=== PATIENT | female | born 2000 | race Caucasian/White ===

== ENCOUNTER 2019-10-30 02:37 | Inpatient (IN) | payer MEDICAID ==
[2019-10-30] MEDS ORDERED: Sodium Chloride 0.9% 10 ML SDV IV PRN (05:22)
[2019-10-30] MEDS ORDERED: Misoprostol 200 MCG Tab PO PRN (05:22)
[2019-10-30] MEDS ORDERED: Carboprost Tromethamine 250 MCG/1 ML Amp IM PRN (05:22)
[2019-10-30] MEDS ORDERED: Tranexamic Acid 1,000 MG in Sodium Chloride 0.9% 100 ML IV PRN (05:22)
[2019-10-30] MEDS ORDERED: Ondansetron 4 MG/2 ML SDV IVPUSH PRN (05:22)
[2019-10-30] MEDS ORDERED: Lidocaine 1% 50 ML MDV INJECT PRN (05:22)
[2019-10-30] MEDS ORDERED: Water For Irrigation,Sterile 1,000 ML Container IRR PRN (05:22)
[2019-10-30] MEDS ORDERED: Sodium Chloride 0.9% 2.5 ML Syringe FLUSH PRN (05:22)
[2019-10-30] MEDS ORDERED: Sodium Chloride 0.9% 10 ML Syringe FLUSH PRN (05:22)
[2019-10-30] MEDS ORDERED: Methylergonovine 0.2 MG/1 ML Amp IM PRN (05:22)
[2019-10-30] MEDS ORDERED: Oxytocin/0.9 % Sodium Chloride 30 UNIT/500 ML BAG IV SCH (05:30)
[2019-10-30] MEDS ORDERED: Lactated Ringers 1,000 ML IV SCH (05:30)
--- NOTE | 2019-10-30 07:41 | PCM.LDHP ---
L&D History of Present Illness - General Date of Service: 10/30/19 Admit Problem/Dx: Patient Status Order with Admit Dx/Problem 10/30/19 02:40 Patient Status [ADT] Routine 10/30/19 05:23 Patient Status [ADT] Routine Admission Diagnosis/Problem Admission Diagnosis/Problem Source of Information: Patient History Limitations: Reports: No Limitations - History of Present Illness Improves with: Reports: None Worsens with: Reports: None Associated Symptoms: Reports: N - Related Data Allergies/Adverse Reactions: Allergies Allergy/AdvReac Type Severity Reaction Status Date / Time bee venom protein (honey bee) Allergy Swelling Verified 10/30/19 03:35 cinnamon Allergy Anaphylactic Verified 10/30/19 03:35 Shock morphine Allergy Anaphylactic Verified 10/07/19 13:31 Shock shellfish derived Allergy Anaphylactic Verified 10/30/19 03:35 Shock iv contrast Allergy Anaphylactic Uncoded 10/30/19 03:35 Shock Home Medications: Home Meds . [No Known Home Meds] 03/19/19 [History] Past Medical History HEENT 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: None Respiratory 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: Asthma, Other (See Below) Other Respiratory History: excercise induced asthma Gastrointestinal 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: Inflammatory Bowel Disease, Other (See Below) Other Gastrointestinal History: hx of IBS Genitourinary 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: Renal Calculus [employer] 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: , Spontaneous Neurological 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: Migraines Psychiatric 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: Anxiety, Depression, PTSD Endocrine/Metabolic 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: None Dermatologic 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: None - Past Surgical History HEENT Surgical 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: Oral Surgery, Tonsillectomy Other HEENT Surgeries/Procedures: wisdom teeth extraction Respiratory Surgical 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: None GI Surgical 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: Cholecystectomy Female Surgical 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: None Endocrine Surgical 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: Other (See Below) Other Endocrine Surgeries/Procedures: thyroglassal duct cyst excision Neurological Surgical 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: None Dermatological Surgical 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: Other (See Below) Social & Family History - Family History Cardiac: Reports: High Cholesterol, Hypertension, NE OBGYN: Reports: Neurological: Reports: CVA Psychiatric: Reports: Anxiety, Bipolar Endocrine/Metabolic: Reports: Diabetes, type II Oncologic: Reports: Cervix, Colon, Lung - Tobacco Use Smoking Status *Q: Former Smoker Years of Tobacco use: 8 Used Tobacco, but Quit: Yes Month/Year Tobacco Last Used: 10/2018 - Caffeine Use Caffeine Use: Reports: None - Recreational Drug Use Recreational Drug Use: No H&P Review of Systems - Review of Systems: Review Of Systems: See Below General: Reports: No Symptoms HEENT: Reports: No Symptoms Pulmonary: Reports: No Symptoms Cardiovascular: Reports: No Symptoms Gastrointestinal: Reports: No Symptoms Genitourinary: Reports: No Symptoms Musculoskeletal: Reports: No Symptoms Skin: Reports: No Symptoms Psychiatric: Reports: No Symptoms Neurological: Reports: No Symptoms Hematologic/Lymphatic: Reports: No Symptoms Immunologic: Reports: No Symptoms L&D Exam - Exam Exam: See Below - Vital Signs Weight: 72.121 kg - OB Specific Fundal Height In cm: 37 Contraction Intensity: Mild to Moderate Movement: Active Heart Tones: Present Presentation: Vertex - Shah Score Shah Score Cervix Position: Anterior Shah Score Consistency: Soft Shah Score Effacement: >80% Shah Score Dilation: > 5 cm Shah Score 's Station: -2 Shah Score Total: 11 - Patient Data Lab Results Last 24 hrs: Laboratory Results - last 24 hr 10/30/19 10/30/19 Range/Units 05:47 05:47 WBC 12.84 H (4.0-11.0) K/uL RBC 4.21 L (4.30-5.90) M/uL Hgb 11.8 L (12.0-16.0) g/dL Hct 34.9 L (36.0-46.0) % MCV 82.9 (80.0-98.0) fL MCH 28.0 (27.0-32.0) pg MCHC 33.8 (31.0-37.0) g/dL RDW Std Deviation 41.7 (28.0-62.0) fl RDW Coeff of [place] 14 (11.0-15.0) % Plt Count 299 (150-400) K/uL MPV 10.30 (7.40-12.00) fL Nucleated RBC % 0.0 /100WBC Nucleated RBCs # 0 K/uL Blood Type O POSITIVE Antibody Screen NEGATIVE Result Diagrams: 10/30/19 05:47 Problem List Initiated/Reviewed/Updated: Yes Orders Last 24hrs: Active Orders 24 hr Category Date Time Status Patient Status [ADT] Routine ADT 10/30/19 05:23 Active Heart Tones [RC] CONTINUOUS Care 10/30/19 05:23 Active Non Stress Test [RC] PER UNIT ROUTINE Care 10/30/19 03:35 Active May Shower [RC] ASDIRECTED Care 10/30/19 05:23 Active Notify Provider [RC] PRN Care 10/30/19 05:23 Active Up ad Flaca [RC] ASDIRECTED Care 10/30/19 03:35 Active Vaginal Exam [RC] Click to Edit Care 10/30/19 03:35 Active Vital Signs [RC] PER UNIT ROUTINE Care 10/30/19 03:35 Active RAPID PLASMA REAGIN, QUANT [REF] Routine Lab 10/30/19 05:47 Received Carboprost Tromethamine [Hemabate DS] Med 10/30/19 05:22 Active 250 mcg IM ASDIRECTED PRN Lactated Ringers [Ringers, Lactated] 1,000 ml Med 10/30/19 05:30 Active IV ASDIRECTED Lidocaine 1% [Xylocaine 1%] Med 10/30/19 05:22 Active 50 ml INJECT ONETIME PRN Methylergonovine [Methergine] Med 10/30/19 05:22 Active 0.2 mg IM ASDIRECTED PRN Ondansetron [Zofran] Med 10/30/19 05:22 Active 4 mg IVPUSH Q6H PRN Oxytocin/0.9 % Sodium Chloride [Oxytocin 30 Unit/500 ML Med 10/30/19 05:30 Active -NS] 30 unit in 500 ml IV TITRATE Sodium Chloride 0.9% [Normal Saline] Med 10/30/19 05:22 Active 10 ml IV ASDIRECTED PRN Sodium Chloride 0.9% [Saline Flush] Med 10/30/19 05:22 Active 10 ml FLUSH ASDIRECTED PRN Sodium Chloride 0.9% [Saline Flush] Med 10/30/19 05:22 Active 2.5 ml FLUSH ASDIRECTED PRN Tranexamic Acid [Cyklokapron] 1,000 mg Med 10/30/19 05:22 Active Sodium Chloride 0.9% [Normal Saline] 100 ml IV ONETIME Water For Irrigation,Sterile [Sterile Water for Med 10/30/19 05:22 Active Irrigation] 1,000 ml IRR ASDIRECTED PRN miSOPROStoL [Cytotec] Med 10/30/19 05:22 Active 200 mcg PO ONETIME PRN Scalp Electrode [WOMSER] Per Unit Routine Oth 10/30/19 05:23 Ordered Peripheral IV Insertion Adult [OM.PC] Routine Oth 10/30/19 05:23 Ordered Resuscitation Status Routine Resus Stat 10/30/19 03:35 Ordered Medication Orders Carboprost Tromethamine (Hemabate Ds) 250 mcg IM ASDIRECTED PRN PRN Reason: Post Hemorrhage Tranexamic Acid 1,000 mg/ (Sodium Chloride) 110 mls @ 660 mls/hr IV ONETIME PRN PRN Reason: Bleeding Lactated Ringer's (Ringers, Lactated) 1,000 mls @ 150 mls/hr IV ASDIRECTED JAZ Oxytocin/Sodium Chloride (Oxytocin 30 Unit/500 Ml-Ns) 30 unit in 500 mls @ 999 mls/hr IV TITRATE J[facility] Lidocaine HCl (Xylocaine 1%) 50 ml INJECT ONETIME PRN PRN Reason: Laceration repair Methylergonovine Maleate (Methergine) 0.2 mg IM ASDIRECTED PRN PRN Reason: Post Hemorrhage Misoprostol (Cytotec) 200 mcg PO ONETIME PRN PRN Reason: Post Hemorrhage Ondansetron HCl (Zofran) 4 mg IVPUSH Q6H PRN PRN Reason: Nausea/Vomiting Sodium Chloride (Saline Flush) 10 ml FLUSH ASDIRECTED PRN PRN Reason: Keep Vein Open Sodium Chloride (Saline Flush) 2.5 ml FLUSH ASDIRECTED PRN PRN Reason: Keep Vein Open Sodium Chloride (Normal Saline) 10 ml IV ASDIRECTED PRN PRN Reason: IV Use Sterile Water (Sterile Water For Irrigation) 1,000 ml IRR ASDIRECTED PRN PRN Reason: delivery Assessment/Plan Comment:: IUP 398+ wks doing well in early active labor.
[2019-10-30] MEDS ORDERED: fentaNYL 100 MCG/2 ML SDV ONE (08:28)
[2019-10-30] MEDS ORDERED: Ropivacaine 0.2% 2 MG/ML 20 ML SDV ONE (08:29)
--- NOTE | 2019-10-30 08:51 | PCM.PREANE ---
Preanesthetic Assessment - Anesthesia/Transfusion/Family Hx Anesthesia History: Prior Anesthesia Without Reaction Family History of Anesthesia Reaction: No Transfusion History: No Prior Transfusion(s) - Review of Systems General: No Symptoms Pulmonary: No Symptoms Cardiovascular: No Symptoms Gastrointestinal: Abdominal Pain Neurological: No Symptoms Other: Reports: None - Physical Assessment Height: 5 ft 5 in Weight: 72.121 kg ASA Class: 2E Mental Status: Alert & Oriented x3 Airway Class: Mallampati = 2 Dentition: Reports: Normal Dentition ROM/Head Extension: Full Lungs: Clear to Auscultation, Normal Respiratory Effort Cardiovascular: Regular Rate, Regular Rhythm - Lab Values: Laboratory Last Values WBC 12.84 K/uL (4.0-11.0) H 10/30/19 05:47 RBC 4.21 M/uL (4.30-5.90) L 10/30/19 05:47 Hgb 11.8 g/dL (12.0-16.0) L 10/30/19 05:47 Hct 34.9 % (36.0-46.0) L 10/30/19 05:47 MCV 82.9 fL (80.0-98.0) 10/30/19 05:47 MCH 28.0 pg (27.0-32.0) 10/30/19 05:47 MCHC 33.8 g/dL (31.0-37.0) 10/30/19 05:47 RDW Std Deviation 41.7 fl (28.0-62.0) 10/30/19 05:47 RDW Coeff of Yuko 14 % (11.0-15.0) 10/30/19 05:47 Plt Count 299 K/uL (150-400) 10/30/19 05:47 MPV 10.30 fL (7.40-12.00) 10/30/19 05:47 Nucleated RBC % 0.0 /100WBC 10/30/19 05:47 Nucleated RBCs # 0 K/uL 10/30/19 05:47 Blood Type O POSITIVE 10/30/19 05:47 Antibody Screen NEGATIVE 10/30/19 05:47 - Allergies Allergies/Adverse Reactions: Allergies Allergy/AdvReac Type Severity Reaction Status Date / Time bee venom protein (honey bee) Allergy Swelling Verified 10/30/19 03:35 cinnamon Allergy Anaphylactic Verified 10/30/19 03:35 Shock morphine Allergy Anaphylactic Verified 10/07/19 13:31 Shock shellfish derived Allergy Anaphylactic Verified 10/30/19 03:35 Shock iv contrast Allergy Anaphylactic Uncoded 10/30/19 03:35 Shock - Blood Blood Available: No - Anesthesia Plan Pre-Op Medication Ordered: None - Acknowledgements Anesthesia Type Planned: Epidural Pt an Appropriate Candidate for the Planned Anesthesia: Yes Alternatives and Risks of Anesthesia Discussed w Pt/Guardian: Yes Pt/Guardian Understands and Agrees with Anesthesia Plan: Yes Additional Comments: G$P1, moving rapidly from 6 to 8 in last 5 min, difficult to sit up and not move , epid placed on 3rd attempt, threaded easily no blood or CSF, large loading dose administered to speed onset. Delivered immediately after taping epidural. no comps. PreAnesthesia Questionnaire HEENT 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: None Respiratory 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: Asthma, Other (See Below) Other Respiratory History: excercise induced asthma Gastrointestinal 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: Inflammatory Bowel Disease, Other (See Below) Other Gastrointestinal History: hx of IBS Genitourinary 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: Renal Calculus [employer] 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: , Spontaneous Neurological 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: Migraines Psychiatric 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: Anxiety, Depression, PTSD Endocrine/Metabolic 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: None Dermatologic 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: None - Past Surgical History HEENT Surgical 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: Oral Surgery, Tonsillectomy Other HEENT Surgeries/Procedures: wisdom teeth extraction Respiratory Surgical 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: None GI Surgical 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: Cholecystectomy Female Surgical 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: None Endocrine Surgical 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: Other (See Below) Other Endocrine Surgeries/Procedures: thyroglassal duct cyst excision Neurological Surgical 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: None Dermatological Surgical 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: Other (See Below) - SUBSTANCE USE Smoking Status *Q: Former Smoker Tobacco Use Within Last Twelve Months: Cigarettes Recreational Drug Use History: No - HOME MEDS Home Medications: Home Meds . [No Known Home Meds] 03/19/19 [History] - CURRENT (IN HOUSE) MEDS Current Meds: Current Medications Carboprost Tromethamine (Hemabate Ds) 250 mcg IM ASDIRECTED PRN PRN Reason: Post Hemorrhage Tranexamic Acid 1,000 mg/ (Sodium Chloride) 110 mls @ 660 mls/hr IV ONETIME PRN PRN Reason: Bleeding Lactated Ringer's (Ringers, Lactated) 1,000 mls @ 150 mls/hr IV ASDIRECTED [facility] Last Admin: 10/30/19 07:35 Dose: 999 mls/hr Oxytocin/Sodium Chloride (Oxytocin 30 Unit/500 Ml-Ns) 30 unit in 500 mls @ 999 mls/hr IV TITRATE [facility] Lidocaine HCl (Xylocaine 1%) 50 ml INJECT ONETIME PRN PRN Reason: Laceration repair Methylergonovine Maleate (Methergine) 0.2 mg IM ASDIRECTED PRN PRN Reason: Post Hemorrhage Misoprostol (Cytotec) 200 mcg PO ONETIME PRN PRN Reason: Post Hemorrhage Ondansetron HCl (Zofran) 4 mg IVPUSH Q6H PRN PRN Reason: Nausea/Vomiting Sodium Chloride (Saline Flush) 10 ml FLUSH ASDIRECTED PRN PRN Reason: Keep Vein Open Sodium Chloride (Saline Flush) 2.5 ml FLUSH ASDIRECTED PRN PRN Reason: Keep Vein Open Sodium Chloride (Normal Saline) 10 ml IV ASDIRECTED PRN PRN Reason: IV Use Sterile Water (Sterile Water For Irrigation) 1,000 ml IRR ASDIRECTED PRN PRN Reason: delivery Discontinued Medications Fentanyl (Sublimaze) Confirm Administered Dose 100 mcg .ROUTE .STK-MED ONE Stop: 10/30/19 08:29 Fentanyl/Bupivacaine HCl (Spikcckn-Qafbg-Ra 2 Mcg/Ml-0.125%) Confirm Administered Dose 100 mls @ as directed .ROUTE .STK-MED ONE Stop: 10/30/19 08:29 Ropivacaine (Naropin 0.2%) Confirm Administered Dose 20 ml .ROUTE .STK-MED ONE Stop: 10/30/19 08:30
[2019-10-30] MEDS ORDERED: Docusate Sodium 100 MG Cap PO PRN (08:57)
[2019-10-30] MEDS ORDERED: oxyCODONE 5 MG Tab PO PRN (08:57)
[2019-10-30] MEDS ORDERED: Ibuprofen 400 MG Tab PO PRN (08:57)
[2019-10-30] MEDS ORDERED: Witch Hazel Medicated Pads 40/Jar TOP PRN (08:57)
[2019-10-30] MEDS ORDERED: Benzocaine/Menthol 20%-0.5% Spray 78 GM Cannister TOP PRN (08:57)
[2019-10-30] MEDS ORDERED: Acetaminophen 500 MG Tab PO PRN ×2 (08:57)
[2019-10-30] MEDS ORDERED: Bisacodyl 10 MG Supp RECTAL PRN (08:57)
[2019-10-30] MEDS ORDERED: Lanolin 100% Cream 7 GM Tube TOP PRN (08:57)
--- NOTE | 2019-10-30 10:44 | OR ---
SURGEON: Rodrick Singh MD DATE OF PROCEDURE: 10/30/2019 Ms. Tapia is 19-year-old. She is para 1-0-0-1. She is term. She is 38+ weeks. She is followed in our clinic primarily by our nurse graduate advisor, Madyson Lopez. The patient is admitted in active labor. At the time of admission, she was 5, complete vertex, and -1 station. I did an artificial rupture of the membrane and she has clear fluid. The patient continued to progress. An attempt for epidural was done, but the patient rather progressed quickly and became complete, complete and was able to accomplish normal spontaneous vaginal delivery of a female fetus. score reported to be 8 and 9. The weight is not available. The placenta delivered spontaneous, complete, and intact without any problem. Estimated blood loss was 300 to 350 mL. There was no episiotomy. There was no laceration, and heart rate was category 1 through the entire process of labor. There was no complication in the labor and delivery process. RASHAAD / GERI /[id number]
[2019-10-30] MEDS: Ibuprofen 800 MG Tab PO PRN (20:22)
[2019-10-31] MEDS: Ibuprofen 800 MG Tab PO PRN ×2 (04:38→11:33)
--- NOTE | 2019-10-31 09:16 | PCM.PNPP ---
- General Info Date of Service: 10/31/19 Functional Status: Reports: Pain Controlled - Review of Systems General: Reports: No Symptoms HEENT: Reports: No Symptoms Pulmonary: Reports: No Symptoms Cardiovascular: Reports: No Symptoms Gastrointestinal: Reports: No Symptoms Genitourinary: Reports: No Symptoms Musculoskeletal: Reports: No Symptoms Skin: Reports: No Symptoms Neurological: Reports: No Symptoms Psychiatric: Reports: No Symptoms - General Info Date of Service: 10/31/19 - Patient Data Vital Signs - Most Recent: Last Vital Signs Temp 36.3 C 10/31/19 07:47 Pulse 61 10/31/19 07:47 Resp 16 10/31/19 07:47 BP 102/47 L 10/31/19 07:47 Pulse Ox 97 10/31/19 07:47 Weight - Most Recent: 72.121 kg Lab Results - Last 24 Hours: Laboratory Results - last 24 hr 10/31/19 Range/Units 05:53 Hgb 11.7 L (12.0-16.0) g/dL Hct 35.5 L (36.0-46.0) % Med Orders - Current: Current Medications Acetaminophen (Tylenol Extra Strength) 500 mg PO Q4H PRN PRN Reason: Pain Acetaminophen (Tylenol Extra Strength) 1,000 mg PO Q4H PRN PRN Reason: Pain Benzocaine/Menthol (Dermoplast Pain Relief 20%-0.5% [place]) 78 gm TOP ASDIRECTED PRN PRN Reason: Perineal Comfort Measure Last Admin: 10/30/19 09:50 Dose: 1 canister Bisacodyl (Dulcolax) 10 mg RECTAL ONETIME PRN PRN Reason: Constipation Carboprost Tromethamine (Hemabate Ds) 250 mcg IM ASDIRECTED PRN PRN Reason: Post Hemorrhage Docusate Sodium (Colace) 100 mg PO BID PRN PRN Reason: Constipation Last Admin: 10/30/19 20:23 Dose: 100 mg Emollient Ointment (Lansinoh Hpa) 0 gm TOP ASDIRECTED PRN PRN Reason: Sore Nipples Last Admin: 10/30/19 09:51 Dose: 1 tube Tranexamic Acid 1,000 mg/ (Sodium Chloride) 110 mls @ 660 mls/hr IV ONETIME PRN PRN Reason: Bleeding Lactated Ringer's (Ringers, Lactated) 1,000 mls @ 150 mls/hr IV ASDIRECTED [facility] Last Infusion: 10/30/19 10:56 Dose: Infused Oxytocin/Sodium Chloride (Oxytocin 30 Unit/500 Ml-Ns) 30 unit in 500 mls @ 999 mls/hr IV TITRATE [facility] Last Infusion: 10/30/19 10:55 Dose: Infused Ibuprofen (Motrin) 400 mg PO Q4H PRN PRN Reason: Pain Ibuprofen (Motrin) 800 mg PO Q6H PRN PRN Reason: Pain Last Admin: 10/31/19 04:38 Dose: 800 mg Lidocaine HCl (Xylocaine 1%) 50 ml INJECT ONETIME PRN PRN Reason: Laceration repair Methylergonovine Maleate (Methergine) 0.2 mg IM ASDIRECTED PRN PRN Reason: Post Hemorrhage Misoprostol (Cytotec) 200 mcg PO ONETIME PRN PRN Reason: Post Hemorrhage Ondansetron HCl (Zofran) 4 mg IVPUSH Q6H PRN PRN Reason: Nausea/Vomiting Oxycodone HCl (Oxycodone) 5 mg PO Q2H PRN PRN Reason: Pain Sodium Chloride (Saline Flush) 10 ml FLUSH ASDIRECTED PRN PRN Reason: Keep Vein Open Sodium Chloride (Saline Flush) 2.5 ml FLUSH ASDIRECTED PRN PRN Reason: Keep Vein Open Sodium Chloride (Normal Saline) 10 ml IV ASDIRECTED PRN PRN Reason: IV Use Sterile Water (Sterile Water For Irrigation) 1,000 ml IRR ASDIRECTED PRN PRN Reason: delivery Witch Stacey (Tucks) 1 pad TOP ASDIRECTED PRN PRN Reason: comfort care Last Admin: 10/30/19 09:52 Dose: 1 tub Discontinued Medications Fentanyl (Sublimaze) Confirm Administered Dose 100 mcg .ROUTE .STK-MED ONE Stop: 10/30/19 08:29 Last Admin: 10/30/19 23:58 Dose: Not Given Fentanyl/Bupivacaine HCl (Nbnlfaon-Dowmn-Md 2 Mcg/Ml-0.125%) Confirm Administered Dose 100 mls @ as directed .ROUTE .STK-MED ONE Stop: 10/30/19 08:29 Last Admin: 10/30/19 23:58 Dose: Not Given Ropivacaine (Naropin 0.2%) Confirm Administered Dose 20 ml .ROUTE .STK-MED ONE Stop: 10/30/19 08:30 Last Admin: 10/30/19 23:58 Dose: Not Given - Infant Interaction Infant Disposition, : [place] in Room with Family Interaction: Holding Infant Feeding: Attempted ; Nursed Fair/Poor Support Person: - Recovery Exam Fundal Tone: Firm Fundal Level: 2 Fingerbreadths Below Umbilicus Fundal Placement: Midline Lochia Amount: Scant Lochia Color: Rubra/Red Perineum Description: Intact, Minimal Bruising/Swelling, Edematous, Other (see below) Other Perinuem Description: labial swelling Episiotomy/Laceration: None Bladder Status: Voiding Urinary Elimination: Voided - Exam General: Alert, Oriented HEENT: Pupils Equal Neck: Supple Lungs: Clear to Auscultation, Normal Respiratory Effort Cardiovascular: Regular Rate, Regular Rhythm GI/Abdominal Exam: Normal Bowel Sounds, Soft, Non-Tender, No Organomegaly, No Distention, No Abnormal Bruit, No Mass, Pelvis Stable Extremities: Normal Inspection, Normal Range of Motion, Non-Tender, No Pedal Edema, Normal Capillary Refill Skin: Warm, Dry, Intact Wound/Incisions: Healing Well Neurological: No New Focal Deficit Psy/Mental Status: Alert, Normal Affect, Normal Mood - Problem List Review Problem List Initiated/Reviewed/Updated: Yes - My Orders Last 24 Hours: My Active Orders 10/30/19 08:57 Patient Status [ADT] Routine May Shower [RC] ASDIRECTED Up ad Flaca [RC] ASDIRECTED Vital Signs [RC] PER UNIT ROUTINE Acetaminophen [Tylenol Extra Strength] 1,000 mg PO Q4H PRN Acetaminophen [Tylenol Extra Strength] 500 mg PO Q4H PRN Benzocaine/Menthol [Dermoplast Pain Relief 20%-0.5% [place]] 78 gm TOP ASDIRECTED PRN Docusate Sodium [Colace] 100 mg PO BID PRN Ibuprofen [Motrin] 400 mg PO Q4H PRN Ibuprofen [Motrin] 800 mg PO Q6H PRN Lanolin [Lansinoh HPA] See Dose Instructions TOP ASDIRECTED PRN Witch Stacey [Tucks] 1 pad TOP ASDIRECTED PRN bisacodyL [Dulcolax] 10 mg RECTAL ONETIME PRN oxyCODONE 5 mg PO Q2H PRN Assess Lochia [WOMSER] Per Unit Routine Assess Uterine Involution [WOMSER] Per Unit Routine Peripheral IV Discontinue [OM.PC] Routine 10/30/19 Dinner Regular Diet [DIET] - Assessment Assessment:: Status post normal spontaneous vaginal delivery she is doing well we will send her home today - Plan Plan:: IUP 398+ wks doing well in early active labor.
--- NOTE | 2019-10-31 09:17 | PCM.DCSUM1 ---
Discharge Summary - Hospital Course Diagnosis: Stroke: No - Discharge Data Discharge Date: 10/31/19 Discharge Disposition: Home, Self-Care 01 Condition: Good - Referral to Home Health Primary Care Physician: PCP None - Patient Instructions Diet: Usual Diet as Tolerated Activity: As Tolerated Driving: Do Not Drive Showering/Bathing: May Shower - Discharge Plan Home Medications: Home Meds . [No Known Home Meds] 03/19/19 [History] Referrals: [facility] [Outside] Madyson Lopez CNM [Mid-] - 12/11/19 3:00 pm - Discharge Summary/Plan Comment DC Time >30 min.: Yes - General Info Date of Service: 10/31/19 Functional Status: Reports: Pain Controlled - Review of Systems General: Reports: No Symptoms HEENT: Reports: No Symptoms Pulmonary: Reports: No Symptoms Cardiovascular: Reports: No Symptoms Gastrointestinal: Reports: No Symptoms Genitourinary: Reports: No Symptoms Musculoskeletal: Reports: No Symptoms Skin: Reports: No Symptoms Neurological: Reports: No Symptoms Psychiatric: Reports: No Symptoms - Patient Data Vitals - Most Recent: Last Vital Signs Temp 36.3 C 10/31/19 07:47 Pulse 61 10/31/19 07:47 Resp 16 10/31/19 07:47 BP 102/47 L 10/31/19 07:47 Pulse Ox 97 10/31/19 07:47 Weight - Most Recent: 72.121 kg Lab Results - Last 24 hrs: Laboratory Results - last 24 hr 10/31/19 Range/Units 05:53 Hgb 11.7 L (12.0-16.0) g/dL Hct 35.5 L (36.0-46.0) % Med Orders - Current: Current Medications Acetaminophen (Tylenol Extra Strength) 500 mg PO Q4H PRN PRN Reason: Pain Acetaminophen (Tylenol Extra Strength) 1,000 mg PO Q4H PRN PRN Reason: Pain Benzocaine/Menthol (Dermoplast Pain Relief 20%-0.5% [place]) 78 gm TOP ASDIRECTED PRN PRN Reason: Perineal Comfort Measure Last Admin: 10/30/19 09:50 Dose: 1 canister Bisacodyl (Dulcolax) 10 mg RECTAL ONETIME PRN PRN Reason: Constipation Carboprost Tromethamine (Hemabate Ds) 250 mcg IM ASDIRECTED PRN PRN Reason: Post Hemorrhage Docusate Sodium (Colace) 100 mg PO BID PRN PRN Reason: Constipation Last Admin: 10/30/19 20:23 Dose: 100 mg Emollient Ointment (Lansinoh Hpa) 0 gm TOP ASDIRECTED PRN PRN Reason: Sore Nipples Last Admin: 10/30/19 09:51 Dose: 1 tube Tranexamic Acid 1,000 mg/ (Sodium Chloride) 110 mls @ 660 mls/hr IV ONETIME PRN PRN Reason: Bleeding Lactated Ringer's (Ringers, Lactated) 1,000 mls @ 150 mls/hr IV ASDIRECTED [facility] Last Infusion: 10/30/19 10:56 Dose: Infused Oxytocin/Sodium Chloride (Oxytocin 30 Unit/500 Ml-Ns) 30 unit in 500 mls @ 999 mls/hr IV TITRATE [facility] Last Infusion: 10/30/19 10:55 Dose: Infused Ibuprofen (Motrin) 400 mg PO Q4H PRN PRN Reason: Pain Ibuprofen (Motrin) 800 mg PO Q6H PRN PRN Reason: Pain Last Admin: 10/31/19 04:38 Dose: 800 mg Lidocaine HCl (Xylocaine 1%) 50 ml INJECT ONETIME PRN PRN Reason: Laceration repair Methylergonovine Maleate (Methergine) 0.2 mg IM ASDIRECTED PRN PRN Reason: Post Hemorrhage Misoprostol (Cytotec) 200 mcg PO ONETIME PRN PRN Reason: Post Hemorrhage Ondansetron HCl (Zofran) 4 mg IVPUSH Q6H PRN PRN Reason: Nausea/Vomiting Oxycodone HCl (Oxycodone) 5 mg PO Q2H PRN PRN Reason: Pain Sodium Chloride (Saline Flush) 10 ml FLUSH ASDIRECTED PRN PRN Reason: Keep Vein Open Sodium Chloride (Saline Flush) 2.5 ml FLUSH ASDIRECTED PRN PRN Reason: Keep Vein Open Sodium Chloride (Normal Saline) 10 ml IV ASDIRECTED PRN PRN Reason: IV Use Sterile Water (Sterile Water For Irrigation) 1,000 ml IRR ASDIRECTED PRN PRN Reason: delivery Witch Stacey (Tucks) 1 pad TOP ASDIRECTED PRN PRN Reason: comfort care Last Admin: 10/30/19 09:52 Dose: 1 tub Discontinued Medications Fentanyl (Sublimaze) Confirm Administered Dose 100 mcg .ROUTE .[employer] ONE Stop: 10/30/19 08:29 Last Admin: 10/30/19 23:58 Dose: Not Given Fentanyl/Bupivacaine HCl (Rjzsmrcd-Mhjbr-Fi 2 Mcg/Ml-0.125%) Confirm Administered Dose 100 mls @ as directed .ROUTE .[employer] ONE Stop: 10/30/19 08:29 Last Admin: 10/30/19 23:58 Dose: Not Given Ropivacaine (Naropin 0.2%) Confirm Administered Dose 20 ml .ROUTE .[employer] ONE Stop: 10/30/19 08:30 Last Admin: 10/30/19 23:58 Dose: Not Given - Exam General: Reports: Alert, Oriented HEENT: Reports: Pupils Equal, Pupils Reactive, EOMI, Mucous Membr. Moist/Shaw Neck: Reports: Supple Lungs: Reports: Clear to Auscultation, Normal Respiratory Effort Cardiovascular: Reports: Regular Rate, Regular Rhythm GI/Abdominal Exam: Normal Bowel Sounds, Soft, Non-Tender, No Organomegaly, No Distention, No Abnormal Bruit, No Mass, Pelvis Stable (Female) Exam: Normal External Exam, Normal Speculum Exam, Normal Bimanual Exam Rectal (Female) Exam: Normal Exam, Normal Rectal Tone Back Exam: Reports: Normal Inspection, Full Range of Motion Extremities: Normal Inspection, Normal Range of Motion, Non-Tender, No Pedal Edema, Normal Capillary Refill Skin: Reports: Warm, Dry, Intact Wound/Incisions: Reports: Healing Well Neurological: Reports: No New Focal Deficit Psy/Mental Status: Reports: Alert, Normal Affect, Normal Mood
== END 2019-10-31 11:57 | disposition home or self-care (01) | DRG 807 ==
LOC: MW.OBCHECK 02:37 → MW.OB 02:38 → MW.OBCHECK 05:23 → OBSVTOIN 08:43 → MW.OB 12:37
PROVIDERS: ADMIT Obstetrics & Gynecology; ATTEND Obstetrics & Gynecology
PROC: 10E0XZZ Delivery of Products of Conception, External Approach (ICD-10-PCS; principal; 2019-10-30)
PROC: 10907ZC Drainage of Amniotic Fluid, Therapeutic from Products of Conception, Via Natural or Artificial Opening (ICD-10-PCS; 2019-10-30)
PROC: 3E0R3BZ Introduction of Anesthetic Agent into Spinal Canal, Percutaneous Approach (ICD-10-PCS; 2019-10-30)
DX: O80 Encounter for full-term uncomplicated delivery (principal); Z37.0 Single live birth; Z3A.38 38 weeks gestation of pregnancy; Z91.013 Allergy to seafood; Z91.030 Bee allergy status; Z87.891 Personal history of nicotine dependence
CPT/HCPCS: 36415; 59025; 59409; 85014; 85018; 85027; 86593; 86850; 86900; 86901; A9270-GY; J2590; J2795; J3010; J7120

== ENCOUNTER 2019-12-13 17:07 | Inpatient (IN) | payer MEDICAID ==
[2019-12-13] MEDS ORDERED: Sodium Chloride 0.9% 1,000 ML IV ONE (18:23)
--- NOTE | 2019-12-13 18:23 | EDM.PDOC ---
ED HPI GENERAL MEDICAL PROBLEM - General Chief Complaint: Fever Stated Complaint: FEVER Time Seen by Provider: 12/13/19 17:30 Source of Information: Reports: Patient - History of Present Illness INITIAL COMMENTS - FREE TEXT/NARRATIVE: Patient presents complaining of fever. She said she had a temperature of 105 yesterday, and that it was 105 again today hours prior to arrival. She stated that her temperature with an oral thermometer. She states that after measuring her temperature today, she laid down and took a nap. She states that a family member placed an ice pack on her forehead and that she fell asleep. When she woke up, she came here. She denies taking any antipyretics. She complains of throat pain, and states that she has had nausea and 5 or 6 episodes of nonbloody nonbilious emesis in the past 24 hours. She denies coughing or sneezing. She denies sore throat. She complains of dysuria, ear pain, runny nose, myalgias, and headache. Body Pain Score (Numeric/FACES): 7 - Related Data Allergies Allergy/AdvReac Type Severity Reaction Status Date / Time bee venom protein (honey bee) Allergy Swelling Verified 12/13/19 17:20 cinnamon Allergy Anaphylactic Verified 12/13/19 17:20 Shock morphine Allergy Anaphylactic Verified 12/13/19 17:20 Shock shellfish derived Allergy Anaphylactic Verified 12/13/19 17:20 Shock iv contrast Allergy Anaphylactic Uncoded 12/13/19 17:20 Shock Home Meds: Home Meds . [No Known Home Meds] 03/19/19 [History] Past Medical History HEENT 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: None Respiratory 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: Asthma, Other (See Below) Other Respiratory History: excercise induced asthma Gastrointestinal 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: Inflammatory Bowel Disease, Other (See Below) Other Gastrointestinal History: hx of IBS Genitourinary 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: Renal Calculus [place] 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: , Spontaneous Neurological 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: Migraines Psychiatric 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: Anxiety, Depression, PTSD Endocrine/Metabolic 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: None Dermatologic 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: None - Infectious Disease History Infectious Disease 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: None - Past Surgical History HEENT Surgical 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: Oral Surgery, Tonsillectomy Other HEENT Surgeries/Procedures: wisdom teeth extraction Respiratory Surgical 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: None GI Surgical 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: Cholecystectomy Female Surgical 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: None Endocrine Surgical 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: Other (See Below) Other Endocrine Surgeries/Procedures: thyroglassal duct cyst excision Neurological Surgical 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: None Dermatological Surgical 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: Other (See Below) Social & Family History - Family History Family Medical History: Noncontributory Cardiac: Reports: High Cholesterol, Hypertension, NM OBGYN: Reports: Neurological: Reports: CVA Psychiatric: Reports: Anxiety, Bipolar Endocrine/Metabolic: Reports: Diabetes, type II Oncologic: Reports: Cervix, Colon, Lung - Tobacco Use Smoking Status *Q: Never Smoker Second Hand Smoke Exposure: No - Caffeine Use Caffeine Use: Reports: None - Recreational Drug Use Recreational Drug Use: No ED ROS GENERAL - Review of Systems Review Of Systems: See Below (Review of systems is positive for fever, dysuria, decreased energy, nausea, vomiting. Review of systems is negative for diarrhea , neck stiffness, skin rash.) ED EXAM, GENERAL - Physical Exam Exam: See Below Free Text/Narrative:: General: alert, well appearing, no acute distress HEENT: Atraumatic, normocephalic, pupils reactive, negative for conjunctival pallor or scleral icterus, mucous membranes moist, throat clear, midline uvula, no tonsillar erythema or exudate, handling oral secretions well. Neck: supple, nontender, trachea midline. Lungs: Clear to auscultation, breath sounds equal bilaterally, chest nontender. Heart: S1S2, regular, negative for clicks, rubs, or JVD. Abdomen: Soft, nondistended, nontender. Negative for masses or hepatosplenomegaly. Negative for costovertebral tenderness. Skin: warm, dry, good turgor. Musculoskeletal: soft compartments. Extremities: Atraumatic, negative for cords or calf pain. Neurovascular unremarkable. Neuro: Awake, alert, oriented. Cranial nerves II through XII unremarkable. Cerebellum unremarkable. Motor and sensory unremarkable throughout. Exam nonfocal. Course - Vital Signs Text/Narrative:: UA: pos nit, mod LE, neg ketones, 30-40 WBCs Ucg: neg Cbc: wbc 18.23 (leukocytosis), otherwise unremarkable Cmp: mildly elev cr (1.1), mild hyergly (123) Influenza: neg Rapid strep: neg lactate: 1.3 (neg) UA: pos nitrite, mod LE, 30-40 wbc Cxr: no acute infiltrate CT abd/pelvis: pending at time of admission 7:20pm Have ordered ceftriaxone for acute pyelonephritis and requested page of hospitalist. 7:27pm Case d/w Dr. Rodriguez, hospitalist attending. Agrees to admit pt for IV abxs. I advised him that due to prior hx of renal stones, I decided to add on a CT of abd/pelvis to eval for renal stones. Pt does not c/o flank pain, but since she has a hx of stones, I think it is worth checking to r/o the possibility of an infected stone. He has agreed to f/u on the result of the CT. CT has not been done yet. Pt amenable to admission for presumed acute pyelonephritis. Last Recorded V/S: Last Vital Signs Temp 101.8 F H 12/13/19 18:32 Pulse 112 H 12/13/19 18:42 Resp 20 12/13/19 18:42 BP 111/67 12/13/19 18:42 Pulse Ox 97 12/13/19 18:42 - Orders/Labs/Meds Orders: Active Orders 24 hr Category Date Time Status Admission Status [Patient Status] [ADT] Stat ADT 12/13/19 19:29 Ordered Abdomen Pelvis wo Cont [CT] Stat Exams 12/13/19 19:25 Ordered Chest 2V [CR] Stat Exams 12/13/19 17:51 Ordered CULTURE STREP A CONFIRMATION [] Stat Lab 12/13/19 17:25 Results CULTURE URINE [] Stat Lab 12/13/19 18:35 Received STREP SCRN A RAPID W CULT CONF [] Stat Lab 12/13/19 17:25 Results cefTRIAXone [Rocephin in Dextrose,Iso-Osm 1 GM/50 ML] 1 Med 12/13/19 19:26 Active gm Premix Bag 1 bag IV ONETIME Medication Orders Ceftriaxone Sodium/Dextrose 1 (gm/ Premix) 50 mls @ 100 mls/hr IV ONETIME ONE Stop: 12/13/19 19:55 Last Admin: 12/13/19 19:33 Dose: 100 mls/hr Labs: Laboratory Tests 12/13/19 12/13/19 12/13/19 Range/Units 18:00 18:00 18:35 WBC 18.23 H (4.0-11.0) K/uL RBC 4.88 (4.30-5.90) M/uL Hgb 13.6 (12.0-16.0) g/dL Hct 39.0 (36.0-46.0) % MCV 79.9 L (80.0-98.0) fL MCH 27.9 (27.0-32.0) pg MCHC 34.9 (31.0-37.0) g/dL RDW Std Deviation 48.7 (28.0-62.0) fl RDW Coeff of [place] 17 H (11.0-15.0) % Plt Count 227 (150-400) K/uL MPV 9.50 (7.40-12.00) fL Neut % (Auto) 85.2 H (48.0-80.0) % Lymph % (Auto) 6.5 L (16.0-40.0) % [place] % (Auto) 8.2 (0.0-15.0) % Eos % (Auto) 0.0 (0.0-7.0) % Baso % (Auto) 0.1 (0.0-1.5) % Neut # (Auto) 15.5 H (1.4-5.7) K/uL Lymph # (Auto) 1.2 (0.6-2.4) K/uL [place] # (Auto) 1.5 H (0.0-0.8) K/uL Eos # (Auto) 0.0 (0.0-0.7) K/uL Baso # (Auto) 0.0 (0.0-0.1) K/uL Nucleated RBC % 0.0 /100WBC Nucleated RBCs # 0 K/uL Lactate (0.20-2.00) mmol/L Sodium 140 (136-145) mmol/L Potassium 3.4 L (3.5-5.1) mmol/L Chloride 103 (98-107) mmol/L Carbon Dioxide 24.1 (21.0-32.0) mmol/L BUN 13 (7.0-18.0) mg/dL Creatinine 1.1 H (0.6-1.0) mg/dL Est Cr Clr Drug Dosing 69.52 mL/min Estimated GFR (MDRD) > 60.0 ml/min Glucose 123 H (74-106) mg/dL Calcium 8.6 (8.5-10.1) mg/dL Total Bilirubin 1.0 (0.2-1.0) mg/dL AST 15 (15-37) IU/L ALT 25 (14-63) IU/L Alkaline Phosphatase 89 (46-116) U/L Total Protein 7.5 (6.4-8.2) g/dL Albumin 3.5 (3.4-5.0) g/dL Globulin 4.0 (2.6-4.0) g/dL Albumin/Globulin Ratio 0.9 (0.9-1.6) Urine Color YELLOW Urine Appearance SLT CLOUDY Urine pH 6.0 (5.0-8.0) Ur Specific [place] 1.010 (1.001-1.035) Urine Protein 100 H (NEGATIVE) mg/dL Urine Glucose (UA) NEGATIVE (NEGATIVE) mg/dL Urine Ketones NEGATIVE (NEGATIVE) mg/dL Urine Occult Blood SMALL H (NEGATIVE) Urine Nitrite POSITIVE H (NEGATIVE) Urine Bilirubin NEGATIVE (NEGATIVE) Urine Urobilinogen 0.2 (<2.0) EU/dL Ur Leukocyte Esterase MODERATE H (NEGATIVE) Urine RBC 0-2 (0-2/HPF) Urine WBC 30-40 (0-5/HPF) Ur Epithelial Cells RARE (NONE-FEW) Urine Bacteria 1+ H (NEGATIVE) Urine HCG, Qual (NEGATIVE) 12/13/19 12/13/19 Range/Units 18:35 18:38 WBC (4.0-11.0) K/uL RBC (4.30-5.90) M/uL Hgb (12.0-16.0) g/dL Hct (36.0-46.0) % MCV (80.0-98.0) fL MCH (27.0-32.0) pg MCHC (31.0-37.0) g/dL RDW Std Deviation (28.0-62.0) fl RDW Coeff of [place] (11.0-15.0) % Plt Count (150-400) K/uL MPV (7.40-12.00) fL Neut % (Auto) (48.0-80.0) % Lymph % (Auto) (16.0-40.0) % [place] % (Auto) (0.0-15.0) % Eos % (Auto) (0.0-7.0) % Baso % (Auto) (0.0-1.5) % Neut # (Auto) (1.4-5.7) K/uL Lymph # (Auto) (0.6-2.4) K/uL [place] # (Auto) (0.0-0.8) K/uL Eos # (Auto) (0.0-0.7) K/uL Baso # (Auto) (0.0-0.1) K/uL Nucleated RBC % /100WBC Nucleated RBCs # K/uL Lactate 1.3 (0.20-2.00) mmol/L Sodium (136-145) mmol/L Potassium (3.5-5.1) mmol/L Chloride (98-107) mmol/L Carbon Dioxide (21.0-32.0) mmol/L BUN (7.0-18.0) mg/dL Creatinine (0.6-1.0) mg/dL Est Cr Clr Drug Dosing mL/min Estimated GFR (MDRD) ml/min Glucose (74-106) mg/dL Calcium (8.5-10.1) mg/dL Total Bilirubin (0.2-1.0) mg/dL AST (15-37) IU/L ALT (14-63) IU/L Alkaline Phosphatase (46-116) U/L Total Protein (6.4-8.2) g/dL Albumin (3.4-5.0) g/dL Globulin (2.6-4.0) g/dL Albumin/Globulin Ratio (0.9-1.6) Urine Color Urine Appearance Urine pH (5.0-8.0) Ur Specific [place] (1.001-1.035) Urine Protein (NEGATIVE) mg/dL Urine Glucose (UA) (NEGATIVE) mg/dL Urine Ketones (NEGATIVE) mg/dL Urine Occult Blood (NEGATIVE) Urine Nitrite (NEGATIVE) Urine Bilirubin (NEGATIVE) Urine Urobilinogen (<2.0) EU/dL Ur Leukocyte Esterase (NEGATIVE) Urine RBC (0-2/HPF) Urine WBC (0-5/HPF) Ur Epithelial Cells (NONE-FEW) Urine Bacteria (NEGATIVE) Urine HCG, Qual NEGATIVE (NEGATIVE) Meds: Medications Generic Name Dose Route Start Last Admin Trade Name Freq PRN Reason Stop Dose Admin Ceftriaxone Sodium/Dextrose 1 50 mls @ 100 mls/hr 12/13/19 19:26 12/13/19 19: 33 gm/ Premix IV 12/13/19 19:55 100 mls/hr ONETIME ONE Administration Discontinued Medications Generic Name Dose Route Start Last Admin Trade Name Elle PRN Reason Stop Dose Admin Acetaminophen 1,000 mg 12/13/19 19:13 Tylenol Extra Strength PO 12/13/19 19:14 ONETIME ONE Sodium Chloride 1,000 mls @ 1,000 mls/hr 12/13/19 18:23 12/13/19 18:41 Normal Saline IV 12/13/19 19:22 1,000 mls/hr .[employer] ONE Administration Departure - Departure Time of Disposition: 19:25 Disposition: Refer to Observation Condition: Good Clinical Impression: Pyelonephritis - Discharge Information Referrals: PCP,Not In Area [Primary Care Provider] - Forms: ED Department Discharge Sepsis Event Note - Evaluation Sepsis Screening Result: No Definite Risk - Focused Exam Vital Signs: Vital Signs Temp Temp Pulse Resp BP Pulse Ox 12/13/19 18:42 112 H 20 111/67 97 12/13/19 18:32 101.8 F H 12/13/19 17:20 99.9 F 130 H 22 H 102/52 L 97 Date Exam was Performed: 12/13/19 Time Exam was Performed: 19:34 - My Orders Last 24 Hours: My Active Orders 12/13/19 17:51 Chest 2V [CR] Stat 12/13/19 18:35 CULTURE URINE [RM] Stat 12/13/19 19:25 Abdomen Pelvis wo Cont [CT] Stat 12/13/19 19:26 cefTRIAXone [Rocephin in Dextrose,Iso-Osm 1 GM/50 ML] 1 gm Premix Bag 1 bag IV ONETIME 12/13/19 19:29 Admission Status [Patient Status] [ADT] Stat - Assessment/Plan Last 24 Hours: My Active Orders 12/13/19 17:51 Chest 2V [CR] Stat 12/13/19 18:35 CULTURE URINE [RM] Stat 12/13/19 19:25 Abdomen Pelvis wo Cont [CT] Stat 12/13/19 19:26 cefTRIAXone [Rocephin in Dextrose,Iso-Osm 1 GM/50 ML] 1 gm Premix Bag 1 bag IV ONETIME 12/13/19 19:29 Admission Status [Patient Status] [ADT] Stat
[2019-12-13 18:43] LABS: BLOOD UREA NITROGEN,BUN 13 mg/dL (7.0-18.0); CARBON DIOXIDE,CO2 24.1 mmol/L (21.0-32.0); CHLORIDE,CL 103 mmol/L (98-107); GLUCOSE RANDOM 123 mg/dL (74-106); POTASSIUM,K 3.4 mmol/L (3.5-5.1); SODIUM,NA 140 mmol/L (136-145)
[2019-12-13] MEDS ORDERED: Acetaminophen 500 MG Tab PO ONE (19:13)
[2019-12-13] MEDS ORDERED: cefTRIAXone 1 GM in Sodium Chloride 0.9% 50 ML IV ONE (19:16)
[2019-12-13] MEDS ORDERED: cefTRIAXone 1 GM in Premix Bag 1 BAG IV ONE (19:26)
--- NOTE | 2019-12-13 20:01 | CR ---
INDICATION: fever 105 x yesterday, total body numbness TECHNIQUE: Chest 2 views. COMPARISON: None. FINDINGS: Cardiovascular and mediastinum: Heart size and vasculature are normal in caliber and appearance. Mediastinum is within normal limits. Lungs and pleural spaces: Lungs are clear. No sign of infiltrate or mass. No sign of pleural effusion. No pneumothorax. Bones and soft tissues: No significant findings. IMPRESSION: Unremarkable chest. Dictated by: Alphonso Lieberman MD @ 12/13/2019 20:00:06 (Electronically Signed)
--- NOTE | 2019-12-13 20:24 | CT ---
HISTORY: Right flank pain. TECHNIQUE: Noncontrast CT of the abdomen and pelvis. COMPARISON: No prior. FINDINGS: The patient is status postcholecystectomy. The liver is not optimally evaluated without contrast though no definite focal liver parenchymal abnormality is seen. The spleen and adrenal glands are normal. No focal pancreatic abnormality. - There are bilateral intrarenal calculi. There is mild dilatation of the right renal pelvis and also the right ureter. No stone is seen within the right ureter. There is no left-sided hydronephrosis. No left ureteral calculus. There is a subtle punctate 2 mm calculus along the posterior aspect of the urinary bladder on image #133 of series 201. Urinary bladder is only mildly distended. - No small bowel obstruction. No appendicitis. No diverticulitis. Trace amount of pelvic free fluid. No free air. No abdominal aortic aneurysm. - Mild sclerosis about the sacroiliac joints anteroinferiorly. Consider changes of sacroiliitis. No fracture. - No consolidation within lung bases nor pleural effusion. IMPRESSION: 1. Bilateral intrarenal calculi. 2. On the right, there is mild dilatation of the renal collecting system and ureter. No stone is seen within the right ureter. 3. Punctate 2 mm calculus within the posterior aspect of urinary bladder at the midline. This could have recently passed from the right ureter. 4. Changes of prior cholecystectomy. 5. No bowel obstruction, appendicitis or diverticulitis. 6. Mild sclerosis about the anterior-inferior aspects of the sacroiliac joints. Consider subtle changes of sacroiliitis. Dictated by Eduardo Bentley MD @ 12/13/2019 8:21:48 PM Please note that all CT scans at this facility use dose modulation, iterative reconstruction, and/or weight-based dosing when appropriate to reduce radiation dose to as low as reasonably achievable. Dictated by: Eduardo Bentley MD @ 12/13/2019 20:22:09 (Electronically Signed)
[2019-12-13] MEDS: Sodium Chloride 0.9% 1,000 ML IV ONE ×4 (20:59→21:38)
--- NOTE | 2019-12-13 21:43 | PCM.PREANE ---
Preanesthetic Assessment - Anesthesia/Transfusion/Family Hx Anesthesia History: Prior Anesthesia Without Reaction Family History of Anesthesia Reaction: No Transfusion History: No Prior Transfusion(s) - Physical Assessment NPO Status Date: 12/13/19 NPO Status Time: 10:00 Vital Signs: Last Vital Signs Temp 37.3 C 12/13/19 20:05 Pulse 110 H 12/13/19 20:30 Resp 18 12/13/19 20:30 BP 90/60 12/13/19 20:30 Pulse Ox 97 12/13/19 20:30 Height: 1.65 m Weight: 54.431 kg ASA Class: 1E - Lab Values: Laboratory Last Values WBC 18.30 K/uL (4.0-11.0) H 12/13/19 21:20 RBC 4.41 M/uL (4.30-5.90) 12/13/19 21:20 Hgb 12.4 g/dL (12.0-16.0) 12/13/19 21: Hct 35.4 % (36.0-46.0) L 12/13/19 21:20 MCV 80.3 fL (80.0-98.0) 12/13/19 21:20 MCH 28.1 pg (27.0-32.0) 12/13/19 21: MCHC 35.0 g/dL (31.0-37.0) 12/13/19 21: RDW Std Deviation 49.4 fl (28.0-62.0) 12/13/19 21: RDW Coeff of [place] 17 % (11.0-15.0) H 12/13/19 21:20 Plt Count 199 K/uL (150-400) 12/13/19 21:20 MPV 9.50 fL (7.40-12.00) 12/13/19 21:20 Neut % (Auto) 85.5 % (48.0-80.0) H 12/13/19 21: Lymph % (Auto) 7.3 % (16.0-40.0) L 12/13/19 21:20 [place] % (Auto) 7.0 % (0.0-15.0) 12/13/19 21: Eos % (Auto) 0.0 % (0.0-7.0) 12/13/19 21:20 Baso % (Auto) 0.2 % (0.0-1.5) 12/13/19 21:20 Neut # (Auto) 15.7 K/uL (1.4-5.7) H 12/13/19 21:20 Lymph # (Auto) 1.3 K/uL (0.6-2.4) 12/13/19 21:20 [place] # (Auto) 1.3 K/uL (0.0-0.8) H 12/13/19 21:20 Eos # (Auto) 0.0 K/uL (0.0-0.7) 12/13/19 21:20 Baso # (Auto) 0.0 K/uL (0.0-0.1) 12/13/19 21:20 Nucleated RBC % 0.0 /100WBC 12/13/19 21:20 Nucleated RBCs # 0 K/uL 12/13/19 21:20 Lactate 0.8 mmol/L (0.20-2.00) 12/13/19 21:20 Sodium 140 mmol/L (136-145) 12/13/19 18:00 Potassium 3.4 mmol/L (3.5-5.1) L 12/13/19 18:00 Chloride 103 mmol/L (98-107) 12/13/19 18:00 Carbon Dioxide 24.1 mmol/L (21.0-32.0) 12/13/19 18:00 BUN 13 mg/dL (7.0-18.0) 12/13/19 18:00 Creatinine 1.1 mg/dL (0.6-1.0) H 12/13/19 18:00 Est Cr Clr Drug Dosing 69.52 mL/min 12/13/19 18:00 Estimated GFR (MDRD) > 60.0 ml/min 12/13/19 18:00 Glucose 123 mg/dL (74-106) H 12/13/19 18:00 Calcium 8.6 mg/dL (8.5-10.1) 12/13/19 18:00 Total Bilirubin 1.0 mg/dL (0.2-1.0) 12/13/19 18:00 AST 15 IU/L (15-37) 12/13/19 18:00 ALT 25 IU/L (14-63) 12/13/19 18:00 Alkaline Phosphatase 89 U/L (46-116) 12/13/19 18:00 Total Protein 7.5 g/dL (6.4-8.2) 12/13/19 18:00 Albumin 3.5 g/dL (3.4-5.0) 12/13/19 18:00 Globulin 4.0 g/dL (2.6-4.0) 12/13/19 18:00 Albumin/Globulin Ratio 0.9 (0.9-1.6) 12/13/19 18:00 Urine Color YELLOW 12/13/19 18:35 Urine Appearance SLT CLOUDY 12/13/19 18:35 Urine pH 6.0 (5.0-8.0) 12/13/19 18:35 Ur Specific [place] 1.010 (1.001-1.035) 12/13/19 18:35 Urine Protein 100 mg/dL (NEGATIVE) H 12/13/19 18:35 Urine Glucose (UA) NEGATIVE mg/dL (NEGATIVE) 12/13/19 18:35 Urine Ketones NEGATIVE mg/dL (NEGATIVE) 12/13/19 18:35 Urine Occult Blood SMALL (NEGATIVE) H 12/13/19 18:35 Urine Nitrite POSITIVE (NEGATIVE) H 12/13/19 18:35 Urine Bilirubin NEGATIVE (NEGATIVE) 12/13/19 18:35 Urine Urobilinogen 0.2 EU/dL (<2.0) 12/13/19 18:35 Ur Leukocyte Esterase MODERATE (NEGATIVE) H 12/13/19 18:35 Urine RBC 0-2 (0-2/HPF) 12/13/19 18:35 Urine WBC 30-40 (0-5/HPF) 12/13/19 18:35 Ur Epithelial Cells RARE (NONE-FEW) 12/13/19 18:35 Urine Bacteria 1+ (NEGATIVE) H 12/13/19 18:35 Urine HCG, Qual NEGATIVE (NEGATIVE) 12/13/19 18:35 - Allergies Allergies/Adverse Reactions: Allergies Allergy/AdvReac Type Severity Reaction Status Date / Time bee venom protein (honey bee) Allergy Swelling Verified 12/13/19 21:36 cinnamon Allergy Anaphylactic Verified 12/13/19 21:36 Shock morphine Allergy Anaphylactic Verified 12/13/19 21:36 Shock shellfish derived Allergy Anaphylactic Verified 12/13/19 21:36 Shock iv contrast Allergy Anaphylactic Uncoded 12/13/19 21:36 Shock - Acknowledgements Anesthesia Type Planned: General Anesthesia, MAC Pt an Appropriate Candidate for the Planned Anesthesia: Yes Alternatives and Risks of Anesthesia Discussed w Pt/Guardian: Yes Pt/Guardian Understands and Agrees with Anesthesia Plan: Yes PreAnesthesia Questionnaire HEENT 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: None Respiratory 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: Asthma, Other (See Below) Other Respiratory History: excercise induced asthma Gastrointestinal 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: Inflammatory Bowel Disease, Other (See Below) Other Gastrointestinal History: hx of IBS Genitourinary 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: Renal Calculus PLANT PROPAGATOR 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: , 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 Neurological 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: Migraines Psychiatric 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: Anxiety, Depression, PTSD Endocrine/Metabolic 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: None Dermatologic 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: None - Infectious Disease History Infectious Disease 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: None - Past Surgical History HEENT Surgical 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: Oral Surgery, Tonsillectomy Other HEENT Surgeries/Procedures: wisdom teeth extraction Respiratory Surgical 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: None GI Surgical 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: Cholecystectomy Female Surgical 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: None Endocrine Surgical 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: Other (See Below) Other Endocrine Surgeries/Procedures: thyroglassal duct cyst excision Neurological Surgical 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: None Dermatological Surgical 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: Other (See Below) - SUBSTANCE USE Smoking Status *Q: Never Smoker Second Hand Smoke Exposure: No Recreational Drug Use History: No - HOME MEDS Home Medications: Home Meds . [No Known Home Meds] 03/19/19 [History] - CURRENT (IN HOUSE) MEDS Current Meds: Current Medications Sodium Chloride (Normal Saline) 1,000 mls @ 999 mls/hr IV STAT ONE Stop: 12/13/19 21:58 Last Admin: 12/13/19 21:05 Dose: 999 mls/hr Sodium Chloride (Normal Saline) 1,000 mls @ 999 mls/hr IV STAT ONE Stop: 12/13/19 21:58 Last Admin: 12/13/19 21:38 Dose: 999 mls/hr Tobramycin 120 mg/ Sodium (Chloride) 103 mls @ 103 mls/hr IV STAT STA Stop: 12/13/19 21:56 Last Admin: 12/13/19 21:40 Dose: 103 mls/hr Discontinued Medications Acetaminophen (Tylenol Extra Strength) 1,000 mg PO ONETIME ONE Stop: 12/13/19 19:14 Last Admin: 12/13/19 19:35 Dose: 1,000 mg Sodium Chloride (Normal Saline) 1,000 mls @ 1,000 mls/hr IV .Bolus ONE Stop: 12/13/19 19:22 Last Admin: 12/13/19 18:41 Dose: 1,000 mls/hr Ceftriaxone Sodium/Dextrose 1 (gm/ Premix) 50 mls @ 100 mls/hr IV ONETIME ONE Stop: 12/13/19 19:55 Last Admin: 12/13/19 19:33 Dose: 100 mls/hr Tobramycin 120 mg/ Sodium (Chloride) 103 mls @ 103 mls/hr IV NOW STA Stop: 12/13/19 20:58 Gentamicin Sulfate 120 mg/ (Sodium Chloride) 53 mls @ 100 mls/hr IV ONETIME ONE Stop: 12/13/19 22:06
[2019-12-13] MEDS ORDERED: Propofol 200 MG/20 ML SDV ONE (21:49)
[2019-12-13] MEDS ORDERED: Midazolam 1 MG/ML 2 ML SDV ONE (21:50)
[2019-12-13] MEDS ORDERED: fentaNYL 100 MCG/2 ML SDV ONE (21:50)
[2019-12-13] MEDS ORDERED: Ondansetron 4 MG/2 ML SDV ONE (21:51)
[2019-12-13] MEDS ORDERED: Lidocaine 2% 5 ML SDV ONE (21:51)
[2019-12-13] MEDS ORDERED: Phenylephrine/Normal Saline 100 MCG/ML 10 ML Syringe ONE (21:51)
[2019-12-13] MEDS ORDERED: Glycopyrrolate 0.2 MG/ML SDV ONE (21:51)
[2019-12-13] MEDS ORDERED: Meropenem 1 GM in Sodium Chloride 0.9% 100 ML IV SCH (22:00)
[2019-12-13] MEDS ORDERED: Ondansetron 4 MG/2 ML SDV IVPUSH PRN (22:01)
--- NOTE | 2019-12-13 22:10 | PCM.HP.2 ---
H&P History of Present Illness - General Date of Service: 12/13/19 Admit Problem/Dx: Admission Diagnosis/Problem Admission Diagnosis/Problem Acute pyelonephritis - History of Present Illness Initial Comments - Free Text/Narative: 19 yo female with pmh of kidney stones who presents with one day history of fevers. Patient reports last night developing fevers and chills intermittently. She would take a shower and then feel a little better but then the fevers would return. Patient reports right flank pain similar to the pain she has when she is passing a kidney stone. Patient reports nausea and has not eating today. She reports fatigue and has slept most of the day.She was evaluated in the ED and noted to have leukocytosis of 18,000, pyuria and CT scan showing mild dilation of the right renal collecting system but no stone present. There were bilateral renal stones and a 2 mm stone in the posterior bladder. Patient has received IV antibiotics and IV fluids. She reports she is feeling better with an increased apatite and is feeling more awake. Body Pain Score (Numeric/FACES): 7 - Related Data Allergies/Adverse Reactions: Allergies Allergy/AdvReac Type Severity Reaction Status Date / Time bee venom protein (honey bee) Allergy Swelling Verified 12/14/19 00:32 cinnamon Allergy Anaphylactic Verified 12/14/19 00:32 Shock morphine Allergy Anaphylactic Verified 12/14/19 00:32 Shock shellfish derived Allergy Anaphylactic Verified 12/14/19 00:32 Shock iv contrast Allergy Anaphylactic Uncoded 12/14/19 00:32 Shock Home Medications: Home Meds . 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 Neurological 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: Migraines Psychiatric 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: Anxiety, Depression, PTSD Endocrine/Metabolic 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: None Dermatologic 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: None - Infectious Disease History Infectious Disease 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: None - Past Surgical History HEENT Surgical 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: Oral Surgery, Tonsillectomy Other HEENT Surgeries/Procedures: wisdom teeth extraction Respiratory Surgical 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: None GI Surgical 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: Cholecystectomy Female Surgical 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: None Endocrine Surgical 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: Other (See Below) Other Endocrine Surgeries/Procedures: thyroglassal duct cyst excision Neurological Surgical 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: None Dermatological Surgical 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: Other (See Below) Social & Family History - Family History Family Medical History: Noncontributory Cardiac: Reports: High Cholesterol, Hypertension, DC OBGYN: Reports: Neurological: Reports: CVA Psychiatric: Reports: Anxiety, Bipolar Endocrine/Metabolic: Reports: Diabetes, type II Oncologic: Reports: Cervix, Colon, Lung - Tobacco Use Smoking Status *Q: Never Smoker Second Hand Smoke Exposure: No - Caffeine Use Caffeine Use: Reports: None - Recreational Drug Use Recreational Drug Use: No H&P Review of Systems - Review of Systems: Review Of Systems: Comprehensive ROS is negative, except as noted in HPI. Exam - Exam Exam: See Below - Vital Signs Vital Signs: Last Vital Signs Temp 37.3 C 12/13/19 20:05 Pulse 101 H 12/13/19 21:45 Resp 17 12/13/19 21:45 BP 108/59 L 12/13/19 21:45 Pulse Ox 97 12/13/19 21:45 Weight: 54.431 kg - Exam General: Alert, Oriented HEENT: Mucosa Moist & [place] Neck: Supple Lungs: Clear to Auscultation, Normal Respiratory Effort Cardiovascular: Regular Rate, Regular Rhythm GI/Abdominal Exam: Normal Bowel Sounds, Soft, Non-Tender Back Exam: CVA Tenderness (R) Extremities: Non-Tender, No Pedal Edema Skin: Warm, Dry, Intact - Patient Data Lab Results Last 24 hrs: Laboratory Results - last 24 hr 12/13/19 12/13/19 12/13/19 Range/Units 18:00 18:00 18:35 WBC 18.23 H (4.0-11.0) K/uL RBC 4.88 (4.30-5.90) M/uL Hgb 13.6 (12.0-16.0) g/dL Hct 39.0 (36.0-46.0) % MCV 79.9 L (80.0-98.0) fL MCH 27.9 (27.0-32.0) pg MCHC 34.9 (31.0-37.0) g/dL RDW Std Deviation 48.7 (28.0-62.0) fl RDW Coeff of [place] 17 H (11.0-15.0) % Plt Count 227 (150-400) K/uL MPV 9.50 (7.40-12.00) fL Neut % (Auto) 85.2 H (48.0-80.0) % Lymph % (Auto) 6.5 L (16.0-40.0) % [place] % (Auto) 8.2 (0.0-15.0) % Eos % (Auto) 0.0 (0.0-7.0) % Baso % (Auto) 0.1 (0.0-1.5) % Neut # (Auto) 15.5 H (1.4-5.7) K/uL Lymph # (Auto) 1.2 (0.6-2.4) K/uL [place] # (Auto) 1.5 H (0.0-0.8) K/uL Eos # (Auto) 0.0 (0.0-0.7) K/uL Baso # (Auto) 0.0 (0.0-0.1) K/uL Nucleated RBC % 0.0 /100WBC Nucleated RBCs # 0 K/uL Lactate (0.20-2.00) mmol/L Sodium 140 (136-145) mmol/L Potassium 3.4 L (3.5-5.1) mmol/L Chloride 103 (98-107) mmol/L Carbon Dioxide 24.1 (21.0-32.0) mmol/L BUN 13 (7.0-18.0) mg/dL Creatinine 1.1 H (0.6-1.0) mg/dL Est Cr Clr Drug Dosing 69.52 mL/min Estimated GFR (MDRD) > 60.0 ml/min Glucose 123 H (74-106) mg/dL Calcium 8.6 (8.5-10.1) mg/dL Total Bilirubin 1.0 (0.2-1.0) mg/dL AST 15 (15-37) IU/L ALT 25 (14-63) IU/L Alkaline Phosphatase 89 (46-116) U/L Lactate Dehydrogenase (81-234) U/L Total Protein 7.5 (6.4-8.2) g/dL Albumin 3.5 (3.4-5.0) g/dL Globulin 4.0 (2.6-4.0) g/dL Albumin/Globulin Ratio 0.9 (0.9-1.6) Urine Color YELLOW Urine Appearance SLT CLOUDY Urine pH 6.0 (5.0-8.0) Ur Specific [place] 1.010 (1.001-1.035) Urine Protein 100 H (NEGATIVE) mg/dL Urine Glucose (UA) NEGATIVE (NEGATIVE) mg/dL Urine Ketones NEGATIVE (NEGATIVE) mg/dL Urine Occult Blood SMALL H (NEGATIVE) Urine Nitrite POSITIVE H (NEGATIVE) Urine Bilirubin NEGATIVE (NEGATIVE) Urine Urobilinogen 0.2 (<2.0) EU/dL Ur Leukocyte Esterase MODERATE H (NEGATIVE) Urine RBC 0-2 (0-2/HPF) Urine WBC 30-40 (0-5/HPF) Ur Epithelial Cells RARE (NONE-FEW) Urine Bacteria 1+ H (NEGATIVE) Urine HCG, Qual (NEGATIVE) 12/13/19 12/13/19 12/13/19 Range/Units 18:35 18:38 21:20 WBC (4.0-11.0) K/uL RBC (4.30-5.90) M/uL Hgb (12.0-16.0) g/dL Hct (36.0-46.0) % MCV (80.0-98.0) fL MCH (27.0-32.0) pg MCHC (31.0-37.0) g/dL RDW Std Deviation (28.0-62.0) fl RDW Coeff of [place] (11.0-15.0) % Plt Count (150-400) K/uL MPV (7.40-12.00) fL Neut % (Auto) (48.0-80.0) % Lymph % (Auto) (16.0-40.0) % [place] % (Auto) (0.0-15.0) % Eos % (Auto) (0.0-7.0) % Baso % (Auto) (0.0-1.5) % Neut # (Auto) (1.4-5.7) K/uL Lymph # (Auto) (0.6-2.4) K/uL [place] # (Auto) (0.0-0.8) K/uL Eos # (Auto) (0.0-0.7) K/uL Baso # (Auto) (0.0-0.1) K/uL Nucleated RBC % /100WBC Nucleated RBCs # K/uL Lactate 1.3 0.8 (0.20-2.00) mmol/L Sodium (136-145) mmol/L Potassium (3.5-5.1) mmol/L Chloride (98-107) mmol/L Carbon Dioxide (21.0-32.0) mmol/L BUN (7.0-18.0) mg/dL Creatinine (0.6-1.0) mg/dL Est Cr Clr Drug Dosing mL/min Estimated GFR (MDRD) ml/min Glucose (74-106) mg/dL Calcium (8.5-10.1) mg/dL Total Bilirubin (0.2-1.0) mg/dL AST (15-37) IU/L ALT (14-63) IU/L Alkaline Phosphatase (46-116) U/L Lactate Dehydrogenase (81-234) U/L Total Protein (6.4-8.2) g/dL Albumin (3.4-5.0) g/dL Globulin (2.6-4.0) g/dL Albumin/Globulin Ratio (0.9-1.6) Urine Color Urine Appearance Urine pH (5.0-8.0) Ur Specific [place] (1.001-1.035) Urine Protein (NEGATIVE) mg/dL Urine Glucose (UA) (NEGATIVE) mg/dL Urine Ketones (NEGATIVE) mg/dL Urine Occult Blood (NEGATIVE) Urine Nitrite (NEGATIVE) Urine Bilirubin (NEGATIVE) Urine Urobilinogen (<2.0) EU/dL Ur Leukocyte Esterase (NEGATIVE) Urine RBC (0-2/HPF) Urine WBC (0-5/HPF) Ur Epithelial Cells (NONE-FEW) Urine Bacteria (NEGATIVE) Urine HCG, Qual NEGATIVE (NEGATIVE) 12/13/19 12/13/19 Range/Units 21:20 21:20 WBC 18.30 H (4.0-11.0) K/uL RBC 4.41 (4.30-5.90) M/uL Hgb 12.4 (12.0-16.0) g/dL Hct 35.4 L (36.0-46.0) % MCV 80.3 (80.0-98.0) fL MCH 28.1 (27.0-32.0) pg MCHC 35.0 (31.0-37.0) g/dL RDW Std Deviation 49.4 (28.0-62.0) fl RDW Coeff of [place] 17 H (11.0-15.0) % Plt Count 199 (150-400) K/uL MPV 9.50 (7.40-12.00) fL Neut % (Auto) 85.5 H (48.0-80.0) % Lymph % (Auto) 7.3 L (16.0-40.0) % [place] % (Auto) 7.0 (0.0-15.0) % Eos % (Auto) 0.0 (0.0-7.0) % Baso % (Auto) 0.2 (0.0-1.5) % Neut # (Auto) 15.7 H (1.4-5.7) K/uL Lymph # (Auto) 1.3 (0.6-2.4) K/uL [place] # (Auto) 1.3 H (0.0-0.8) K/uL Eos # (Auto) 0.0 (0.0-0.7) K/uL Baso # (Auto) 0.0 (0.0-0.1) K/uL Nucleated RBC % 0.0 /100WBC Nucleated RBCs # 0 K/uL Lactate (0.20-2.00) mmol/L Sodium (136-145) mmol/L Potassium (3.5-5.1) mmol/L Chloride (98-107) mmol/L Carbon Dioxide (21.0-32.0) mmol/L BUN (7.0-18.0) mg/dL Creatinine (0.6-1.0) mg/dL Est Cr Clr Drug Dosing mL/min Estimated GFR (MDRD) ml/min Glucose (74-106) mg/dL Calcium (8.5-10.1) mg/dL Total Bilirubin (0.2-1.0) mg/dL AST (15-37) IU/L ALT (14-63) IU/L Alkaline Phosphatase (46-116) U/L Lactate Dehydrogenase 169 (81-234) U/L Total Protein (6.4-8.2) g/dL Albumin (3.4-5.0) g/dL Globulin (2.6-4.0) g/dL Albumin/Globulin Ratio (0.9-1.6) Urine Color Urine Appearance Urine pH (5.0-8.0) Ur Specific [place] (1.001-1.035) Urine Protein (NEGATIVE) mg/dL Urine Glucose (UA) (NEGATIVE) mg/dL Urine Ketones (NEGATIVE) mg/dL Urine Occult Blood (NEGATIVE) Urine Nitrite (NEGATIVE) Urine Bilirubin (NEGATIVE) Urine Urobilinogen (<2.0) EU/dL Ur Leukocyte Esterase (NEGATIVE) Urine RBC (0-2/HPF) Urine WBC (0-5/HPF) Ur Epithelial Cells (NONE-FEW) Urine Bacteria (NEGATIVE) Urine HCG, Qual (NEGATIVE) Result Diagrams: 12/14/19 06:25 12/14/19 06:25 [place]y Results Last 24 hrs: Microbiology 12/13/19 17:25 Influenza Type A Antigen Screen - Final Nasopharyngeal Swab NEGATIVE INFLUENZA A VIRUS AG REFERENCE RANGE: NEGATIVE Influenza Type B Antigen Screen - Final NEGATIVE INFLUENZA B VIRUS AG REFERENCE RANGE: NEGATIVE 12/13/19 17:25 Group A Streptococcus Rapid Screen - Final Throat NEGATIVE STREP A SCREEN REFERENCE RANGE: NEGATIVE Sepsis Event Note - Evaluation Sepsis Screening Result: No Definite Risk - Focused Exam Vital Signs: Vital Signs Temp Temp Temp Pulse Resp BP Pulse Ox 12/13/19 21:45 101 H 17 108/59 L 97 12/13/19 20:30 110 H 18 90/60 97 12/13/19 20:05 37.3 C 12/13/19 20:00 37.3 C 120 H 18 90/48 L 97 12/13/19 19:38 107 H 19 105/65 97 12/13/19 19:35 38.8 C H 12/13/19 18:42 112 H 20 111/67 97 12/13/19 18:32 38.8 C H 12/13/19 17:20 37.7 C 130 H 22 H 102/52 L 97 Date Exam was Performed: 12/14/19 Time Exam was Performed: 07:51 Problem List Initiated/Reviewed/Updated: Yes Orders Last 24hrs: Active Orders 24 hr Category Date Time Status Patient Status [ADT] Routine ADT 12/13/19 22:01 Ordered Antiembolic Devices [RC] PER UNIT ROUTINE Care 12/13/19 22:02 Ordered Oxygen Therapy [RC] PRN Care 12/13/19 22:01 Ordered Up ad Flaca [RC] ASDIRECTED Care 12/13/19 22:01 Ordered VTE/DVT Education [RC] PER UNIT ROUTINE Care 12/13/19 22:01 Ordered Vital Signs [RC] Q1HR Care 12/13/19 22:01 Ordered BASIC METABOLIC PANEL,BMP [CHEM] AM Lab 12/14/19 05:11 Ordered CBC WITH AUTO DIFF [HEME] AM Lab 12/14/19 05:11 Ordered CULTURE BLOOD [BC] Stat Lab 12/13/19 18:38 Received CULTURE BLOOD [BC] Stat Lab 12/13/19 21:12 Received CULTURE STREP A CONFIRMATION [RM] Stat Lab 12/13/19 17:25 Results CULTURE URINE [RM] Stat Lab 12/13/19 18:35 Received STREP SCRN A RAPID W CULT CONF [RM] Stat Lab 12/13/19 17:25 Results Meropenem [Merrem] 1 gm Med 12/13/19 22:00 Ordered Sodium Chloride 0.9% [Normal Saline] 100 ml IV Q8H Ondansetron [Zofran] Med 12/13/19 22:01 Ordered 4 mg IVPUSH Q4H PRN Pharmacy to Dose - Vancomycin Med 12/13/19 22:00 Ordered 1 dose .XX ASDIRECTED Sodium Chloride 0.9% @ 125 MLS/HR (1000ml) Med 12/13/19 22:15 Ordered Sodium Chloride 0.9% [Normal Saline] 1,000 ml IV ASDIRECTED Blood Culture x2 Reflex Set [OM.PC] Stat Oth 12/13/19 20:59 Ordered Sequential Compression Device [OM.PC] Per Unit Routine Oth 12/13/19 22:01 Ordered Resuscitation Status Routine Resus Stat 12/13/19 22:01 Ordered Medication Orders Meropenem 1 gm/ Sodium (Chloride) 100 mls @ 200 mls/hr IV Q8H JAZ Vancomycin HCl (Pharmacy To Dose - Vancomycin) 1 dose .XX ASDIRECTED [facility] Assessment/Plan Comment:: 19 yo female admitted for sepsis from right pyelonephritis likely from a passing stone. There is a possibility of urinary obstruction still so Dr. Heart plans on placing a stent. We will cover with broad spectrum antibiotics and await cultures. Patient appears to be responding to IV fluid resuscitation with a normal lactic acid. She reports her blood pressure usually runs lower.
--- NOTE | 2019-12-13 23:19 | PCM.POSTAN ---
POST ANESTHESIA ASSESSMENT - MENTAL STATUS Mental Status: Alert - VITAL SIGNS Vital Signs: Last Vital Signs Temp 36.6 C 12/13/19 22:45 Pulse 80 12/13/19 23:15 Resp 19 12/13/19 23:15 BP 97/56 L 12/13/19 23:15 Pulse Ox 98 12/13/19 23:15 - RESPIRATORY Respiratory Status: Respiratory Rate WNL - CARDIOVASCULAR CV Status: Pulse Rate WNL - GASTROINTESTINAL GI Status: No Symptoms - POST OP HYDRATION Hydration Status: Adequate & Stable
--- NOTE | 2019-12-13 23:37 | OR ---
SURGEON: Guerda Heart M.D. DATE OF PROCEDURE: 12/13/2019 PREOPERATIVE DIAGNOSES: Right ureteral obstruction, partial, plus urinary tract infection plus urinary sepsis. POSTOPERATIVE DIAGNOSES: Right ureteral obstruction, partial, plus urinary tract infection plus urinary sepsis. OPERATION: Cystoscopy, double-J stent placement. DESCRIPTION: The patient was given adequate sedation. She was in the dorsal lithotomy position, prepped and draped with sterile drapes. Cystourethroscopy was done. The appearance of the bladder was consistent with acute bacterial cystitis. The right ureter was cannulated with a guidewire all the way up into the renal pelvis over which a 6-[place] 26 cm double-J stent was placed. Position was confirmed on fluoroscopy. The bladder was emptied, and the patient was moved to recovery room in stable condition. PLAN: She will be admitted to the hospital for IV antibiotics under the hospitalist. LESLY / GERI /[id number]
--- NOTE | 2019-12-13 23:40 | CONS ---
DATE OF CONSULTATION: DATE OF : 2000 PRIMARY CARE PHYSICIAN: Lester NORIEGA HISTORY OF PRESENT ILLNESS: 19 years old. She presented to the emergency room with right flank pain that she has had for about a day. She had history of urinary stones. She had a UA that showed pyuria. White blood count of 18,000, pulse about 100, blood pressure normal for her between 90 and 100 over 55 to [address] She had a CT scan that showed hydronephrosis, hydroureter, relatively mild on the right side. No definite stone. There was a density at the bottom of the bladder that might be a stone that she had passed. She was given 2 L of fluid in the ER. The pulse was still thready. The blood pressure is not much higher than what it was when she came in. She is just a little more alert and awake. She apparently spent the day sleeping at home. PHYSICAL EXAMINATION: GENERAL: She is alert. She is oriented. HEART: Sinus tachycardia. LUNGS: Clear. ABDOMEN: Mild tenderness over the right CVA and right lumbar region and right lower quadrant. Abdomen is soft otherwise. IMPRESSION: Right-sided ureteral obstruction, partial, plus urinary tract infection plus a clinical picture consistent with urinary sepsis. RECOMMENDATION: Even if the stone is not clearly identifiable, the safe approach is cystoscopy and double-J stent placement. That was explained to the patient and she is agreeable with it. LESLY NEVAREZ /[id number]
[2019-12-14] MEDS: Sodium Chloride 0.9% 1,000 ML IV SCH ×3 (00:20→18:11)
[2019-12-14] MEDS ORDERED: Meropenem 1 GM in Sodium Chloride 0.9% 100 ML IV SCH ×5 (01:45→02:00)
[2019-12-14] MEDS ORDERED: diphenhydrAMINE 25 MG Cap PO ONE (02:28)
[2019-12-14] MEDS: Acetaminophen 325 MG Tab PO PRN ×3 (02:39→21:49)
[2019-12-14] MEDS ORDERED: Sodium Chloride 0.9% 1,000 ML IV ONE (06:17)
--- NOTE | 2019-12-14 06:51 | PCM48HPAN ---
Post Anesthesia Note - EVALUATION WITHIN 48HRS OF ANESTHETIC Vital Signs in Normal Range: Yes Patient Participated in Evaluation: Yes Respiratory Function Stable: Yes Airway Patent: Yes Cardiovascular Function Stable: Yes Hydration Status Stable: Yes Pain Control Satisfactory: Yes Nausea and Vomiting Control Satisfactory: Yes Mental Status Recovered: Yes Vital Signs: Last Vital Signs Temp 36.9 C 12/14/19 06:00 Pulse 92 12/14/19 06:00 Resp 16 12/14/19 06:00 BP 81/42 L 12/14/19 06:00 Pulse Ox 95 12/14/19 06:00
[2019-12-14 06:55] LABS: BLOOD UREA NITROGEN,BUN 8 mg/dL (7.0-18.0); CARBON DIOXIDE,CO2 22.7 mmol/L (21.0-32.0); CHLORIDE,CL 112 mmol/L (98-107); GLUCOSE RANDOM 120 mg/dL (74-106); POTASSIUM,K 3.6 mmol/L (3.5-5.1); SODIUM,NA 145 mmol/L (136-145)
--- NOTE | 2019-12-14 07:51 | PCM.PN ---
- General Info Date of Service: 12/14/19 - Review of Systems Systems Review Comment:: patient feeling alot better today, no fevers, no back pain. - Patient Data Vitals - Most Recent: Last Vital Signs Temp 36.9 C 12/14/19 06:00 Pulse 92 12/14/19 06:00 Resp 16 12/14/19 06:00 BP 81/42 L 12/14/19 06:00 Pulse Ox 95 12/14/19 06:00 Weight - Most Recent: 54.431 kg I&O - Last 24 Hours: Intake & Output 12/13/19 12/14/19 12/14/19 22:59 06:59 14:59 Intake Total 2925 Output Total 900 Balance 2025 Lab Results Last 24 Hours: Laboratory Results - last 24 hr 12/13/19 12/13/19 12/13/19 Range/Units 18:00 18:00 18:35 WBC 18.23 H (4.0-11.0) K/uL RBC 4.88 (4.30-5.90) M/uL Hgb 13.6 (12.0-16.0) g/dL Hct 39.0 (36.0-46.0) % MCV 79.9 L (80.0-98.0) fL MCH 27.9 (27.0-32.0) pg MCHC 34.9 (31.0-37.0) g/dL RDW Std Deviation 48.7 (28.0-62.0) fl RDW Coeff of [place] 17 H (11.0-15.0) % Plt Count 227 (150-400) K/uL MPV 9.50 (7.40-12.00) fL Neut % (Auto) 85.2 H (48.0-80.0) % Lymph % (Auto) 6.5 L (16.0-40.0) % Schley % (Auto) 8.2 (0.0-15.0) % Eos % (Auto) 0.0 (0.0-7.0) % Baso % (Auto) 0.1 (0.0-1.5) % Neut # (Auto) 15.5 H (1.4-5.7) K/uL Lymph # (Auto) 1.2 (0.6-2.4) K/uL Schley # (Auto) 1.5 H (0.0-0.8) K/uL Eos # (Auto) 0.0 (0.0-0.7) K/uL Baso # (Auto) 0.0 (0.0-0.1) K/uL Nucleated RBC % 0.0 /100WBC Nucleated RBCs # 0 K/uL Lactate (0.20-2.00) mmol/L Sodium 140 (136-145) mmol/L Potassium 3.4 L (3.5-5.1) mmol/L Chloride 103 (98-107) mmol/L Carbon Dioxide 24.1 (21.0-32.0) mmol/L BUN 13 (7.0-18.0) mg/dL Creatinine 1.1 H (0.6-1.0) mg/dL Est Cr Clr Drug Dosing 69.52 mL/min Estimated GFR (MDRD) > 60.0 ml/min Glucose 123 H (74-106) mg/dL Calcium 8.6 (8.5-10.1) mg/dL Total Bilirubin 1.0 (0.2-1.0) mg/dL AST 15 (15-37) IU/L ALT 25 (14-63) IU/L Alkaline Phosphatase 89 (46-116) U/L Lactate Dehydrogenase (81-234) U/L Total Protein 7.5 (6.4-8.2) g/dL Albumin 3.5 (3.4-5.0) g/dL Globulin 4.0 (2.6-4.0) g/dL Albumin/Globulin Ratio 0.9 (0.9-1.6) Urine Color YELLOW Urine Appearance SLT CLOUDY Urine pH 6.0 (5.0-8.0) Ur Specific [place] 1.010 (1.001-1.035) Urine Protein 100 H (NEGATIVE) mg/dL Urine Glucose (UA) NEGATIVE (NEGATIVE) mg/dL Urine Ketones NEGATIVE (NEGATIVE) mg/dL Urine Occult Blood SMALL H (NEGATIVE) Urine Nitrite POSITIVE H (NEGATIVE) Urine Bilirubin NEGATIVE (NEGATIVE) Urine Urobilinogen 0.2 (<2.0) EU/dL Ur Leukocyte Esterase MODERATE H (NEGATIVE) Urine RBC 0-2 (0-2/HPF) Urine WBC 30-40 (0-5/HPF) Ur Epithelial Cells RARE (NONE-FEW) Urine Bacteria 1+ H (NEGATIVE) Urine HCG, Qual (NEGATIVE) 12/13/19 12/13/19 12/13/19 Range/Units 18:35 18:38 21:20 WBC (4.0-11.0) K/uL RBC (4.30-5.90) M/uL Hgb (12.0-16.0) g/dL Hct (36.0-46.0) % MCV (80.0-98.0) fL MCH (27.0-32.0) pg MCHC (31.0-37.0) g/dL RDW Std Deviation (28.0-62.0) fl RDW Coeff of [place] (11.0-15.0) % Plt Count (150-400) K/uL MPV (7.40-12.00) fL Neut % (Auto) (48.0-80.0) % Lymph % (Auto) (16.0-40.0) % Schley % (Auto) (0.0-15.0) % Eos % (Auto) (0.0-7.0) % Baso % (Auto) (0.0-1.5) % Neut # (Auto) (1.4-5.7) K/uL Lymph # (Auto) (0.6-2.4) K/uL Schley # (Auto) (0.0-0.8) K/uL Eos # (Auto) (0.0-0.7) K/uL Baso # (Auto) (0.0-0.1) K/uL Nucleated RBC % /100WBC Nucleated RBCs # K/uL Lactate 1.3 0.8 (0.20-2.00) mmol/L Sodium (136-145) mmol/L Potassium (3.5-5.1) mmol/L Chloride (98-107) mmol/L Carbon Dioxide (21.0-32.0) mmol/L BUN (7.0-18.0) mg/dL Creatinine (0.6-1.0) mg/dL Est Cr Clr Drug Dosing mL/min Estimated GFR (MDRD) ml/min Glucose (74-106) mg/dL Calcium (8.5-10.1) mg/dL Total Bilirubin (0.2-1.0) mg/dL AST (15-37) IU/L ALT (14-63) IU/L Alkaline Phosphatase (46-116) U/L Lactate Dehydrogenase (81-234) U/L Total Protein (6.4-8.2) g/dL Albumin (3.4-5.0) g/dL Globulin (2.6-4.0) g/dL Albumin/Globulin Ratio (0.9-1.6) Urine Color Urine Appearance Urine pH (5.0-8.0) Ur Specific [place] (1.001-1.035) Urine Protein (NEGATIVE) mg/dL Urine Glucose (UA) (NEGATIVE) mg/dL Urine Ketones (NEGATIVE) mg/dL Urine Occult Blood (NEGATIVE) Urine Nitrite (NEGATIVE) Urine Bilirubin (NEGATIVE) Urine Urobilinogen (<2.0) EU/dL Ur Leukocyte Esterase (NEGATIVE) Urine RBC (0-2/HPF) Urine WBC (0-5/HPF) Ur Epithelial Cells (NONE-FEW) Urine Bacteria (NEGATIVE) Urine HCG, Qual NEGATIVE (NEGATIVE) 12/13/19 12/13/19 12/14/19 Range/Units 21:20 21:20 06:25 WBC 18.30 H 15.47 H (4.0-11.0) K/uL RBC 4.41 4.01 L (4.30-5.90) M/uL Hgb 12.4 10.9 L (12.0-16.0) g/dL Hct 35.4 L 32.3 L (36.0-46.0) % MCV 80.3 80.5 (80.0-98.0) fL MCH 28.1 27.2 (27.0-32.0) pg MCHC 35.0 33.7 (31.0-37.0) g/dL RDW Std Deviation 49.4 50.3 (28.0-62.0) fl RDW Coeff of [place] 17 H 17 H (11.0-15.0) % Plt Count 199 181 (150-400) K/uL MPV 9.50 9.60 (7.40-12.00) fL Neut % (Auto) 85.5 H 84.0 H (48.0-80.0) % Lymph % (Auto) 7.3 L 8.2 L (16.0-40.0) % Schley % (Auto) 7.0 7.7 (0.0-15.0) % Eos % (Auto) 0.0 0.0 (0.0-7.0) % Baso % (Auto) 0.2 0.1 (0.0-1.5) % Neut # (Auto) 15.7 H 13.0 H (1.4-5.7) K/uL Lymph # (Auto) 1.3 1.3 (0.6-2.4) K/uL Schley # (Auto) 1.3 H 1.2 H (0.0-0.8) K/uL Eos # (Auto) 0.0 0.0 (0.0-0.7) K/uL Baso # (Auto) 0.0 0.0 (0.0-0.1) K/uL Nucleated RBC % 0.0 0.0 /100WBC Nucleated RBCs # 0 0 K/uL Lactate (0.20-2.00) mmol/L Sodium (136-145) mmol/L Potassium (3.5-5.1) mmol/L Chloride (98-107) mmol/L Carbon Dioxide (21.0-32.0) mmol/L BUN (7.0-18.0) mg/dL Creatinine (0.6-1.0) mg/dL Est Cr Clr Drug Dosing mL/min Estimated GFR (MDRD) ml/min Glucose (74-106) mg/dL Calcium (8.5-10.1) mg/dL Total Bilirubin (0.2-1.0) mg/dL AST (15-37) IU/L ALT (14-63) IU/L Alkaline Phosphatase (46-116) U/L Lactate Dehydrogenase 169 (81-234) U/L Total Protein (6.4-8.2) g/dL Albumin (3.4-5.0) g/dL Globulin (2.6-4.0) g/dL Albumin/Globulin Ratio (0.9-1.6) Urine Color Urine Appearance Urine pH (5.0-8.0) Ur Specific [place] (1.001-1.035) Urine Protein (NEGATIVE) mg/dL Urine Glucose (UA) (NEGATIVE) mg/dL Urine Ketones (NEGATIVE) mg/dL Urine Occult Blood (NEGATIVE) Urine Nitrite (NEGATIVE) Urine Bilirubin (NEGATIVE) Urine Urobilinogen (<2.0) EU/dL Ur Leukocyte Esterase (NEGATIVE) Urine RBC (0-2/HPF) Urine WBC (0-5/HPF) Ur Epithelial Cells (NONE-FEW) Urine Bacteria (NEGATIVE) Urine HCG, Qual (NEGATIVE) 12/14/19 12/14/19 Range/Units 06:25 06:25 WBC (4.0-11.0) K/uL RBC (4.30-5.90) M/uL Hgb (12.0-16.0) g/dL Hct (36.0-46.0) % MCV (80.0-98.0) fL MCH (27.0-32.0) pg MCHC (31.0-37.0) g/dL RDW Std Deviation (28.0-62.0) fl RDW Coeff of [place] (11.0-15.0) % Plt Count (150-400) K/uL MPV (7.40-12.00) fL Neut % (Auto) (48.0-80.0) % Lymph % (Auto) (16.0-40.0) % Schley % (Auto) (0.0-15.0) % Eos % (Auto) (0.0-7.0) % Baso % (Auto) (0.0-1.5) % Neut # (Auto) (1.4-5.7) K/uL Lymph # (Auto) (0.6-2.4) K/uL Schley # (Auto) (0.0-0.8) K/uL Eos # (Auto) (0.0-0.7) K/uL Baso # (Auto) (0.0-0.1) K/uL Nucleated RBC % /100WBC Nucleated RBCs # K/uL Lactate 0.6 (0.20-2.00) mmol/L Sodium 145 (136-145) mmol/L Potassium 3.6 (3.5-5.1) mmol/L Chloride 112 H (98-107) mmol/L Carbon Dioxide 22.7 (21.0-32.0) mmol/L BUN 8 (7.0-18.0) mg/dL Creatinine 0.8 (0.6-1.0) mg/dL Est Cr Clr Drug Dosing TNP mL/min Estimated GFR (MDRD) > 60.0 ml/min Glucose 120 H (74-106) mg/dL Calcium 7.2 L (8.5-10.1) mg/dL Total Bilirubin (0.2-1.0) mg/dL AST (15-37) IU/L ALT (14-63) IU/L Alkaline Phosphatase (46-116) U/L Lactate Dehydrogenase (81-234) U/L Total Protein (6.4-8.2) g/dL Albumin (3.4-5.0) g/dL Globulin (2.6-4.0) g/dL Albumin/Globulin Ratio (0.9-1.6) Urine Color Urine Appearance Urine pH (5.0-8.0) Ur Specific [place] (1.001-1.035) Urine Protein (NEGATIVE) mg/dL Urine Glucose (UA) (NEGATIVE) mg/dL Urine Ketones (NEGATIVE) mg/dL Urine Occult Blood (NEGATIVE) Urine Nitrite (NEGATIVE) Urine Bilirubin (NEGATIVE) Urine Urobilinogen (<2.0) EU/dL Ur Leukocyte Esterase (NEGATIVE) Urine RBC (0-2/HPF) Urine WBC (0-5/HPF) Ur Epithelial Cells (NONE-FEW) Urine Bacteria (NEGATIVE) Urine HCG, Qual (NEGATIVE) Davey Results Last 24 Hours: Microbiology 12/13/19 17:25 Influenza Type A Antigen Screen - Final Nasopharyngeal Swab NEGATIVE INFLUENZA A VIRUS AG REFERENCE RANGE: NEGATIVE Influenza Type B Antigen Screen - Final NEGATIVE INFLUENZA B VIRUS AG REFERENCE RANGE: NEGATIVE 12/13/19 17:25 Group A Streptococcus Rapid Screen - Final Throat NEGATIVE STREP A SCREEN REFERENCE RANGE: NEGATIVE Med Orders - Current: Current Medications Acetaminophen (Tylenol) 650 mg PO Q6H PRN PRN Reason: Fever Last Admin: 12/14/19 02:39 Dose: 650 mg Sodium Chloride (Normal Saline) 1,000 mls @ 125 mls/hr IV ASDIRECTED JAZ Last Admin: 12/14/19 07:47 Dose: 125 mls/hr Vancomycin HCl 0.75 gm/ Sodium (Chloride) 250 mls @ 166.667 mls/hr IV Q12H JAZ Meropenem 1 gm/ Sodium (Chloride) 100 mls @ 200 mls/hr IV Q8H JAZ Last Admin: 12/14/19 03:38 Dose: 200 mls/hr Ondansetron HCl (Zofran) 4 mg IVPUSH Q4H PRN PRN Reason: Nausea Last Admin: 12/14/19 02:10 Dose: 4 mg Vancomycin HCl (Pharmacy To Dose - Vancomycin) 1 dose .XX ASDIRECTED JAZ Discontinued Medications Acetaminophen (Tylenol Extra Strength) 1,000 mg PO ONETIME ONE Stop: 12/13/19 19:14 Last Admin: 12/13/19 19:35 Dose: 1,000 mg Diphenhydramine HCl (Benadryl) 25 mg PO ONETIME ONE Stop: 12/14/19 02:29 Last Admin: 12/14/19 02:40 Dose: 25 mg Fentanyl (Sublimaze) Confirm Administered Dose 100 mcg .ROUTE .STK-MED ONE Stop: 12/13/19 21:51 Glycopyrrolate (Robinul) Confirm Administered Dose 0.2 mg .ROUTE .STK-MED ONE Stop: 12/13/19 21:52 Sodium Chloride (Normal Saline) 1,000 mls @ 1,000 mls/hr IV .Bolus ONE Stop: 12/13/19 19:22 Last Admin: 12/13/19 18:41 Dose: 1,000 mls/hr Ceftriaxone Sodium/Dextrose 1 (gm/ Premix) 50 mls @ 100 mls/hr IV ONETIME ONE Stop: 12/13/19 19:55 Last Admin: 12/13/19 19:33 Dose: 100 mls/hr Tobramycin 120 mg/ Sodium (Chloride) 103 mls @ 103 mls/hr IV NOW STA Stop: 12/13/19 20:58 Sodium Chloride (Normal Saline) 1,000 mls @ 999 mls/hr IV STAT ONE Stop: 12/13/19 21:58 Last Admin: 12/13/19 21:05 Dose: 999 mls/hr Sodium Chloride (Normal Saline) 1,000 mls @ 999 mls/hr IV STAT ONE Stop: 12/13/19 21:58 Last Admin: 12/13/19 21:38 Dose: 999 mls/hr Tobramycin 120 mg/ Sodium (Chloride) 103 mls @ 103 mls/hr IV STAT STA Stop: 12/13/19 21:56 Last Admin: 12/13/19 21:40 Dose: 103 mls/hr Gentamicin Sulfate 120 mg/ (Sodium Chloride) 53 mls @ 100 mls/hr IV ONETIME ONE Stop: 12/13/19 22:06 Meropenem 1 gm/ Sodium (Chloride) 100 mls @ 200 mls/hr IV Q8H JAZ Last Admin: 12/14/19 07:27 Dose: Not Given Vancomycin HCl 1.5 gm/ Premix 300 mls @ 300 mls/hr IV ONETIME ONE Stop: 12/13/19 23:59 Last Admin: 12/14/19 00:48 Dose: 300 mls/hr Meropenem 1 gm/ Sodium (Chloride) 100 mls @ 200 mls/hr IV Q8H JAZ Meropenem 1 gm/ Sodium (Chloride) 100 mls @ 200 mls/hr IV Q8H JAZ Sodium Chloride (Normal Saline) 1,000 mls @ 999 mls/hr IV BOLUS ONE Stop: 12/14/19 07:17 Last Admin: 12/14/19 06:30 Dose: 999 mls/hr Lidocaine (Xylocaine-Mpf 2%) Confirm Administered Dose 5 ml .ROUTE .STK-MED ONE Stop: 12/13/19 21:52 Midazolam HCl (Versed 1 Mg/Ml) Confirm Administered Dose 2 mg .ROUTE .STK-MED ONE Stop: 12/13/19 21:51 Ondansetron HCl (Zofran) Confirm Administered Dose 4 mg .ROUTE .STK-MED ONE Stop: 12/13/19 21:52 Phenylephrine HCl (Phenylephrine In Ns 100 Mcg/Ml) Confirm Administered Dose 1 mg .ROUTE .STK-MED ONE Stop: 12/13/19 21:52 Propofol (Diprivan 20 Ml) Confirm Administered Dose 200 mg .ROUTE .STK-MED ONE Stop: 12/13/19 21:50 - Exam General: Alert, Oriented Neck: Supple Lungs: Clear to Auscultation, Normal Respiratory Effort Cardiovascular: Regular Rate, Regular Rhythm GI/Abdominal Exam: Soft, Non-Tender Extremities: Non-Tender, No Pedal Edema Skin: Warm, Dry, Intact Sepsis Event Note - Evaluation Sepsis Screening Result: No Definite Risk - Focused Exam Vital Signs: Vital Signs Temp Temp Pulse Resp BP BP Pulse Ox 12/14/19 06:00 36.9 C 92 16 81/42 L 95 12/14/19 04:30 37.6 C 101 H 16 90/55 L 98 12/14/19 03:58 37.7 C 105 H 95/57 L 12/14/19 03:30 38 C 115 H 16 110/56 L 98 12/14/19 02:45 38.0 C 120 H 15 100/52 L 98 12/14/19 02:20 38.3 C H 120 H 16 114/58 L 98 12/14/19 01:45 37.2 C 98 16 101/56 L 98 12/14/19 01:15 37.2 C 99 16 100/62 98 12/14/19 00:45 37.2 C 90 16 99/55 L 98 12/14/19 00:27 36.6 C 91 15 98/58 L 99 12/14/19 00:00 12/13/19 23:50 36.4 C 91 16 94/53 L 98 12/13/19 23:30 36.2 C 92 15 104/57 L 98 12/13/19 23:15 80 19 97/56 L 98 12/13/19 23:09 81 20 94/58 L 97 12/13/19 23:04 90 14 97/57 L 98 12/13/19 22:59 100 14 98/60 98 12/13/19 22:54 96 12 88/58 L 98 12/13/19 22:45 36.6 C 101 H 16 87/44 L 96 12/13/19 21:45 101 H 17 108/59 L 97 12/13/19 20:30 110 H 18 90/60 97 12/13/19 20:05 37.3 C 12/13/19 20:00 37.3 C 120 H 18 90/48 L 97 Pulse Ox 12/14/19 06:00 12/14/19 04:30 12/14/19 03:58 12/14/19 03:30 12/14/19 02:45 12/14/19 02:20 12/14/19 01:45 12/14/19 01:15 12/14/19 00:45 12/14/19 00:27 12/14/19 00:00 98 12/13/19 23:50 12/13/19 23:30 12/13/19 23:15 12/13/19 23:09 12/13/19 23:04 12/13/19 22:59 12/13/19 22:54 12/13/19 22:45 12/13/19 21:45 12/13/19 20:30 12/13/19 20:05 12/13/19 20:00 Date Exam was Performed: 12/14/19 Time Exam was Performed: 07:47 - Problem List Review Problem List Initiated/Reviewed/Updated: Yes - My Orders Last 24 Hours: My Active Orders 12/13/19 22:00 Pharmacy to Dose - Vancomycin 1 dose .XX ASDIRECTED 12/13/19 22:01 Patient Status [ADT] Routine Oxygen Therapy [RC] PRN Up ad Flaca [RC] ASDIRECTED VTE/DVT Education [RC] PER UNIT ROUTINE Vital Signs [RC] Q1HR Ondansetron [Zofran] 4 mg IVPUSH Q4H PRN Sequential Compression Device [OM.PC] Per Unit Routine Resuscitation Status Routine 12/13/19 22:02 Antiembolic Devices [RC] PER UNIT ROUTINE 12/13/19 22:15 Sodium Chloride 0.9% [Normal Saline] 1,000 ml IV ASDIRECTED 12/14/19 02:00 Meropenem [Merrem] 1 gm Sodium Chloride 0.9% [Normal Saline] 100 ml IV Q8H 12/14/19 02:27 Acetaminophen [Tylenol] 650 mg PO Q6H PRN 12/14/19 12:00 Vancomycin 0.75 gm Sodium Chloride 0.9% [Normal Saline] 250 ml IV Q12H - Plan Plan:: 19 yo female admitted for right pyelonephritis likely from a passing stone. Dr. Heart has placed a stent. We will continue vancomycin and meropenem. Cultures are pending. Blood pressures have been low in the 90s systolic but patient no longer appears septic.
[2019-12-14] MEDS: Meropenem Premix 1 GM in Premix Bag 1 BAG IV SCH ×2 (09:50→18:10)
--- NOTE | 2019-12-14 12:39 | CR ---
Abdomen: 2 fluoroscopic spot views of the upper abdomen were obtained utilizing C-arm device. Study shows placement of a ureteral stent. Fluoroscopy time given as 5.6 seconds. Impression: 1. Procedural study as noted above. Diagnostic code #2 This report was dictated in [place] Standard Time
[2019-12-15] MEDS: Meropenem Premix 1 GM in Premix Bag 1 BAG IV SCH ×2 (00:46→09:38)
[2019-12-15 06:15] LABS: BLOOD UREA NITROGEN,BUN 4 mg/dL (7.0-18.0); CARBON DIOXIDE,CO2 24.4 mmol/L (21.0-32.0); CHLORIDE,CL 108 mmol/L (98-107); GLUCOSE RANDOM 106 mg/dL (74-106); POTASSIUM,K 3.3 mmol/L (3.5-5.1); SODIUM,NA 142 mmol/L (136-145)
[2019-12-15] MEDS: Acetaminophen 325 MG Tab PO PRN (06:55)
[2019-12-15] MEDS: Sodium Chloride 0.9% 1,000 ML IV SCH (06:56)
[2019-12-15] MEDS ORDERED: Levofloxacin 500 MG Tab PO ONE (11:10)
--- NOTE | 2019-12-15 11:11 | PCM.DCSUM1 ---
Discharge Summary - Hospital Course Brief History: 19 yo female with pmh of kidney stones who presents with one day history of fevers. Patient reports last night developing fevers and chills intermittently. She would take a shower and then feel a little better but then the fevers would return. Patient reports right flank pain similar to the pain she has when she is passing a kidney stone. Patient reports nausea and has not eating today. She reports fatigue and has slept most of the day.She was evaluated in the ED and noted to have leukocytosis of 18,000, pyuria and CT scan showing mild dilation of the right renal collecting system but no stone present. There were bilateral renal stones and a 2 mm stone in the posterior bladder. Patient has received IV antibiotics and IV fluids. She reports she is feeling better with an increased apatite and is feeling more awake. Diagnosis: Stroke: No - Discharge Data Discharge Date: 12/15/19 Discharge Disposition: Home, Self-Care 01 Condition: Good - Referral to Home Health Primary Care Physician: PCP Not In Area - Patient Instructions Diet: Regular Diet as Tolerated Activity: As Tolerated, No Strenuous Activities Showering/Bathing: May Shower Notify Provider of: Fever, Increased Pain, Swelling and Redness, Drainage, Nausea and/or Vomiting - Discharge Plan *PRESCRIPTION DRUG MONITORING PROGRAM REVIEWED*: Not Applicable *COPY OF PRESCRIPTION DRUG MONITORING REPORT IN PATIENT MONA: Not Applicable Prescriptions/Med Rec: Fluconazole [Diflucan] 150 mg PO Q72H PRN #2 tablet PRN Reason: yeast infection levoFLOXacin [Levaquin] 750 mg PO DAILY #10 tab Home Medications: Home Meds Acetaminophen [Tylenol] 650 mg PO Q6H PRN tablet 12/15/19 [Rx] Fluconazole [Diflucan] 150 mg PO Q72H PRN #2 tablet 12/15/19 [Rx] levoFLOXacin [Levaquin] 750 mg PO DAILY #10 tab 12/15/19 [Rx] Oxygen Therapy Mode: Room Air Patient Handouts: Pyelonephritis, Adult, [id number], Fluconazole tablets, Levofloxacin tablets Referrals: Guerda Heart MD [Physician] - 12/22/19 3:15 pm - Discharge Summary/Plan Comment DC Time >30 min.: No Discharge Summary/Plan Comment: Admitting Diagnoses: Pyelonephritis with obstructing stone Discharge Diagnoses: Pyelonephritis with obstructing stone- E coli Ureteral stent placement Regina was admitted with fevers, flank pain and found to have obstructing renal stone with pyeloinephritis. She was placed on Meropenem and Vancomycin. Dr Heart was consulted and brought patient to the OR for stent placement. She is feeling significantly better today and is requesting discharge. She feels like she may have passed stone, as she has some mid abdominal, lower abdominal pain and then it was gone and she has felt artis since. She is eating and drinking well. Leukocytosis imprved to 11,000 today. BC returned negative. UC returned valdez sensitive E Coli. I spoke with Dr Heart, he requested her to be seen next Sunday for stent removal. She will be placed on Levaquin 750 mg x 10 days for pyelonephritis. She is to keep up with PO fluids. Counseled to return to ED or clinic if concerns with pain or fevers return. S - General Info Date of Service: 12/15/19 Admission Dx/Problem (Free Text: Admission Diagnosis/Problem Admission Diagnosis/Problem Acute pyelonephritis Subjective Update: Feeling well this morning, no chest pain or SOB. NO abdominal or flank pain. Asking to go home. She has two children at home that she needs to help her significant other out with Functional Status: Reports: Pain Controlled, Tolerating Diet, Ambulating - Review of Systems General: Reports: No Symptoms HEENT: Reports: No Symptoms. Denies: Headaches, Sore Throat Pulmonary: Denies: Shortness of Breath Cardiovascular: Reports: No Symptoms. Denies: Chest Pain Gastrointestinal: Reports: No Symptoms. Denies: Abdominal Pain, Nausea, Vomiting Genitourinary: Reports: No Symptoms. Denies: Dysuria, Frequency Neurological: Reports: No Symptoms Psychiatric: Reports: No Symptoms - Patient Data Vitals - Most Recent: Last Vital Signs Temp 99.3 F 12/15/19 07:43 Pulse 93 12/15/19 07:43 Resp 16 12/15/19 04:00 BP 98/58 L 12/15/19 07:43 Pulse Ox 95 12/15/19 07:43 Weight - Most Recent: 54.431 kg I&O - Last 24 hours: Intake & Output 12/14/19 12/15/19 12/15/19 22:59 06:59 14:59 Intake Total 1544 50 Output Total 2950 Balance -1406 50 Lab Results - Last 24 hrs: Laboratory Results - last 24 hr 12/15/19 12/15/19 Range/Units 05:18 05:18 WBC 11.85 H (4.0-11.0) K/uL RBC 3.91 L (4.30-5.90) M/uL Hgb 10.9 L (12.0-16.0) g/dL Hct 30.8 L (36.0-46.0) % MCV 78.8 L (80.0-98.0) fL MCH 27.9 (27.0-32.0) pg MCHC 35.4 (31.0-37.0) g/dL RDW Std Deviation 46.5 (28.0-62.0) fl RDW Coeff of [place] 16 H (11.0-15.0) % Plt Count 194 (150-400) K/uL MPV 10.10 (7.40-12.00) fL Add Manual Diff YES Neutrophils % (Manual) 84 H (48.0-80.0) % Band Neutrophils % 5 % Lymphocytes % (Manual) 7 L (16.0-40.0) % Monocytes % (Manual) 4 (0.0-15.0) % Absolute Seg Neuts 10.0 H (1.4-5.7) Band Neutrophils # 0.6 Lymphocytes # (Manual) 0.8 (0.6-2.4) Monocytes # (Manual) 0.5 (0.0-0.8) Sodium 142 (136-145) mmol/L Potassium 3.3 L (3.5-5.1) mmol/L Chloride 108 H (98-107) mmol/L Carbon Dioxide 24.4 (21.0-32.0) mmol/L BUN 4 L (7.0-18.0) mg/dL Creatinine 0.6 (0.6-1.0) mg/dL Est Cr Clr Drug Dosing TNP Estimated GFR (MDRD) > 60.0 ml/min Glucose 106 (74-106) mg/dL Calcium 7.7 L (8.5-10.1) mg/dL DIAN Results - Last 24 hrs: Microbiology 12/13/19 17:25 Quick Strep Confirmation Culture - Final Throat NO GROUP A STREP ISOLATED REFERENCE RANGE: NEGATIVE Group A Streptococcus Rapid Screen - Final NEGATIVE STREP A SCREEN REFERENCE RANGE: NEGATIVE 12/13/19 18:35 Urine Culture - Final Urine, Clean Catch Escherichia Coli 12/13/19 21:12 Aerobic Blood Culture - Preliminary Blood - Venous - Lab Draw NO GROWTH AFTER 1 DAY Anaerobic Blood Culture - Preliminary NO GROWTH AFTER 1 DAY 12/13/19 18:38 Aerobic Blood Culture - Preliminary Blood - Venous NO GROWTH AFTER 1 DAY Anaerobic Blood Culture - Preliminary NO GROWTH AFTER 1 DAY Med Orders - Current: Current Medications Acetaminophen (Tylenol) 650 mg PO Q6H PRN PRN Reason: Fever Last Admin: 12/15/19 06:55 Dose: 650 mg Sodium Chloride (Normal Saline) 1,000 mls @ 125 mls/hr IV ASDIRECTED JAZ Last Admin: 12/15/19 06:56 Dose: 125 mls/hr Meropenem/Sodium Chloride 1 gm (/ Premix) 50 mls @ 100 mls/hr IV Q8H JAZ Last Admin: 12/15/19 09:38 Dose: 100 mls/hr Levofloxacin (Levaquin) 750 mg PO ONETIME ONE Stop: 12/15/19 11:11 Ondansetron HCl (Zofran) 4 mg IVPUSH Q4H PRN PRN Reason: Nausea Last Admin: 12/14/19 02:10 Dose: 4 mg Vancomycin HCl (Pharmacy To Dose - Vancomycin) 1 dose .XX ASDIRECTED [facility] Discontinued Medications Acetaminophen (Tylenol Extra Strength) 1,000 mg PO ONETIME ONE Stop: 12/13/19 19:14 Last Admin: 12/13/19 19:35 Dose: 1,000 mg Diphenhydramine HCl (Benadryl) 25 mg PO ONETIME ONE Stop: 12/14/19 02:29 Last Admin: 12/14/19 02:40 Dose: 25 mg Fentanyl (Sublimaze) Confirm Administered Dose 100 mcg .ROUTE .STK-MED ONE Stop: 12/13/19 21:51 Glycopyrrolate (Robinul) Confirm Administered Dose 0.2 mg .ROUTE .STK-MED ONE Stop: 12/13/19 21:52 Sodium Chloride (Normal Saline) 1,000 mls @ 1,000 mls/hr IV .Bolus ONE Stop: 12/13/19 19:22 Last Admin: 12/13/19 18:41 Dose: 1,000 mls/hr Ceftriaxone Sodium/Dextrose 1 (gm/ Premix) 50 mls @ 100 mls/hr IV ONETIME ONE Stop: 12/13/19 19:55 Last Admin: 12/13/19 19:33 Dose: 100 mls/hr Tobramycin 120 mg/ Sodium (Chloride) 103 mls @ 103 mls/hr IV NOW STA Stop: 12/13/19 20:58 Sodium Chloride (Normal Saline) 1,000 mls @ 999 mls/hr IV STAT ONE Stop: 12/13/19 21:58 Last Admin: 12/13/19 21:05 Dose: 999 mls/hr Sodium Chloride (Normal Saline) 1,000 mls @ 999 mls/hr IV STAT ONE Stop: 12/13/19 21:58 Last Admin: 12/13/19 21:38 Dose: 999 mls/hr Tobramycin 120 mg/ Sodium (Chloride) 103 mls @ 103 mls/hr IV STAT STA Stop: 12/13/19 21:56 Last Admin: 12/13/19 21:40 Dose: 103 mls/hr Gentamicin Sulfate 120 mg/ (Sodium Chloride) 53 mls @ 100 mls/hr IV ONETIME ONE Stop: 12/13/19 22:06 Meropenem 1 gm/ Sodium (Chloride) 100 mls @ 200 mls/hr IV Q8H [facility] Last Admin: 12/14/19 07:27 Dose: Not Given Vancomycin HCl 1.5 gm/ Premix 300 mls @ 300 mls/hr IV ONETIME ONE Stop: 12/13/19 23:59 Last Admin: 12/14/19 00:48 Dose: 300 mls/hr Vancomycin HCl 0.75 gm/ Sodium (Chloride) 250 mls @ 166.667 mls/hr IV Q12H [facility] Last Admin: 12/14/19 23:11 Dose: 166.667 mls/hr Meropenem 1 gm/ Sodium (Chloride) 100 mls @ 200 mls/hr IV Q8H [facility] Meropenem 1 gm/ Sodium (Chloride) 100 mls @ 200 mls/hr IV Q8H [facility] Last Admin: 12/14/19 03:38 Dose: 200 mls/hr Meropenem 1 gm/ Sodium (Chloride) 100 mls @ 200 mls/hr IV Q8H [facility] Sodium Chloride (Normal Saline) 1,000 mls @ 999 mls/hr IV BOLUS ONE Stop: 12/14/19 07:17 Last Admin: 12/14/19 06:30 Dose: 999 mls/hr Lidocaine (Xylocaine-Mpf 2%) Confirm Administered Dose 5 ml .ROUTE .STK-MED ONE Stop: 12/13/19 21:52 Midazolam HCl (Versed 1 Mg/Ml) Confirm Administered Dose 2 mg .ROUTE .STK-MED ONE Stop: 12/13/19 21:51 Ondansetron HCl (Zofran) Confirm Administered Dose 4 mg .ROUTE .STK-MED ONE Stop: 12/13/19 21:52 Phenylephrine HCl (Phenylephrine In Ns 100 Mcg/Ml) Confirm Administered Dose 1 mg .ROUTE .STK-MED ONE Stop: 12/13/19 21:52 Propofol (Diprivan 20 Ml) Confirm Administered Dose 200 mg .ROUTE .STK-MED ONE Stop: 12/13/19 21:50 - Exam General: Reports: Alert, Oriented Lungs: Reports: Clear to Auscultation, Normal Respiratory Effort Cardiovascular: Reports: Regular Rate, Regular Rhythm GI/Abdominal Exam: Normal Bowel Sounds, Soft Back Exam: Reports: Normal Inspection, Full Range of Motion. Denies: CVA Tenderness (L), CVA Tenderness (R) Psy/Mental Status: Reports: Alert, Normal Affect, Normal Mood
== END 2019-12-15 11:43 | disposition home or self-care (01) | DRG 854 ==
LOC: MW.ED 17:07 → MW.MS 22:01
PROVIDERS: ADMIT Internal Medicine; ATTEND Internal Medicine
PROC: 0T768DZ Dilation of Right Ureter with Intraluminal Device, Via Natural or Artificial Opening Endoscopic (ICD-10-PCS; principal; 2019-12-13)
DX: A41.9 Sepsis, unspecified organism (principal); N10 Acute pyelonephritis; J45.909 Unspecified asthma, uncomplicated; G43.909 Migraine, unspecified, not intractable, without status migrainosus; F41.9 Anxiety disorder, unspecified; F32.9 Major depressive disorder, single episode, unspecified; N20.0 Calculus of kidney; N21.0 Calculus in bladder; B96.20 Unspecified Escherichia coli [E. coli] as the cause of diseases classified elsewhere; Z88.5 Allergy status to narcotic agent; Z91.030 Bee allergy status; Z91.013 Allergy to seafood; Z90.89 Acquired absence of other organs; Z90.49 Acquired absence of other specified parts of digestive tract; Z91.041 Radiographic dye allergy status
CPT/HCPCS: 36415; 71046; 71046-26; 74176; 74176-26; 76000; 76000-26; 80048; 80053; 81001; 81025; 83605; 83615; 85025; 87040; 87081; 87086; 87088; 87186; 87804; 87880-QW; 96361; 96365; 96367; 99284; 99285-25; A9270-GY; C1769; C2617; J0696; J2001; J2185; J2250; J2370; J2405; J2704; J3010; J3260; J3370; J3490; J7030; J7050

== ENCOUNTER 2021-03-19 00:35 | Inpatient (IN) | payer MEDICAID ==
[2021-03-19] MEDS ORDERED: Methylergonovine 0.2 MG/1 ML Amp IM PRN (01:05)
[2021-03-19] MEDS ORDERED: Lidocaine 1% 50 ML MDV INJECT PRN (01:05)
[2021-03-19] MEDS ORDERED: Ampicillin 2 GM in Sodium Chloride 0.9% 100 ML IV ONE (01:05)
[2021-03-19] MEDS ORDERED: Sodium Chloride 0.9% 10 ML SDV IV PRN (01:05)
[2021-03-19] MEDS ORDERED: Tranexamic Acid 1,000 MG in Sodium Chloride 0.9% 100 ML IV PRN (01:05)
[2021-03-19] MEDS ORDERED: Sodium Chloride 0.9% 10 ML Syringe FLUSH PRN (01:05)
[2021-03-19] MEDS ORDERED: Sodium Chloride 0.9% 2.5 ML Syringe FLUSH PRN (01:05)
[2021-03-19] MEDS ORDERED: Ondansetron 4 MG/2 ML SDV IVPUSH PRN (01:05)
[2021-03-19] MEDS ORDERED: Butorphanol 1 MG/ML SDV IVPUSH PRN (01:05)
[2021-03-19] MEDS ORDERED: Nalbuphine 10 MG/1 ML Vial IVPUSH PRN (01:05)
[2021-03-19] MEDS ORDERED: Water For Irrigation,Sterile 1,000 ML Container IRR PRN (01:05)
[2021-03-19] MEDS ORDERED: Misoprostol 200 MCG Tab PO PRN (01:05)
[2021-03-19] MEDS ORDERED: Carboprost Tromethamine 250 MCG/1 ML Amp IM PRN (01:05)
--- NOTE | 2021-03-19 01:10 | PCM.LDHP ---
L&D History of Present Illness - General Date of Service: 03/19/21 Admit Problem/Dx: Admission Diagnosis/Problem Admission Diagnosis/Problem 03/19/21 01:02 Cliff is a 21 yo 0-2-2 at 37+1 weeks (LILLI(LMP) 04/08/2021) that presents today with C/O strong spontaneous contractions since 4 pm. Reports FM. Denies vaginal bleeding, LOF, or any other problems at this time. O pos, RI, GBS pos. Ax: Shellfish, morphine, cinnamon, bees. Plan for ampicillin prophylaxis in labor. Pertinent medical hx: bilateral kidney stones, migraines, retained urethral stent, EI asthma. Source of Information: Patient History Limitations: Reports: No Limitations - History of Present Illness Location, : Reports: Abdomen Quality: Reports: Sharp Severity: Moderate Pain Score: 6 Improves with: Reports: None Worsens with: Reports: None Associated Symptoms: Reports: N - Related Data Allergies/Adverse Reactions: Allergies Allergy/AdvReac Type Severity Reaction Status Date / Time bee venom protein (honey bee) Allergy Swelling Verified 02/27/21 22:33 cinnamon Allergy Anaphylactic Verified 02/27/21 22:33 Shock morphine Allergy Anaphylactic Verified 02/27/21 22:33 Shock shellfish derived Allergy Anaphylactic Verified 02/27/21 22:33 Shock iv contrast Allergy Anaphylactic Uncoded 12/14/19 00:32 Shock Home Medications: Home Meds Acetaminophen [Tylenol] 500 mg PO Q6H PRN 02/27/21 [History] Past Medical History HEENT 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: None Cardiovascular 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: None Respiratory 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: Asthma, Other (See Below) Other Respiratory History: excercise induced asthma Gastrointestinal 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: Inflammatory Bowel Disease, Other (See Below) Other Gastrointestinal History: hx of IBS Genitourinary 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: Renal Calculus 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: , 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 : 5 Para: 2 LMP (Approximate): Musculoskeletal 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: None Neurological 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: Migraines Psychiatric 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: Anxiety, Depression, PTSD Endocrine/Metabolic 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: None Hematologic 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: None Immunologic 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: None Oncologic (Cancer) 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: None Dermatologic 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: None - Infectious Disease History Infectious Disease 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: None - Past Surgical History HEENT Surgical 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: Oral Surgery, Tonsillectomy Other HEENT Surgeries/Procedures: wisdom teeth extraction Respiratory Surgical 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: None GI Surgical 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: Cholecystectomy Female Surgical 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: None Endocrine Surgical 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: Other (See Below) Other Endocrine Surgeries/Procedures: thyroglassal duct cyst excision Neurological Surgical 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: None Dermatological Surgical 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: Other (See Below) Social & Family History - Family History Family Medical History: No Pertinent Family History Cardiac: Reports: High Cholesterol, Hypertension, [place] OBGYN: Reports: Neurological: Reports: CVA Psychiatric: Reports: Anxiety, Bipolar Endocrine/Metabolic: Reports: Diabetes, type II Oncologic: Reports: Cervix, Colon, Lung - Tobacco Use Tobacco Use Status *Q: Never Tobacco User - Caffeine Use Caffeine Use: Reports: None - Alcohol Use Alcohol Use History: No - Recreational Drug Use Recreational Drug Use: No - Sexual History Sexual 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: None H&P Review of Systems - Review of Systems: Review Of Systems: Comprehensive ROS is negative, except as noted in HPI. General: Reports: No Symptoms HEENT: Reports: No Symptoms Pulmonary: Reports: No Symptoms Cardiovascular: Reports: No Symptoms Gastrointestinal: Reports: No Symptoms Genitourinary: Reports: No Symptoms Musculoskeletal: Reports: No Symptoms Skin: Reports: No Symptoms Psychiatric: Reports: No Symptoms Neurological: Reports: No Symptoms Hematologic/Lymphatic: Reports: No Symptoms Immunologic: Reports: No Symptoms L&D Exam - Exam Exam: See Below - Vital Signs Vital Signs: VSS afebrile. See flowsheet. - OB Specific Fundal Height In cm: 37 Contraction Duration (sec): 60-120 Contraction Frequency (min): 3-5 Contraction Intensity: Moderate to Strong Movement: Active Heart Tones: Present Heart Tones per Min: 140 Heart Rate (FHR) Variability: Moderate (6-25 bmp) Presentation: Vertex (via handheld TAUS) - Shah Score Shah Score Cervix Position: Midposition Shah Score Consistency: Soft Shah Score Effacement: >80% Shah Score Dilation: > 5 cm Shah Score 's Station: -3 Shah Score Total: 9 - Exam General: Alert, Oriented, Cooperative HEENT: Mucosa Moist & [place], Posterior Pharynx Clear, TMs Clear, PERRLA Neck: Supple, Trachea Midline Lungs: Clear to Auscultation, Normal Respiratory Effort Cardiovascular: Regular Rate, Regular Rhythm GI/Abdominal Exam: Normal Bowel Sounds, Soft, Non-Tender, No Organomegaly, No Distention Rectal Exam: Deferred Genitourinary: Normal external exam, Enlarged uterus (Gravid uterus) Back Exam: Normal Inspection, Full Range of Motion Extremities: Normal Inspection, Normal Range of Motion, Non-Tender, No Pedal Edema, Normal Capillary Refill Skin: Warm, Dry, Intact Neurological: Cranial Nerves Intact, Reflexes Equal Bilateral Psychiatric: Alert, Normal Affect, Normal Mood - Problem List (1) Uterine contractions SNOMED Code(s): 335180968 ICD Code: [id number] - Status: Acute Priority: High Current Visit: Yes (2) 37 weeks gestation of SNOMED Code(s): 10580035 ICD Code: Z3A.37 - 37 WEEKS GESTATION OF Status: Acute Priority: High Current Visit: Yes Problem List Initiated/Reviewed/Updated: Yes Assessment/Plan Comment:: Plan to admit to Labor and Delivery for observation in anticipation of for viable term . O pos, RI, GBS pos. Ax: Shellfish, morphine, cinnamon, bees. Plan for ampicillin prophylaxis in labor. May receive epidural now as desired pending labs. May intermittently monitor once reactive NST is achieved until epidural established or otherwise indicated. See new orders. Dr. Bo notified and agreeable with POC.
[2021-03-19] MEDS ORDERED: Oxytocin/0.9 % Sodium Chloride 30 UNIT/500 ML BAG IV SCH ×2 (01:15→06:00)
[2021-03-19] MEDS ORDERED: Lactated Ringers 1,000 ML IV SCH (01:15)
[2021-03-19] MEDS ORDERED: Ampicillin 2 GM Vial ONE (01:21)
[2021-03-19] MEDS ORDERED: Sodium Chloride 0.9% 100 ML ONE (01:22)
[2021-03-19] MEDS ORDERED: fentaNYL 100 MCG/2 ML SDV ONE (02:18)
[2021-03-19] MEDS ORDERED: Ropivacaine HCl/PF 200 ML ONE ×2 (02:18→02:54)
--- NOTE | 2021-03-19 04:21 | PCM.PREANE ---
Preanesthetic Assessment - Procedure Proposed Procedure: YAZ for active labor (full term) - Anesthesia/Transfusion/Family Hx Anesthesia History: Prior Anesthesia Without Reaction (cholecystectomy, T&A, thyroglossal duct excision, wisdom teeth, epidurals, all without anesthesia co mplications) Family History of Anesthesia Reaction: No Transfusion History: No Prior Transfusion(s) Additional History: Exercise-induced asthma IBS Anxiety, depression, PTSD Migraines Renal calculi with stent - Review of Systems General: No Symptoms Pulmonary: No Symptoms Cardiovascular: No Symptoms Gastrointestinal: No Symptoms Neurological: No Symptoms Other: Reports: None - Physical Assessment NPO Status Date: 03/18/21 (except for clear liquids) NPO Status Time: 19:00 Height: 1.65 m Weight: 75.75 kg ASA Class: 2 Mental Status: Alert & Oriented x3 Airway Class: Mallampati = 2 Dentition: Reports: Normal Dentition Thyro-Mental Finger Breadths: 4 Mouth Opening Finger Breadths: 3 ROM/Head Extension: Full Lungs: Clear to Auscultation, Normal Respiratory Effort Cardiovascular: Regular Rate, Regular Rhythm - Lab Values: Laboratory Last Values WBC 9.78 K/uL (4.0-11.0) 03/19/21 00:58 RBC 4.20 M/uL (4.30-5.90) L 03/19/21 00:58 Hgb 11.2 g/dL (12.0-16.0) L 03/19/21 00:58 Hct 33.8 % (36.0-46.0) L 03/19/21 00:58 MCV 80.5 fL (80.0-98.0) 03/19/21 00:58 MCH 26.7 pg (27.0-32.0) L 03/19/21 00:58 MCHC 33.1 g/dL (31.0-37.0) 03/19/21 00:58 RDW Std Deviation 39.3 fl (28.0-62.0) 03/19/21 00:58 RDW Coeff of [place]o 14 % (11.0-15.0) 03/19/21 00:58 Plt Count 294 K/uL (150-400) 03/19/21 00:58 MPV 9.60 fL (7.40-12.00) 03/19/21 00:58 SARS-CoV-2 RNA (LEONARDO) NEGATIVE (NEGATIVE) 03/19/21 00:49 Blood Type O POSITIVE 03/19/21 00:58 Antibody Screen NEGATIVE 03/19/21 00:58 - Allergies Allergies/Adverse Reactions: Allergies Allergy/AdvReac Type Severity Reaction Status Date / Time bee venom protein (honey bee) Allergy Swelling Verified 02/27/21 22:33 cinnamon Allergy Anaphylactic Verified 02/27/21 22:33 Shock morphine Allergy Anaphylactic Verified 02/27/21 22:33 Shock shellfish derived Allergy Anaphylactic Verified 02/27/21 22:33 Shock iv contrast Allergy Anaphylactic Uncoded 12/14/19 00:32 Shock - Acknowledgements Anesthesia Type Planned: Epidural Pt an Appropriate Candidate for the Planned Anesthesia: Yes Alternatives and Risks of Anesthesia Discussed w Pt/Guardian: Yes Pt/Guardian Understands and Agrees with Anesthesia Plan: Yes Additional Comments: Thorough H & P with patient participation. 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 All questions answered and concerns addressed. Consent signed with RN witness. 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 Musculoskeletal 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: None Neurological 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: Migraines Psychiatric 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: Anxiety, Depression, PTSD Endocrine/Metabolic 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: None Hematologic 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: None Immunologic 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: None Oncologic (Cancer) 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: None Dermatologic 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: None - Infectious Disease History Infectious Disease 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: None - Past Surgical History HEENT Surgical 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: Oral Surgery, Tonsillectomy Other HEENT Surgeries/Procedures: wisdom teeth extraction Respiratory Surgical 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: None GI Surgical 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: Cholecystectomy Female Surgical 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: None Endocrine Surgical 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: Other (See Below) Other Endocrine Surgeries/Procedures: thyroglassal duct cyst excision Neurological Surgical 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: None Dermatological Surgical 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: Other (See Below) - SUBSTANCE USE Tobacco Use Status *Q: Never Tobacco User Recreational Drug Use History: No - HOME MEDS Home Medications: Home Meds Acetaminophen [Tylenol] 500 mg PO Q6H PRN 02/27/21 [History] - CURRENT (IN HOUSE) MEDS Current Meds: Current Medications Butorphanol Tartrate (Butorphanol 1 Mg/Ml Sdv) 1 mg IVPUSH Q1H PRN PRN Reason: Pain (severe 7-10) Carboprost Tromethamine (Carboprost Tromethamine 250 Mcg/1 Ml Amp) 250 mcg IM ASDIRECTED PRN PRN Reason: Post Hemorrhage Oxytocin/Sodium Chloride (Oxytocin 30 Unit/500 Ml-Ns) 30 unit in 500 mls @ 999 mls/hr IV TITRATE [facility] Tranexamic Acid 1,000 mg/ (Sodium Chloride) 110 mls @ 660 mls/hr IV ONETIME PRN PRN Reason: Bleeding Ampicillin Sodium 1 gm/ Sodium (Chloride) 50 mls @ 100 mls/hr IV Q4H [facility] Lactated Ringer's (Ringers, Lactated) 1,000 mls @ 150 mls/hr IV ASDIRECTED [facility] Last Admin: 03/19/21 01:00 Dose: 999 mls/hr Documented by: Lidocaine HCl (Lidocaine 1% 50 Ml Mdv) 50 ml INJECT ONETIME PRN PRN Reason: Laceration repair Methylergonovine Maleate (Methylergonovine 0.2 Mg/1 Ml Amp) 0.2 mg IM ASDIRECTED PRN PRN Reason: Post Hemorrhage Misoprostol (Misoprostol 200 Mcg Tab) 200 mcg PO ONETIME PRN PRN Reason: Post Hemorrhage Nalbuphine HCl (Nalbuphine 10 Mg/1 Ml Vial) 10 mg IVPUSH Q1H PRN PRN Reason: Pain (severe 7-10) Ondansetron HCl (Ondansetron 4 Mg/2 Ml Sdv) 4 mg IVPUSH Q6H PRN PRN Reason: Nausea/Vomiting Sodium Chloride (Sodium Chloride 0.9% 10 Ml Syringe) 10 ml FLUSH ASDIRECTED PRN PRN Reason: Keep Vein Open Sodium Chloride (Sodium Chloride 0.9% 2.5 Ml Syringe) 2.5 ml FLUSH ASDIRECTED PRN PRN Reason: Keep Vein Open Sodium Chloride (Sodium Chloride 0.9% 10 Ml Sdv) 10 ml IV ASDIRECTED PRN PRN Reason: IV Use Sterile Water (Water For Irrigation,Sterile 1,000 Ml Container) 1,000 ml IRR ASDIRECTED PRN PRN Reason: delivery Discontinued Medications Ampicillin Sodium (Ampicillin 2 Gm Vial) Confirm Administered Dose 2 gm .ROUTE .STK-MED ONE Stop: 03/19/21 01:22 Fentanyl (Fentanyl 100 Mcg/2 Ml Sdv) Confirm Administered Dose 400 mcg .ROUTE .STK-MED ONE Stop: 03/19/21 02:19 Ampicillin Sodium 2 gm/ Sodium (Chloride) 100 mls @ 200 mls/hr IV ONETIME ONE Stop: 03/19/21 01:34 Last Admin: 03/19/21 01:33 Dose: 200 mls/hr Documented by: Sodium Chloride (Normal Saline) Confirm Administered Dose 100 mls @ as directed .ROUTE .STK-MED ONE Stop: 03/19/21 01:23 Ropivacaine (Naropin 0.2%) Confirm Administered Dose 200 mls @ as directed .ROUTE .STK-MED ONE Stop: 03/19/21 02:19 Ropivacaine (Naropin 0.2%) Confirm Administered Dose 200 mls @ as directed .ROUTE .STK-MED ONE Stop: 03/19/21 02:55
--- NOTE | 2021-03-19 04:22 | PCM.SN.2 ---
- Free Text/Narrative Note: 03/19/21 [facility] for active labor Anesthesia time [id number] 0249- To LDR 1, thorough H&P with patient cooperation. Labs and chart reviewed. Discussed epidural risks, benefits, alternatives, procedure, and LOCAL COORDINATOR. All questions answered and concerns addressed. 0254- Consent signed with RN witness. 0256- Sitting position, ASA monitors on, VSS. Time-out. 0258- Sterile procedure employed (gloves, hat), chlorhexidine prep., sterile plastic drape. 0300- Localized with lido 1% at L2-3 0302-1st attempt successful at L2-3. GILMER with saline at 6.5 cm, catheter threaded without resistance to 11cm. No paresthesias. 0305- Negative to aspiration for both CSF and heme, test dose negative. 0311- Bolus dose (6ml Ropivicaine 0.2%) and continuous infusion started (8 ml/hr ropivicaine 0.2%, 4ml LOCAL COORDINATOR option every 10 min, hourly lockout 34 ml). Education provided on LOCAL COORDINATOR, verbalized understanding. 0327- Adequate pain control, T0 level, VSS.
[2021-03-19] MEDS ORDERED: Ampicillin 1 GM in Sodium Chloride 0.9% 50 ML IV SCH (05:00)
[2021-03-19] MEDS ORDERED: Terbutaline 1 MG/ML SDV SUBCUT PRN (05:53)
[2021-03-19] MEDS ORDERED: Oxytocin/Lactated Ringers 30 UNIT/500 ML BAG IV SCH (06:00)
[2021-03-19] MEDS ORDERED: Lanolin 100% Cream 7 GM Tube TOP PRN (07:27)
[2021-03-19] MEDS ORDERED: Bisacodyl 10 MG Supp RECTAL PRN (07:27)
[2021-03-19] MEDS ORDERED: Witch Hazel Medicated Pads 40/Jar TOP PRN (07:27)
[2021-03-19] MEDS ORDERED: Ibuprofen 800 MG Tab PO PRN (07:27)
[2021-03-19] MEDS ORDERED: Benzocaine/Menthol 20%-0.5% Spray 78 GM Cannister TOP PRN (07:27)
[2021-03-19] MEDS ORDERED: Ibuprofen 400 MG Tab PO PRN (07:27)
[2021-03-19] MEDS ORDERED: Acetaminophen 500 MG Tab PO PRN (07:27)
[2021-03-19] MEDS ORDERED: Docusate Sodium 100 MG Cap PO PRN (07:27)
--- NOTE | 2021-03-19 07:42 | PCM.DEL ---
L & D Note - General Info Date of Service: 03/19/21 Mother's Due Date: 04/08/21 - Delivery Note Labor: Spontaneous, Augmented by ARM, Augmented by Oxytocin Delivery Outcome: Livebirth Delivery Method: Spontaneous Vaginal Delivery-Single Infant Delivery Mode: Spontaneous Presentation: Left Occiput Anterior (ZOYA) Nuchal Cord: None Anesthesia Type: Epidural Amniotic Fluid Description: Clear Episiotomy Type: None Laceration: None Placenta: Intact, Spontaneous Cord: 3 Vessels Estimated Blood Loss: 250 : Stimulated, Warmed, [place] Used Score 1 min: 7 Score 5 min: 8 Second Stage Interventions: Reports: Encouragement Given, Pushing Effectively, Pushing Involuntarily, Pushing, Feet in Foot Rests Delivery Comments (Free Text/Narrative):: Cliff is a 21 yo current S/P uncomplicated of viable term NBF at 37+1 weeks (LILLI(LMP) 04/08/2021) following presentation to L&D with C/O strong spontaneous contractions. O pos, RI, GBS pos. Ax: Shellfish, morphine, cinnamon, bees. Adequate ampicillin prophylaxis in labor prior to . BLE epidural in place, adequate pain management. Pushed involuntarily with contractions. head delivered ZOYA with ease, body following with next push. NBF placed to low maternal abdomen, warmed, dried, stimulated. Pitocin IV bolus commenced for active 3rd stage management. Umbilical cord left intact until pulsation cessation (2-3 min), clamped x2, cut by FOB. Placenta delivered Ryan, 3VC, intact ~8-9 min s/p NBF. Perineum inspected intact. Uterus firm U-1. Scant rubra lochia, no clots. APGARS 7/8. weight: 3120 g (6 lb 14 oz). Induction Criteria - Shah Score Shah Score Effacement: >80% - Induction Gestational Age >/= 39 wks: Yes Estimated Pelvis: Reports: Adequate Reassuring Monitoring Strip: Yes - Augmentation Estimated Pelvis: Reports: Adequate Weight Estimated:: Reports: AGA - General Info Date of Service: 03/19/21 Admission Dx/Problem (Free Text): Admission Diagnosis/Problem Admission Diagnosis/Problem 03/19/21 01:02 Cliff is a 21 yo 0-2-2 at 37+1 weeks (LILLI(LMP) 04/08/2021) that presents today with C/O strong spontaneous contractions since 4 pm. Reports FM. Denies vaginal bleeding, LOF, or any other problems at this time. O pos, RI, GBS pos. Ax: Shellfish, morphine, cinnamon, bees. Plan for ampicillin prophylaxis in labor. Pertinent medical hx: bilateral kidney stones, migraines, retained urethral stent, EI asthma. Functional Status: Reports: Pain Controlled, Tolerating Diet - Review of Systems General: Reports: No Symptoms HEENT: Reports: No Symptoms Pulmonary: Reports: No Symptoms Cardiovascular: Reports: No Symptoms Gastrointestinal: Reports: No Symptoms Genitourinary: Reports: No Symptoms Musculoskeletal: Reports: No Symptoms Skin: Reports: No Symptoms Neurological: Reports: No Symptoms Psychiatric: Reports: No Symptoms - Patient Data Vitals - Most Recent: VSS, afebrile. See flowsheet. Weight - Most Recent: 167 lb Lab Results Last 24 Hours: Laboratory Results - last 24 hr 03/19/21 03/19/21 03/19/21 Range/Units 00:49 00:58 00:58 WBC 9.78 (4.0-11.0) K/uL RBC 4.20 L (4.30-5.90) M/uL Hgb 11.2 L (12.0-16.0) g/dL Hct 33.8 L (36.0-46.0) % MCV 80.5 (80.0-98.0) fL MCH 26.7 L (27.0-32.0) pg MCHC 33.1 (31.0-37.0) g/dL RDW Std Deviation 39.3 (28.0-62.0) fl RDW Coeff of Yuko 14 (11.0-15.0) % Plt Count 294 (150-400) K/uL MPV 9.60 (7.40-12.00) fL SARS-CoV-2 RNA (LEONARDO) NEGATIVE (NEGATIVE) Blood Type O POSITIVE Antibody Screen NEGATIVE Med Orders - Current: Current Medications Discontinued Medications Ampicillin Sodium (Ampicillin 2 Gm Vial) Confirm Administered Dose 2 gm .ROUTE .STK-MED ONE Stop: 03/19/21 01:22 Butorphanol Tartrate (Butorphanol 1 Mg/Ml Sdv) 1 mg IVPUSH Q1H PRN PRN Reason: Pain (severe 7-10) Carboprost Tromethamine (Carboprost Tromethamine 250 Mcg/1 Ml Amp) 250 mcg IM ASDIRECTED PRN PRN Reason: Post Hemorrhage Fentanyl (Fentanyl 100 Mcg/2 Ml Sdv) Confirm Administered Dose 400 mcg .ROUTE .STK-MED ONE Stop: 03/19/21 02:19 Oxytocin/Sodium Chloride (Oxytocin 30 Unit/500 Ml-Ns) 30 unit in 500 mls @ 999 mls/hr IV TITRATE [facility] Tranexamic Acid 1,000 mg/ (Sodium Chloride) 110 mls @ 660 mls/hr IV ONETIME PRN PRN Reason: Bleeding Ampicillin Sodium 2 gm/ Sodium (Chloride) 100 mls @ 200 mls/hr IV ONETIME ONE Stop: 03/19/21 01:34 Last Admin: 03/19/21 01:33 Dose: 200 mls/hr Documented by: Ampicillin Sodium 1 gm/ Sodium (Chloride) 50 mls @ 100 mls/hr IV Q4H [facility] Last Admin: 03/19/21 05:19 Dose: 100 mls/hr Documented by: Lactated Ringer's (Ringers, Lactated) 1,000 mls @ 150 mls/hr IV ASDIRECTED [facility] Last Admin: 03/19/21 01:00 Dose: 999 mls/hr Documented by: Sodium Chloride (Normal Saline) Confirm Administered Dose 100 mls @ as directed .ROUTE .[facility]-MED ONE Stop: 03/19/21 01:23 Ropivacaine (Naropin 0.2%) Confirm Administered Dose 200 mls @ as directed .ROUTE .ST-MED ONE Stop: 03/19/21 02:19 Ropivacaine (Naropin 0.2%) Confirm Administered Dose 200 mls @ as directed .ROUTE .ST-MED ONE Stop: 03/19/21 02:55 Oxytocin/Sodium Chloride (Oxytocin 30 Unit/500 Ml-Ns) 30 unit in 500 mls @ 2 mls/hr IV TITRATE [facility]; Protocol Oxytocin/Lactated Ringer's (Pitocin In Lr 30 Units/500 Ml) 30 unit in 500 mls @ 2 mls/hr IV TITRATE [facility]; Protocol Lidocaine HCl (Lidocaine 1% 50 Ml Mdv) 50 ml INJECT ONETIME PRN PRN Reason: Laceration repair Methylergonovine Maleate (Methylergonovine 0.2 Mg/1 Ml Amp) 0.2 mg IM ASDIRECTED PRN PRN Reason: Post Hemorrhage Misoprostol (Misoprostol 200 Mcg Tab) 200 mcg PO ONETIME PRN PRN Reason: Post Hemorrhage Nalbuphine HCl (Nalbuphine 10 Mg/1 Ml Vial) 10 mg IVPUSH Q1H PRN PRN Reason: Pain (severe 7-10) Ondansetron HCl (Ondansetron 4 Mg/2 Ml Sdv) 4 mg IVPUSH Q6H PRN PRN Reason: Nausea/Vomiting Sodium Chloride (Sodium Chloride 0.9% 10 Ml Syringe) 10 ml FLUSH ASDIRECTED PRN PRN Reason: Keep Vein Open Sodium Chloride (Sodium Chloride 0.9% 2.5 Ml Syringe) 2.5 ml FLUSH ASDIRECTED PRN PRN Reason: Keep Vein Open Sodium Chloride (Sodium Chloride 0.9% 10 Ml Sdv) 10 ml IV ASDIRECTED PRN PRN Reason: IV Use Sterile Water (Water For Irrigation,Sterile 1,000 Ml Container) 1,000 ml IRR ASDIRECTED PRN PRN Reason: delivery Terbutaline Sulfate (Terbutaline 1 Mg/Ml Sdv) 0.25 mg SUBCUT ASDIRECTED PRN PRN Reason: Tacysystole - Exam General: Alert, Oriented, Cooperative, No Acute Distress HEENT: Pupils Equal, Mucous Membr. Moist/[place] Neck: Supple Lungs: Clear to Auscultation, Normal Respiratory Effort Cardiovascular: Regular Rate, Regular Rhythm GI/Abdominal Exam: Normal Bowel Sounds, Soft, Non-Tender, No Organomegaly, No Distention (Female) Exam: Normal External Exam, Enlarged Uterus (Firm U-1), Vaginal Bleeding (Scant rubra lochia, no clots.) Back Exam: Normal Inspection, Full Range of Motion Extremities: Normal Inspection, Normal Range of Motion, Non-Tender, No Pedal Edema, Normal Capillary Refill Skin: Warm, Dry, Intact Neurological: No New Focal Deficit (BLE epidural intact) Psy/Mental Status: Alert, Normal Affect, Normal Mood - Problem List & Annotations (1) (spontaneous vaginal delivery) SNOMED Code(s): 478748844 Code(s): O80 - ENCOUNTER FOR FULL-TERM UNCOMPLICATED DELIVERY Status: Acute Priority: High Current Visit: Yes (2) Lactating mother SNOMED Code(s): 649721519, [id number] Code(s): Z39.1 - ENCOUNTER FOR CARE AND EXAMINATION OF LACTATING MOTHER Status: Acute Priority: High Current Visit: Yes - Problem List Review Problem List Initiated/Reviewed/Updated: Yes - My Orders Last 24 Hours: My Active Orders 03/19/21 Breakfast Regular Diet [DIET] 03/19/21 07:27 Acetaminophen [Tylenol Extra Strength] 1,000 mg PO Q4H PRN Acetaminophen [Tylenol Extra Strength] 500 mg PO Q4H PRN Benzocaine/Menthol [Dermoplast Pain Relief 20%-0.5% [place]] 78 gm TOP ASDIRECTED PRN Docusate Sodium [Colace] 100 mg PO Q12H PRN Ibuprofen [Motrin] 400 mg PO Q4H PRN Ibuprofen [Motrin] 800 mg PO Q6H PRN Lanolin [Lansinoh HPA] See Dose Instructions TOP ASDIRECTED PRN bisacodyL [Dulcolax] 10 mg RECTAL ONETIME PRN witch Terrie [Tucks] 1 pad TOP ASDIRECTED PRN Resuscitation Status Routine 03/19/21 07:28 Patient Status [ADT] Routine May Shower [RC] ASDIRECTED Up ad Flaca [RC] ASDIRECTED Vital Signs [RC] PER UNIT ROUTINE Assess Lochia [WOMSER] Per Unit Routine Assess Uterine Involution [WOMSER] Per Unit Routine Peripheral IV Discontinue [OM.PC] Routine 03/19/21 07:29 Cooling Warming Measures [RC] ASDIRECTED Ice Therapy [OM.PC] Per Unit Routine Perineal Care [OM.PC] Per Unit Routine Sitz Bath [OM.PC] Per Unit Routine - Plan Plan:: Plan to admit to inpatient unit following uncomplicated for viable term NBF. O pos, RI, GBS pos with adequate ampicillin prophylaxis in labor. D/C epidural now, may ambulate with assistance in 2-4 hours. If patient not voided within 6 hours , may I&O cath and notify provider. Resume regular diet. May receive etl consultant support if needed or desired. See new orders. Dr. Bo notified and agreeable with POC.
[2021-03-19] MEDS: Acetaminophen 500 MG Tab PO PRN ×2 (12:41→18:55)
--- NOTE | 2021-03-20 02:07 | PCM.DCSUM1 ---
Discharge Summary - Hospital Course Free Text/Narrative:: Cliff is a 21 yo current PPD1 S/P uncomplicated of viable term NBF at 37+1 weeks (LILLI(LMP) 04/08/2021) following presentation to L&D with C/O strong spontaneous contractions. O pos, RI, GBS pos. Ax: Shellfish, morphine, cinnamon, bees. Adequate ampicillin prophylaxis in labor prior to . Patient resting comfortably in bed, NBF in bassinet. Independently ambulating, eating, hydrating, voiding. Breast and bottle feeding well, without issues. Uterus firm @U. Small vaginal bleeding without clots. Pain well controlled with Tylenol and ibuprofen. Patient reports no questions or concerns at this time, verbalizes desire to be discharged home today. Diagnosis: Stroke: No - Discharge Data Discharge Date: 03/20/21 Discharge Disposition: Home, Self-Care 01 Condition: Good - Referral to Home Health Primary Care Physician: [facility] - Discharge Diagnosis/Problem(s) (1) (spontaneous vaginal delivery) SNOMED Code(s): 950891989 ICD Code: O80 - ENCOUNTER FOR FULL-TERM UNCOMPLICATED DELIVERY Status: Acute Priority: High Current Visit: Yes (2) Lactating mother SNOMED Code(s): 410562544, 524153146 ICD Code: Z39.1 - ENCOUNTER FOR CARE AND EXAMINATION OF LACTATING MOTHER Status: Acute Priority: High Current Visit: Yes - Patient Instructions Diet: Usual Diet as Tolerated, Drink 8-10+ Glasses/Day Activity: As Tolerated, No Strenuous Activities, Rest and Relax Today Driving: May Drive Today Showering/Bathing: May Shower Showering/Bathing, Other: May sitz bathe for perineal comfort. Notify Provider of: Fever, Increased Pain, Swelling and Redness, Drainage, Nausea and/or Vomiting - Discharge Plan *PRESCRIPTION DRUG MONITORING PROGRAM REVIEWED*: No *COPY OF PRESCRIPTION DRUG MONITORING REPORT IN PATIENT MONA: No Prescriptions/Med Rec: Ibuprofen [Motrin] 800 mg PO Q8H PRN #90 tablet PRN Reason: Pain Home Medications: Home Meds Ibuprofen [Motrin] 800 mg PO Q8H PRN #90 tablet 03/20/21 [Rx] Oxygen Therapy Mode: Room Air Patient Handouts: Care After Vaginal Delivery - Discharge Summary/Plan Comment DC Time >30 min.: Yes Discharge Summary/Plan Comment: Hemodynamically stable, afebrile. Warning S/Ss, when to call for help discus sed. No questions. RTO in 6 weeks for visit, or sooner if problems arise. - General Info Date of Service: 03/20/21 Admission Dx/Problem (Free Text: Admission Diagnosis/Problem Admission Diagnosis/Problem 03/19/21 01:02 Cliff is a 21 yo 0-2-2 at 37+1 weeks (LILLI(LMP) 04/08/2021) that presents today with C/O strong spontaneous contractions since 4 pm. Reports FM. Denies vaginal bleeding, LOF, or any other problems at this time. O pos, RI, GBS pos. Ax: Shellfish, morphine, cinnamon, bees. Plan for ampicillin prophylaxis in labor. Pertinent medical hx: bilateral kidney stones, migraines, retained urethral stent, EI asthma. Functional Status: Reports: Pain Controlled, Tolerating Diet, Ambulating, Urinating - Review of Systems General: Reports: No Symptoms HEENT: Reports: No Symptoms Pulmonary: Reports: No Symptoms Cardiovascular: Reports: No Symptoms Gastrointestinal: Reports: No Symptoms Genitourinary: Reports: No Symptoms Musculoskeletal: Reports: No Symptoms Skin: Reports: No Symptoms Neurological: Reports: No Symptoms Psychiatric: Reports: No Symptoms - Patient Data Vitals - Most Recent: Last Vital Signs Temp 97.6 F 03/19/21 16:40 Pulse 78 03/19/21 16:40 Resp 20 03/19/21 16:40 BP 109/70 03/19/21 16:40 Pulse Ox 97 03/19/21 16:40 Weight - Most Recent: 167 lb Med Orders - Current: Current Medications Acetaminophen (Acetaminophen 500 Mg Tab) 500 mg PO Q4H PRN PRN Reason: Pain (mild 1-3) Acetaminophen (Acetaminophen 500 Mg Tab) 1,000 mg PO Q4H PRN PRN Reason: Pain (mild 1-3) Last Admin: 03/19/21 18:55 Dose: 1,000 mg Documented by: Benzocaine/Menthol (Benzocaine/Menthol 20%-0.5% Dawson 78 Gm Cannister) 0 gm TOP ASDIRECTED PRN PRN Reason: Perineal Comfort Measure Last Admin: 03/19/21 09:21 Dose: 1 canister Documented by: Bisacodyl (Bisacodyl 10 Mg Supp) 10 mg RECTAL ONETIME PRN PRN Reason: Constipation Docusate Sodium (Docusate Sodium 100 Mg Cap) 100 mg PO Q12H PRN PRN Reason: Constipation Last Admin: 03/19/21 22:13 Dose: 100 mg Documented by: Emollient Ointment (Lanolin 100% Cream 7 Gm Tube) 0 gm TOP ASDIRECTED PRN PRN Reason: Sore Nipples Last Admin: 03/19/21 09:21 Dose: 1 tube Documented by: Ibuprofen (Ibuprofen 400 Mg Tab) 400 mg PO Q4H PRN PRN Reason: Pain (mild 1-3) Ibuprofen (Ibuprofen 800 Mg Tab) 800 mg PO Q6H PRN PRN Reason: Pain (mild 1-3) Last Admin: 03/19/21 22:11 Dose: 800 mg Documented by: Jules Stacey (Witch Stacey Medicated Pads 40/Jar) 1 pad TOP ASDIRECTED PRN PRN Reason: comfort care Last Admin: 03/19/21 09:22 Dose: 1 tub Documented by: Discontinued Medications Ampicillin Sodium (Ampicillin 2 Gm Vial) Confirm Administered Dose 2 gm .ROUTE .STK-MED ONE Stop: 03/19/21 01:22 Butorphanol Tartrate (Butorphanol 1 Mg/Ml Sdv) 1 mg IVPUSH Q1H PRN PRN Reason: Pain (severe 7-10) Carboprost Tromethamine (Carboprost Tromethamine 250 Mcg/1 Ml Amp) 250 mcg IM ASDIRECTED PRN PRN Reason: Post Hemorrhage Fentanyl (Fentanyl 100 Mcg/2 Ml Sdv) Confirm Administered Dose 400 mcg .ROUTE .STK-MED ONE Stop: 03/19/21 02:19 Oxytocin/Sodium Chloride (Oxytocin 30 Unit/500 Ml-Ns) 30 unit in 500 mls @ 999 mls/hr IV TITRATE JAZ Tranexamic Acid 1,000 mg/ (Sodium Chloride) 110 mls @ 660 mls/hr IV ONETIME PRN PRN Reason: Bleeding Ampicillin Sodium 2 gm/ Sodium (Chloride) 100 mls @ 200 mls/hr IV ONETIME ONE Stop: 03/19/21 01:34 Last Admin: 03/19/21 01:33 Dose: 200 mls/hr Documented by: Ampicillin Sodium 1 gm/ Sodium (Chloride) 50 mls @ 100 mls/hr IV Q4H JAZ Last Admin: 03/19/21 05:19 Dose: 100 mls/hr Documented by: Lactated Ringer's (Ringers, Lactated) 1,000 mls @ 150 mls/hr IV ASDIRECTED JAZ Last Admin: 03/19/21 01:00 Dose: 999 mls/hr Documented by: Sodium Chloride (Normal Saline) Confirm Administered Dose 100 mls @ as directed .ROUTE .[facility] ONE Stop: 03/19/21 01:23 Ropivacaine (Naropin 0.2%) Confirm Administered Dose 200 mls @ as directed .ROUTE .[facility] ONE Stop: 03/19/21 02:19 Ropivacaine (Naropin 0.2%) Confirm Administered Dose 200 mls @ as directed .ROUTE .[facility] ONE Stop: 03/19/21 02:55 Oxytocin/Sodium Chloride (Oxytocin 30 Unit/500 Ml-Ns) 30 unit in 500 mls @ 2 mls/hr IV TITRATE JAZ; Protocol Oxytocin/Lactated Ringer's (Pitocin In Lr 30 Units/500 Ml) 30 unit in 500 mls @ 2 mls/hr IV TITRATE JAZ; Protocol Lidocaine HCl (Lidocaine 1% 50 Ml Mdv) 50 ml INJECT ONETIME PRN PRN Reason: Laceration repair Methylergonovine Maleate (Methylergonovine 0.2 Mg/1 Ml Amp) 0.2 mg IM ASDIRECTED PRN PRN Reason: Post Hemorrhage Misoprostol (Misoprostol 200 Mcg Tab) 200 mcg PO ONETIME PRN PRN Reason: Post Hemorrhage Nalbuphine HCl (Nalbuphine 10 Mg/1 Ml Vial) 10 mg IVPUSH Q1H PRN PRN Reason: Pain (severe 7-10) Ondansetron HCl (Ondansetron 4 Mg/2 Ml Sdv) 4 mg IVPUSH Q6H PRN PRN Reason: Nausea/Vomiting Sodium Chloride (Sodium Chloride 0.9% 10 Ml Syringe) 10 ml FLUSH ASDIRECTED PRN PRN Reason: Keep Vein Open Sodium Chloride (Sodium Chloride 0.9% 2.5 Ml Syringe) 2.5 ml FLUSH ASDIRECTED PRN PRN Reason: Keep Vein Open Sodium Chloride (Sodium Chloride 0.9% 10 Ml Sdv) 10 ml IV ASDIRECTED PRN PRN Reason: IV Use Sterile Water (Water For Irrigation,Sterile 1,000 Ml Container) 1,000 ml IRR ASDIRECTED PRN PRN Reason: delivery Terbutaline Sulfate (Terbutaline 1 Mg/Ml Sdv) 0.25 mg SUBCUT ASDIRECTED PRN PRN Reason: Tacysystole - Exam General: Reports: Alert, Oriented, Cooperative, No Acute Distress HEENT: Reports: Pupils Equal, Mucous Membr. Moist/[place] Neck: Reports: Supple Lungs: Reports: Clear to Auscultation, Normal Respiratory Effort Cardiovascular: Reports: Regular Rate, Regular Rhythm GI/Abdominal Exam: Normal Bowel Sounds, Soft, Non-Tender, No Organomegaly, No Distention (Female) Exam: Normal External Exam, Enlarged Uterus ( uterus, firm @U), Vaginal Bleeding (Small rubra lochia, no clots.) Rectal (Female) Exam: Deferred Back Exam: Reports: Normal Inspection, Full Range of Motion Extremities: Normal Inspection, Normal Range of Motion, Non-Tender, No Pedal Edema, Normal Capillary Refill Skin: Reports: Warm, Dry, Intact Neurological: Reports: No New Focal Deficit Psy/Mental Status: Reports: Alert, Normal Affect, Normal Mood
--- NOTE | 2021-03-20 12:38 | PCM48HPAN ---
Post Anesthesia Note - EVALUATION WITHIN 48HRS OF ANESTHETIC Vital Signs in Normal Range: Yes Patient Participated in Evaluation: Yes Respiratory Function Stable: Yes Airway Patent: Yes Cardiovascular Function Stable: Yes Hydration Status Stable: Yes Pain Control Satisfactory: Yes (Mild backache (1/10), otherwise no pain) Nausea and Vomiting Control Satisfactory: Yes (Taking PO well, denies nausea) Mental Status Recovered: Yes Vital Signs: Last Vital Signs Temp 35.9 C L 03/20/21 08:00 Pulse 72 03/20/21 08:00 Resp 16 03/20/21 08:00 BP 102/57 L 03/20/21 08:00 Pulse Ox 96 03/20/21 08:00 - COMMENTS/OBSERVATIONS Free Text/Narrative:: Ambulating well without assist. Reports full return of strength and sensation to BLE.
== END 2021-03-20 13:30 | disposition home or self-care (01) | DRG 807 ==
LOC: MW.OBCHECK 00:35 → MW.OB 00:36 → MW.OBCHECK 01:05 → MW.OB 01:05 → OBSVTOIN 07:10 → MW.OB 16:43
PROVIDERS: ADMIT Obstetrics & Gynecology Obstetrics; ATTEND Obstetrics & Gynecology Obstetrics
PROC: 10E0XZZ Delivery of Products of Conception, External Approach (ICD-10-PCS; principal; 2021-03-19)
PROC: 3E0R3BZ Introduction of Anesthetic Agent into Spinal Canal, Percutaneous Approach (ICD-10-PCS; 2021-03-19)
PROC: 00HU33Z Insertion of Infusion Device into Spinal Canal, Percutaneous Approach (ICD-10-PCS; 2021-03-19)
DX: O99.824 Streptococcus B carrier state complicating childbirth (principal); Z37.0 Single live birth; Z3A.37 37 weeks gestation of pregnancy; Z20.822 Contact with and (suspected) exposure to COVID-19
CPT/HCPCS: 36415; 59025; 59409; 85027; 86592; 86850; 86900; 86901; A9270-GY; J0290; J3010; J7120; U0002

== ENCOUNTER 2021-04-16 18:07 | Emergency (ER) | payer MEDICAID ==
[2021-04-16] MEDS ORDERED: Sodium Chloride 0.9% 1,000 ML IV ONE (18:29)
[2021-04-16] MEDS ORDERED: Ketorolac 30 MG/ML SDV IVPUSH ONE (18:29)
[2021-04-16] MEDS ORDERED: Ondansetron 4 MG/2 ML SDV IVPUSH ONE (18:33)
--- NOTE | 2021-04-16 18:45 | EDM.PDOC ---
ED HPI GENERAL MEDICAL PROBLEM - General Chief Complaint: Genitourinary Problem Stated Complaint: POSSIBLE KIDNEY STONE BLOCK Time Seen by Provider: 04/16/21 18:15 Source of Information: Reports: Patient History Limitations: Reports: No Limitations - History of Present Illness INITIAL COMMENTS - FREE TEXT/NARRATIVE: HISTORY AND PHYSICAL: History of present illness: The patient is a 21-year-old female with a history of kidney stones who presents to the emergency department with complaints of left lower quad pain that started approximately 4 days ago. The patient states that the pain mimics her last kidney stone which was at the end of October 2019 after the of her daughter. That stone required stent placement and antibiotics. The patient states that she has been running a fever of 104 she took Advil at noon but it does not seem to help. In the ED the patient's temperature is 104.1. The patient states that she ate pot roast last night and vomited it up causing some throat irritation. She has had only broth today and no vomiting. She is nauseated. Patient denies any headache, change in vision, syncope or near syncope. Denies any chest pain, shortness of breath or cough. Denies any diarrhea, constipation or dysuria. Has not noted any blood in urine or stool. Review of systems: As per history of present illness and below otherwise all systems reviewed and negative. Past medical history: As per history of present illness and as reviewed below otherwise noncontributory. Surgical history: As per history of present illness and as reviewed below otherwise noncontributory. Social history: See social history for further information Family history: As per history of present illness and as reviewed below otherwise noncontributory. Physical exam: General: Well developed and well nourished. Alert and orientated x 3. General acute distress. Vital signs are stable and have been reviewed by me. Nursing notes were reviewed. HEENT: Atraumatic, normocephalic, pupils equal and reactive bilaterally, negative for conjunctival pallor or scleral icterus, mucous membranes moist, TMs normal bilaterally, throat clear, neck supple, nontender, trachea midline. No drooling or trismus noted. No meningeal signs. No hot potato voice noted. Lungs: Clear to auscultation bilaterally. No wheezes, rales, or rhonchi. Chest nontender. Normal work of breathing, no accessory muscles used. Heart: S1S2, regular rate and rhythm without overt murmur, gallops, or rubs. No JVD. No peripheral edema Abdomen: Soft, nondistended, lower mid pelvic tenderness. Normoactive bowel sounds. Right costovertebral tenderness. Negative for left costovertebral tenderness. Skin: Intact, warm, dry. No lesions or rashes noted. Hematologic: No petechiae or purpra. Mucosa appropriate color and normal nail bed color and refill. Extremities: Atraumatic, moves all extremities per self without difficulty or deficits, negative for cords or calf pain. Neurovascular unremarkable. Neuro: Awake, alert, oriented. Cranial nerves II through XII unremarkable. Cerebellum unremarkable. Motor and sensory unremarkable throughout. Exam nonfocal. Psychiatric: Mood and affect are appropriate. Normal thought process. Answering questions appropriately. Notes: *This patient was seen and evaluated during the 2019 SARS-CoV-2 novel coronavirus pandemic period. Community viral transmission is ongoing at time of this encounter and the emergency department is operating under pandemic response procedures. 19:15 the patient's lactic acid was 1.4, bilirubin 1.0, platelet 219, INR 1.14, creatinine 1.0 not meeting septic criteria. The patient does have a white blood cell count of 16.5. Her CMP is significant for sodium of 133 and chloride of 95. Her urinalysis is nitrate positive leukoesterase +, 1+ bacteria I will treat her with ciprofloxacin 400 mg IV. 20:35 discussed the patient's lab results and her CT results with her and her . The patient's fever broke and she is feeling much better. Her pain is almost resolved completely. I offered her observation for continued IV therapy and the patient refused. She states that she has a at home that she breast-feeds and just could not be away from her. I educated the patient and her on the complications of low blood pressure at home as her blood pressure was 80/52 in the emergency department. Patient is asymptomatic. After education the patient and her have continued to choose discharge to home. I will discharge the patient with Bactrim DS p.o. twice daily for 10 days as the patient did not tolerate any fluoroquinolones. I have talked with the patient about today's findings, in addition to providing specific details for plan of care. Reassessment at the time of disposition de briannetrates that the patient is in no acute distress. The patient is stable for discharge, counseling was provided and we discussed in great detail signs and symptoms that would prompt them to return to the Emergency Department. Medication, follow up and supportive care measures were reviewed and discussed. Voices understanding and is agreeable to plan of care. Denies any further questions or concerns at this time. Diagnostics: CBC, CMP, INR, lactic acid, blood cultures x2, UA, CT abdomen pelvis Therapeutics: IV fluids, Toradol, Zofran Prescription: Bactrim DS p.o. twice daily for 10 days Impression: Pyelonephritis Plan: 1. You were evaluated today on an emergent basis. Your complaints of fever and left lower quadrant pain were evaluated by lab work and a abdominal CT. Your white blood cell count was elevated at 16.95. Your abdominal CT Impression: Thickening of the wall the urinary bladder, which can be seen with cystitis. Multiple bilateral renal calculi with mild prominence of the left proximal ureter and left renal collecting system. No ureteral calculus is identified. You were offered admission for IV antibiotics but refused. I will discharge you on Bactrim DS 1 tablet twice daily for 10 days. If you home and become dizzy or lightheaded please return to the emergency department as your blood pressure was 88/52 in the emergency department. Be sure to take a probiotic with your antibiotics to prevent diarrhea. 2. You can alternate Tylenol and ibuprofen as needed for pain and fever management. 3. We encourage you to follow up with your primary care provider and/or recommended specialist in the next few days for re-evaluation and further care/management. 4. If your symptoms should worsen, new symptoms develop or any of the signs and symptoms we discussed should arise please return to the emergency room or call 911 (if needed). Definitive disposition and diagnosis as appropriate pending reevaluation and review of above. - Related Data Allergies Allergy/AdvReac Type Severity Reaction Status Date / Time bee venom protein (honey bee) Allergy Swelling Verified 04/16/21 18:23 cinnamon Allergy Anaphylactic Verified 04/16/21 18:23 Shock morphine Allergy Anaphylactic Verified 04/16/21 18:23 Shock shellfish derived Allergy Anaphylactic Verified 04/16/21 18:23 Shock iv contrast Allergy Anaphylactic Uncoded 04/16/21 18:23 Shock Home Meds: Home Meds Ibuprofen [Motrin] 800 mg PO Q8H PRN #90 tablet 03/20/21 [Rx] Sulfamethoxazole/Trimethoprim [Bactrim Ds Tablet] 1 each PO BID 10 Days #20 tablet 04/16/21 [Rx] Past Medical History - Past Health History Medical/Surgical History: Denies Medical/Surgical History HEENT 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: None Cardiovascular 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: None Respiratory 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: Asthma, Other (See Below) Other Respiratory History: excercise induced asthma Gastrointestinal 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: Inflammatory Bowel Disease, Other (See Below) Other Gastrointestinal History: hx of IBS Genitourinary 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: Renal Calculus [employer] 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: , Spontaneous Musculoskeletal 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: None Neurological 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: Migraines Psychiatric 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: Anxiety, Depression, PTSD Endocrine/Metabolic 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: None Hematologic 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: None Immunologic 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: None Oncologic (Cancer) 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: None Dermatologic 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: None - Infectious Disease History Infectious Disease 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: None - Past Surgical History HEENT Surgical 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: Oral Surgery, Tonsillectomy Other HEENT Surgeries/Procedures: wisdom teeth extraction Respiratory Surgical 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: None GI Surgical 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: Cholecystectomy Female Surgical 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: None Endocrine Surgical 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: Other (See Below) Other Endocrine Surgeries/Procedures: thyroglassal duct cyst excision Neurological Surgical 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: None Dermatological Surgical 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: Other (See Below) Social & Family History - Family History Family Medical History: No Pertinent Family History Cardiac: Reports: High Cholesterol, Hypertension, [place] OBGYN: Reports: Neurological: Reports: CVA Psychiatric: Reports: Anxiety, Bipolar Endocrine/Metabolic: Reports: Diabetes, type II Oncologic: Reports: Cervix, Colon, Lung - Caffeine Use Caffeine Use: Reports: None - Recreational Drug Use Recreational Drug Use: No - Sexual History Sexual 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: None ED ROS GENERAL - Review of Systems Review Of Systems: Comprehensive ROS is negative, except as noted in HPI. ED EXAM, GI/ABD - Physical Exam Exam: See Below (See dictation) Course - Vital Signs Last Recorded V/S: Last Vital Signs Temp 99.1 F 04/16/21 20:40 Pulse 87 04/16/21 20:40 Resp 16 04/16/21 20:40 BP 89/52 L 04/16/21 20:40 Pulse Ox 98 04/16/21 20:40 - Orders/Labs/Meds Orders: Active Orders 24 hr Category Date Time Status CULTURE BLOOD [BC] Stat Lab 04/16/21 18:18 Received CULTURE BLOOD [BC] Stat Lab 04/16/21 18:50 Received Blood Culture x2 Reflex Set [OM.PC] Stat Oth 04/16/21 18:35 Ordered Labs: Laboratory Tests 04/16/21 04/16/21 04/16/21 Range/Units 18:18 18:18 18:18 WBC 16.95 H (4.0-11.0) K/uL RBC 5.36 (4.30-5.90) M/uL Hgb 14.3 (12.0-16.0) g/dL Hct 41.8 (36.0-46.0) % MCV 78.0 L (80.0-98.0) fL MCH 26.7 L (27.0-32.0) pg MCHC 34.2 (31.0-37.0) g/dL RDW Std Deviation 46.8 (28.0-62.0) fl RDW Coeff of [place] 16 H (11.0-15.0) % Plt Count 219 (150-400) K/uL MPV 10.00 (7.40-12.00) fL Neut % (Auto) 87.5 H (48.0-80.0) % Lymph % (Auto) 5.9 L (16.0-40.0) % [place] % (Auto) 6.4 (0.0-15.0) % Eos % (Auto) 0.0 (0.0-7.0) % Baso % (Auto) 0.2 (0.0-1.5) % Neut # (Auto) 14.8 H (1.4-5.7) K/uL Lymph # (Auto) 1.0 (0.6-2.4) K/uL [place] # (Auto) 1.1 H (0.0-0.8) K/uL Eos # (Auto) 0.0 (0.0-0.7) K/uL Baso # (Auto) 0.0 (0.0-0.1) K/uL Nucleated RBC % 0.0 /100WBC Nucleated RBCs # 0 K/uL INR Sodium 133 L (136-145) mmol/L Potassium 3.6 (3.5-5.1) mmol/L Chloride 95 L (98-107) mmol/L Carbon Dioxide 22.2 (21.0-32.0) mmol/L BUN 10 (7.0-18.0) mg/dL Creatinine 1.0 (0.6-1.0) mg/dL Est Cr Clr Drug Dosing 78.73 mL/min Estimated GFR (MDRD) > 60.0 ml/min Glucose 100 (74-106) mg/dL Lactic Acid 1.4 (0.4-2.0) mmol/L Calcium 8.8 (8.5-10.1) mg/dL Total Bilirubin 1.0 (0.2-1.0) mg/dL AST 13 L (15-37) IU/L ALT 14 (14-63) IU/L Alkaline Phosphatase 101 (46-116) U/L Total Protein 8.1 (6.4-8.2) g/dL Albumin 3.3 L (3.4-5.0) g/dL Globulin 4.8 H (2.6-4.0) g/dL Albumin/Globulin Ratio 0.7 L (0.9-1.6) Urine Color Urine Appearance Urine pH (5.0-8.0) Ur Specific [place] (1.001-1.035) Urine Protein (NEGATIVE) mg/dL Urine Glucose (UA) (NEGATIVE) mg/dL Urine Ketones (NEGATIVE) mg/dL Urine Occult Blood (NEGATIVE) Urine Nitrite (NEGATIVE) Urine Bilirubin (NEGATIVE) Urine Urobilinogen (<2.0) EU/dL Ur Leukocyte Esterase (NEGATIVE) Urine RBC (0-2/HPF) Urine WBC (0-5/HPF) Ur Epithelial Cells (NONE-FEW) Urine Bacteria (NEGATIVE) 04/16/21 04/16/21 Range/Units 18:21 18:50 WBC (4.0-11.0) K/uL RBC (4.30-5.90) M/uL Hgb (12.0-16.0) g/dL Hct (36.0-46.0) % MCV (80.0-98.0) fL MCH (27.0-32.0) pg MCHC (31.0-37.0) g/dL RDW Std Deviation (28.0-62.0) fl RDW Coeff of [place] (11.0-15.0) % Plt Count (150-400) K/uL MPV (7.40-12.00) fL Neut % (Auto) (48.0-80.0) % Lymph % (Auto) (16.0-40.0) % [place] % (Auto) (0.0-15.0) % Eos % (Auto) (0.0-7.0) % Baso % (Auto) (0.0-1.5) % Neut # (Auto) (1.4-5.7) K/uL Lymph # (Auto) (0.6-2.4) K/uL [place] # (Auto) (0.0-0.8) K/uL Eos # (Auto) (0.0-0.7) K/uL Baso # (Auto) (0.0-0.1) K/uL Nucleated RBC % /100WBC Nucleated RBCs # K/uL INR 1.14 Sodium (136-145) mmol/L Potassium (3.5-5.1) mmol/L Chloride (98-107) mmol/L Carbon Dioxide (21.0-32.0) mmol/L BUN (7.0-18.0) mg/dL Creatinine (0.6-1.0) mg/dL Est Cr Clr Drug Dosing mL/min Estimated GFR (MDRD) ml/min Glucose (74-106) mg/dL Lactic Acid (0.4-2.0) mmol/L Calcium (8.5-10.1) mg/dL Total Bilirubin (0.2-1.0) mg/dL AST (15-37) IU/L ALT (14-63) IU/L Alkaline Phosphatase (46-116) U/L Total Protein (6.4-8.2) g/dL Albumin (3.4-5.0) g/dL Globulin (2.6-4.0) g/dL Albumin/Globulin Ratio (0.9-1.6) Urine Color YELLOW Urine Appearance SLT CLOUDY Urine pH 5.5 (5.0-8.0) Ur Specific [place] 1.015 (1.001-1.035) Urine Protein 30 H (NEGATIVE) mg/dL Urine Glucose (UA) NEGATIVE (NEGATIVE) mg/dL Urine Ketones >=80 (NEGATIVE) mg/dL Urine Occult Blood MODERATE H (NEGATIVE) Urine Nitrite POSITIVE H (NEGATIVE) Urine Bilirubin NEGATIVE (NEGATIVE) Urine Urobilinogen 0.2 (<2.0) EU/dL Ur Leukocyte Esterase LARGE H (NEGATIVE) Urine RBC 2-4 (0-2/HPF) Urine WBC 50-60 (0-5/HPF) Ur Epithelial Cells OCCASIONAL (NONE-FEW) Urine Bacteria 1+ H (NEGATIVE) Meds: Medications Discontinued Medications Generic Name Dose Route Start Last Admin Trade Name Elle PRN Reason Stop Dose Admin Sodium Chloride 1,000 mls @ 999 mls/hr 04/16/21 18:29 04/16/21 19:01 Normal Saline IV 04/16/21 19:29 999 mls/hr .BOLUS ONE Administration Ciprofloxacin/Dextrose 400 mg/ 200 mls @ 200 mls/hr 04/16/21 19:30 04/16/21 19:37 Premix IV 200 mls/hr Q12H JAZ Administration Ketorolac Tromethamine 30 mg 04/16/21 18:29 04/16/21 19:01 Ketorolac 30 Mg/Ml Sdv IVPUSH 04/16/21 18:30 30 mg ONETIME ONE Administration Ondansetron HCl 4 mg 04/16/21 18:33 04/16/21 19:01 Ondansetron 4 Mg/2 Ml Sdv IVPUSH 04/16/21 18:34 4 mg ONETIME ONE Administration Departure - Departure Time of Disposition: 20:37 Disposition: Home, Self-Care 01 Condition: Good Clinical Impression: Pyelonephritis - Discharge Information *PRESCRIPTION DRUG MONITORING PROGRAM REVIEWED*: Not Applicable *COPY OF PRESCRIPTION DRUG MONITORING REPORT IN PATIENT MONA: Not Applicable Prescriptions: Sulfamethoxazole/Trimethoprim [Bactrim Ds Tablet] 1 each PO BID 10 Days #20 tablet Instructions: Pyelonephritis, Adult, [id number] Referrals: PCP,None [Primary Care Provider] - Forms: ED Department Discharge Additional Instructions: The following information is given to patients seen in the emergency department who are being discharged to home. This information is to outline your options for follow-up care. We provide all patients seen in our emergency department with a follow-up referral. The need for follow-up, as well as the timing and circumstances, are variable depending upon the specifics of your emergency department visit. If you don't have a primary care physician on staff, we will provide you with a referral. We always advise you to contact your personal physician following an emergency department visit to inform them of the circumstance of the visit and for follow-up with them and/or the need for any referrals to a consulting specialist. The emergency department will also refer you to a specialist when appropriate. This referral assures that you have the opportunity for follow-up care with a specialist. All of these measure are taken in an effort to provide you with optimal care, which includes your follow-up. Under all circumstances we always encourage you to contact your private physician who remains a resource for coordinating your care. When calling for follow-up care, please make the office aware that this follow-up is from your recent emergency room visit. If for any reason you are refused follow-up, please contact the [facility] Emergency Department at and asked to speak to the emergency department charge nurse. [facility] [address] [place] [address] [place] [address] Plan: 1. You were evaluated today on an emergent basis. Your complaints of fever and left lower quadrant pain were evaluated by lab work and a abdominal CT. Your white blood cell count was elevated at 16.95. Your abdominal CT Impression: Thickening of the wall the urinary bladder, which can be seen with cystitis. Multiple bilateral renal calculi with mild prominence of the left proximal ureter and left renal collecting system. No ureteral calculus is identified. You were offered admission for IV antibiotics but refused. I will discharge you on Bactrim DS 1 tablet twice daily for 10 days. If you home and become dizzy or lightheaded please return to the emergency department as your blood pressure was 88/52 in the emergency department. Be sure to take a probiotic with your antibiotics to prevent diarrhea. 2. You can alternate Tylenol and ibuprofen as needed for pain and fever management. 3. We encourage you to follow up with your primary care provider and/or recommended specialist in the next few days for re-evaluation and further care/management. 4. If your symptoms should worsen, new symptoms develop or any of the signs and symptoms we discussed should arise please return to the emergency room or call 911 (if needed). Sepsis Event Note (ED) - Evaluation Sepsis Screening Result: Possible Sepsis Risk - Focused Exam Vital Signs: Vital Signs Temp Pulse Resp BP Pulse Ox 04/16/21 20:40 99.1 F 87 16 89/52 L 98 04/16/21 20:15 99.0 F 87 16 92/55 L 97 04/16/21 19:42 99.4 F 101 H 18 85/50 L 97 04/16/21 18:24 104.1 F H 136 H 24 H 108/65 98 - My Orders Last 24 Hours: My Active Orders 04/16/21 18:18 CULTURE BLOOD [BC] Stat 04/16/21 18:35 Blood Culture x2 Reflex Set [OM.PC] Stat 04/16/21 18:50 CULTURE BLOOD [BC] Stat - Assessment/Plan Last 24 Hours: My Active Orders 04/16/21 18:18 CULTURE BLOOD [BC] Stat 04/16/21 18:35 Blood Culture x2 Reflex Set [OM.PC] Stat 04/16/21 18:50 CULTURE BLOOD [BC] Stat
[2021-04-16 18:52] LABS: BLOOD UREA NITROGEN,BUN 10 mg/dL (7.0-18.0); CARBON DIOXIDE,CO2 22.2 mmol/L (21.0-32.0); CHLORIDE,CL 95 mmol/L (98-107); GLUCOSE RANDOM 100 mg/dL (74-106); POTASSIUM,K 3.6 mmol/L (3.5-5.1); SODIUM,NA 133 mmol/L (136-145)
[2021-04-16] MEDS ORDERED: Ciprofloxacin in D5W 400 MG in Premix Bag 1 BAG IV SCH ×2 (19:30)
--- NOTE | 2021-04-16 19:40 | CT ---
Indication: Left lower quadrant pain with hematuria. Technique: Multiple contiguous axial images were obtained from the lung bases is symphysis pubis without intravenous contrast enhancement. Please note that all CT scans at this facility use dose modulation, iterative reconstruction, and/or weight-based dosing when appropriate to reduce radiation dose to as low as reasonably achievable. Comparison: December 13, 2019. Findings: The heart is normal in size. The lung bases are clear. No infiltrate, pleural effusion, or pneumothorax is identified. The unenhanced liver, spleen, pancreas, and adrenal glands are normal. No intrahepatic biliary ductal dilatation is identified. Postsurgical changes of the cholecystectomy are identified. Bilateral renal calculi are identified. There is mild prominence of the left proximal ureter and collecting system. No mid or distal left ureteral calculus is identified. In the pelvis, thickening of the wall the urinary bladder is identified. This can be seen with cystitis. The uterus is grossly normal. Both ovaries are grossly normal. The small and large bowel are normal in caliber. The aorta is normal in caliber. No free air or free fluid is identified within the abdomen or pelvis. No lytic or blastic lesions of the spine are identified. Impression: Thickening of the wall the urinary bladder, which can be seen with cystitis. Multiple bilateral renal calculi with mild prominence of the left proximal ureter and left renal collecting system. No ureteral calculus is identified. Please note that all CT scans at this facility use dose modulation, iterative reconstruction, and/or weight-based dosing when appropriate to reduce radiation dose to as low as reasonably achievable. Dictated by Palmira Potts MD @ 04/16/2021 7:38:[address] Palmira Potts @ Apr 16 2021 7:38PM
== END 2021-04-16 20:42 | disposition home or self-care (01) ==
LOC: MW.ED 18:07
DX: N12 Tubulo-interstitial nephritis, not specified as acute or chronic (principal); J45.909 Unspecified asthma, uncomplicated; Z91.030 Bee allergy status; Z91.018 Allergy to other foods; Z88.5 Allergy status to narcotic agent; Z91.013 Allergy to seafood; Z91.041 Radiographic dye allergy status
CPT/HCPCS: 36415; 74176; 80053; 81001; 83605; 85025; 85610; 87040; 96365; 96375; 99284; J0744; J1885; J2405; J7030; 99283

== ENCOUNTER 2021-11-25 17:17 | Emergency (ER) | payer BC, MEDICAID ==
[2021-11-25] MEDS ORDERED: Ondansetron 4 MG/2 ML SDV IVPUSH ONE (19:11)
[2021-11-25] MEDS ORDERED: Sodium Chloride 0.9% 1,000 ML IV ONE ×2 (19:11→19:18)
[2021-11-25] MEDS ORDERED: Ketorolac 30 MG/ML SDV IVPUSH ONE (19:13)
[2021-11-25 20:15] LABS: BLOOD UREA NITROGEN,BUN 8 mg/dL (7.0-18.0); CARBON DIOXIDE,CO2 22.4 mmol/L (21.0-32.0); CHLORIDE,CL 100 mmol/L (98-107); GLUCOSE RANDOM 85 mg/dL (74-106); POTASSIUM,K 5.4 mmol/L (3.5-5.1); SODIUM,NA 134 mmol/L (136-145)
== END 2021-11-25 21:01 | disposition home or self-care (01) ==
LOC: MW.ED 17:17
DX: N13.2 Hydronephrosis with renal and ureteral calculous obstruction (principal); J45.909 Unspecified asthma, uncomplicated; Z91.030 Bee allergy status; Z88.5 Allergy status to narcotic agent; Z91.018 Allergy to other foods; Z91.013 Allergy to seafood; Z91.041 Radiographic dye allergy status
CPT/HCPCS: 36415; 74176; 80053; 81003; 81025; 83605; 85025; 96374; 96375; 99284; J1885; J2405; J7030

== ENCOUNTER 2022-01-01 17:43 | Emergency (ER) | payer BC ==
[2022-01-01] MEDS ORDERED: Sodium Chloride 0.9% 10 ML Syringe FLUSH PRN (18:05)
[2022-01-01] MEDS ORDERED: Sodium Chloride 0.9% 1,000 ML IV ONE (18:05)
[2022-01-01] MEDS ORDERED: diphenhydrAMINE 50 MG/ML SDV IVPUSH ONE (18:05)
[2022-01-01] MEDS ORDERED: Ketorolac 30 MG/ML SDV IVPUSH ONE (18:05)
[2022-01-01] MEDS ORDERED: Sodium Chloride 0.9% 2.5 ML Syringe FLUSH PRN (18:05)
[2022-01-01] MEDS ORDERED: Metoclopramide 10 MG/2 ML SDV IVPUSH ONE (18:05)
[2022-01-01] MEDS ORDERED: Dexamethasone 10 MG/ML SDV IVPUSH ONE (18:05)
[2022-01-01 18:46] LABS: BLOOD UREA NITROGEN,BUN 8 mg/dL (7.0-18.0); CARBON DIOXIDE,CO2 23.1 mmol/L (21.0-32.0); CHLORIDE,CL 102 mmol/L (98-107); GLUCOSE RANDOM 134 mg/dL (74-106); POTASSIUM,K 3.4 mmol/L (3.5-5.1); SODIUM,NA 140 mmol/L (136-145)
[2022-01-01] MEDS ORDERED: Potassium Chloride 10% 20 MEQ/15 ML Soln 30 ML UD Cup PO ONE (19:17)
== END 2022-01-01 20:00 | disposition home or self-care (01) ==
LOC: MW.ED 17:43
DX: G43.909 Migraine, unspecified, not intractable, without status migrainosus (principal); Z91.018 Allergy to other foods; Z88.5 Allergy status to narcotic agent; Z91.013 Allergy to seafood; Z91.041 Radiographic dye allergy status
CPT/HCPCS: 36415; 70450; 80053; 84703; 85025; 96374; 96375; 99284; A9270; J1100; J1200; J1885; J2765; J7030

== ENCOUNTER 2022-01-03 16:43 | Emergency (ER) | payer BC ==
[2022-01-03] MEDS ORDERED: diphenhydrAMINE 50 MG/ML SDV IVPUSH ONE (17:22)
[2022-01-03] MEDS ORDERED: Ketorolac 30 MG/ML SDV IVPUSH ONE (17:22)
[2022-01-03] MEDS ORDERED: Metoclopramide 10 MG/2 ML SDV IVPUSH ONE (17:22)
[2022-01-03] MEDS ORDERED: Acetaminophen/Butalbital/Caffeine 325-50-40 MG Tab PO ONE (17:24)
[2022-01-03] MEDS ORDERED: Sodium Chloride 0.9% 1,000 ML IV ONE (17:24)
[2022-01-03 18:46] LABS: CORONAVIRUS COVID-19 NAA NEGATIVE (NEGATIVE); INFLUENZA A NAA NEGATIVE (NEGATIVE); INFLUENZA B NAA NEGATIVE (NEGATIVE)
== END 2022-01-03 19:23 | disposition home or self-care (01) ==
LOC: MW.ED 16:43
DX: G43.909 Migraine, unspecified, not intractable, without status migrainosus (principal); Z88.5 Allergy status to narcotic agent; Z91.030 Bee allergy status; Z91.048 Other nonmedicinal substance allergy status; Z91.013 Allergy to seafood; Z91.041 Radiographic dye allergy status; Z20.822 Contact with and (suspected) exposure to COVID-19
CPT/HCPCS: 0240U; 87651; 96374; 96375; 99283; A9270; J1200; J1885; J2765; J7030

== ENCOUNTER 2022-05-29 18:31 | Emergency (ER) | payer BC, OTHER | END 2022-05-30 00:56 | disposition home or self-care (01) | LOC: MW.ED 18:31 | DX: N61.0 Mastitis without abscess (principal); Z91.030 Bee allergy status; Z91.041 Radiographic dye allergy status; Z91.013 Allergy to seafood; Z88.5 Allergy status to narcotic agent; Z91.018 Allergy to other foods | CPT/HCPCS: 99282; 99283 ==

== ENCOUNTER 2022-08-06 15:03 | Emergency (ER) | payer BC | END 2022-08-06 17:53 | disposition home or self-care (01) | LOC: MW.ED 15:03 | DX: K52.9 Noninfective gastroenteritis and colitis, unspecified (principal); E87.6 Hypokalemia | CPT/HCPCS: 96361; 96374; 96375; 99283; 99284-25 ==

== ENCOUNTER 2022-12-06 07:04 | Emergency (ER) | payer BC ==
[2022-12-06] MEDS ORDERED: diphenhydrAMINE 50 MG/ML SDV IVPUSH ONE (08:05)
[2022-12-06] MEDS ORDERED: Metoclopramide 10 MG/2 ML SDV IVPUSH ONE (08:05)
[2022-12-06] MEDS ORDERED: Sodium Chloride 0.9% 1,000 ML IV ONE (08:05)
[2022-12-06 09:06] LABS: CORONAVIRUS COVID-19 NAA NEGATIVE (NEGATIVE); INFLUENZA A NAA NEGATIVE (NEGATIVE); INFLUENZA B NAA NEGATIVE (NEGATIVE)
[2022-12-06] MEDS ORDERED: Ketorolac 30 MG/ML SDV IVPUSH ONE (12:17)
== END 2022-12-06 12:52 | disposition home or self-care (01) ==
LOC: MW.ED 07:04
DX: R51.9 Headache, unspecified (principal); Z91.030 Bee allergy status; Z88.6 Allergy status to analgesic agent; Z91.013 Allergy to seafood; Z91.041 Radiographic dye allergy status; Z79.899 Other long term (current) drug therapy; Z90.49 Acquired absence of other specified parts of digestive tract; Z20.822 Contact with and (suspected) exposure to COVID-19
CPT/HCPCS: 0240U; 36415; 70450; 70544; 70547; 84703; 96361; 96374; 96375; 99284; J1200; J1885; J2765; J7030; 99283

== ENCOUNTER 2023-01-13 22:43 | Emergency (ER) | payer BC ==
[2023-01-14] MEDS ORDERED: LORazepam 1 MG Tab PO ONE (00:18)
[2023-01-14 01:22] LABS: CARBON DIOXIDE,CO2 25.5 mmol/L (21.0-32.0); POTASSIUM,K 3.3 mmol/L (3.5-5.1)
== END 2023-01-14 01:55 | disposition home or self-care (01) ==
LOC: MW.ED 22:43
DX: F43.0 Acute stress reaction (principal); Z91.030 Bee allergy status; Z88.5 Allergy status to narcotic agent; Z91.013 Allergy to seafood; Z91.018 Allergy to other foods; Z91.041 Radiographic dye allergy status
CPT/HCPCS: 36415; 80053; 84484; 85025; 93005; 99285; A9270; 93010; 99284

== ENCOUNTER 2023-01-29 10:07 | Day surgery (SDC) | payer BC, OTHER ==
[~2023-01-29 10:07] MED LIST: Albuterol 0.083% 2.5 MG/3 ML Neb Soln NEB PRN; HYDROmorphone 1 MG/ML Syringe IVPUSH PRN; Lactated Ringers 1,000 ML IV SCH; Metoclopramide 10 MG/2 ML SDV IVPUSH PRN; Morphine 2 MG/ML SYRINGE IVPUSH PRN; Morphine Sulfate 10mg/ml SDV ONE; Naloxone 0.4 MG/ML SDV IVPUSH PRN; Ondansetron 4 MG/2 ML SDV IVPUSH PRN; Propofol 200 MG/20 ML SDV ONE; Scopolamine 1.5 MG Transdermal Patch TOP ONE; fentaNYL 100 MCG/2 ML SDV ONE; fentaNYL 50 MCG/ML SDV IVPUSH PRN
[2023-01-29] MEDS ORDERED: Bupivacaine 0.25% 30 ML SDV ONE (10:55)
[2023-01-29] MEDS ORDERED: Lidocaine 2% 11 ML Jelly Filled Syringe ONE (11:04)
[2023-01-29] MEDS ORDERED: Ropivacaine 0.5% 5 MG/ML 30 ML SDV ONE (11:04)
[2023-01-29] MEDS ORDERED: Famotidine 20 MG/2 ML SDV ONE (11:05)
[2023-01-29] MEDS ORDERED: fentaNYL 100 MCG/2 ML SDV ONE ×2 (11:13→11:56)
[2023-01-29 11:44] LABS: CARBON DIOXIDE,CO2 22.2 mmol/L (21.0-32.0); POTASSIUM,K 4.1 mmol/L (3.5-5.1)
[2023-01-29] MEDS ORDERED: Water For Injection, Sterile 40 ML ONE (12:13)
[2023-01-29] MEDS ORDERED: Rocuronium Bromide 50 MG/5 ML Syringe ONE (12:13)
[2023-01-29] MEDS ORDERED: Dexamethasone 4 MG/ML 5 ML MDV ONE (12:29)
[2023-01-29] MEDS ORDERED: Ketorolac 30 MG/ML SDV ONE (12:29)
[2023-01-29] MEDS ORDERED: Sugammadex Sodium 200 MG/2 ML VIAL ONE (12:30)
[2023-01-29] MEDS ORDERED: HYDROmorphone 2 MG/ML Syringe ONE (12:33)
[2023-01-29] MEDS ORDERED: Acetaminophen/oxyCODONE 325-5 MG Tab PO PRN (13:16)
== END 2023-01-29 13:51 | disposition home or self-care (01) ==
LOC: MW.SDS 10:07
PROVIDERS: ATTEND Obstetrics & Gynecology
DX: N94.6 Dysmenorrhea, unspecified (principal); J45.909 Unspecified asthma, uncomplicated; G43.909 Migraine, unspecified, not intractable, without status migrainosus; F41.9 Anxiety disorder, unspecified; F32.A Depression, unspecified; F17.290 Nicotine dependence, other tobacco product, uncomplicated; Z91.030 Bee allergy status; Z88.5 Allergy status to narcotic agent; Z91.013 Allergy to seafood; Z91.041 Radiographic dye allergy status
CPT/HCPCS: 36415; 58662; 80053; 81025; 85027; A9270; J0131; J1100; J1170; J1885; J2405; J2704; J2795; J3010; J3490; J7120; 00840; 64488; J2270

== ENCOUNTER 2023-10-18 00:06 | Emergency (ER) | payer OTHER ==
[2023-10-18] MEDS ORDERED: LORazepam 1 MG Tab PO ONE (02:09)
== END 2023-10-18 03:33 | disposition home or self-care (01) ==
LOC: MW.ED 00:06
DX: S10.91XA Abrasion of unspecified part of neck, initial encounter (principal); F43.0 Acute stress reaction; Z88.5 Allergy status to narcotic agent; Z91.013 Allergy to seafood; Z91.030 Bee allergy status; Z91.041 Radiographic dye allergy status; Z88.8 Allergy status to other drugs, medicaments and biological substances; Z79.899 Other long term (current) drug therapy; Y08.89XA Assault by other specified means, initial encounter; Y92.009 Unspecified place in unspecified non-institutional (private) residence as the place of occurrence of the external cause
CPT/HCPCS: 99283; A9270

== ENCOUNTER 2023-12-24 13:40 | Emergency (ER) | payer OTHER ==
[2023-12-24 14:01] LABS: APPEARANCE,URINE CLEAR; BILIRUBIN,URINE NEGATIVE (NEGATIVE); COLOR,URINE YELLOW; GLUCOSE,URINE NEGATIVE (NEGATIVE); KETONES,URINE NEGATIVE (NEGATIVE); LEUKOCYTE ESTERASE,URINE NEGATIVE (NEGATIVE); NITRITE,URINE NEGATIVE (NEGATIVE); OCCULT BLOOD,URINE LARGE (NEGATIVE); PH,URINE 6.5 (5.0-8.0); PROTEIN,URINE NEGATIVE (NEGATIVE); UROBILINOGEN,URINE 0.2 EU/dL (<2.0)
[2023-12-24 14:10] LABS: BACTERIA,URINE FEW (NEGATIVE); EPITHELIAL CELLS,URINE RARE (NONE-FEW); WBC,URINE 0-1 (0-5/HPF)
[2023-12-24] MEDS: Sodium Chloride 0.9% 1,000 ML IV ONE (15:08)
[2023-12-24] MEDS: Ketorolac 30 MG/ML SDV IVPUSH ONE (15:08)
[2023-12-24] MEDS: Ondansetron 4 MG/2 ML SDV IVPUSH ONE (15:08)
[2023-12-24 15:27] LABS: BASOPHILS ABSOLUTE AUTO 0.05 K/uL (0.00-0.20); BASOPHILS PERCENT AUTO 0.7 % (0.0-1.0); EOSINOPHILS ABSOLUTE AUTO 0.12 K/uL (0.00-0.45); EOSINOPHILS PERCENT AUTO 1.7 % (0.0-6.0); HEMATOCRIT 41.1 % (37.0-47.0); HEMOGLOBIN 14.7 g/dL (12.0-16.0); IMMATURE GRAN ABSOLUTE AUTO 0.01 K/uL (0.00-0.05); IMMATURE GRAN PERCENT AUTO 0.1 % (0.0-0.4); LYMPHOCYTES ABSOLUTE AUTO 1.61 K/uL (1.00-4.80); LYMPHOCYTES PERCENT AUTO 22.1 % (24.0-44.0); MEAN CORPUSCULAR HEMOGLOBIN 29.8 pg (28.0-32.0); MEAN CORPUSCULAR HGB CONC 35.8 g/dL (32.0-36.0); MEAN CORPUSCULAR VOLUME 83.2 fL (83.0-99.0); MEAN PLATELET VOLUME 8.9 fL (9.4-12.3); MONOCYTES ABSOLUTE AUTO 0.56 K/uL (0.00-0.80); MONOCYTES PERCENT AUTO 7.7 % (0.0-8.0); NEUTROPHILS ABSOLUTE AUTO 4.92 K/uL (1.80-7.70); NEUTROPHILS PERCENT AUTO 67.7 % (41.0-71.0); PLATELET COUNT,PLT 293 K/uL (150-400); RED BLOOD CELL COUNT 4.94 M/uL (4.10-5.30); WHITE BLOOD CELL COUNT,WBC 7.27 K/uL (3.9-11.3)
[2023-12-24 15:54] LABS: A/G RATIO 0.8 (0.9-1.6); ALBUMIN 3.4 g/dL (3.4-5.0); BILIRUBIN TOTAL 0.3 mg/dL (0.2-1.0); CALCIUM 9.1 mg/dL (8.5-10.1); CREATININE 0.6 mg/dL (0.6-1.0); EST CRCL DRUG DOSING (CG) 123.77 mL/min; POTASSIUM,K 3.8 mmol/L (3.5-5.1); PROTEIN TOTAL,TP 7.5 g/dL (6.4-8.2)
== END 2023-12-24 16:59 | disposition home or self-care (01) ==
LOC: MW.ED 13:40
DX: N20.0 Calculus of kidney (principal); Z91.013 Allergy to seafood; Z91.018 Allergy to other foods; Z91.041 Radiographic dye allergy status; Z91.030 Bee allergy status; Z88.5 Allergy status to narcotic agent; Z79.899 Other long term (current) drug therapy
CPT/HCPCS: 36415; 74176; 80053; 81001; 81025; 85025; 96361; 96374; 96375; 99284; J1885; J2405; J7030

== ENCOUNTER 2024-10-09 18:35 | Emergency (ER) | payer OTHER, MEDICAID | END 2024-10-09 20:10 | disposition left against medical advice (07) | LOC: MW.ED 18:35 | DX: Z53.21 Procedure and treatment not carried out due to patient leaving prior to being seen by health care provider (principal) | CPT/HCPCS: 93005 ==

== ENCOUNTER 2024-11-14 16:25 | Day surgery (SDC) | payer BC, MEDICAID ==
[2024-11-14] MEDS: Ertapenem 1 GM in Sodium Chloride 0.9% 50 ML IV ONE (17:47)
[2024-11-14] MEDS: Ketorolac 30 MG/ML SDV IVPUSH ONE (17:49)
[2024-11-14] MEDS ORDERED: fentaNYL 100 MCG/2 ML SDV ONE (18:41)
[2024-11-14] MEDS ORDERED: Propofol 200 MG/20 ML SDV ONE (18:41)
[2024-11-14] MEDS ORDERED: Ondansetron 4 MG/2 ML SDV ONE (18:42)
[2024-11-14] MEDS ORDERED: Rocuronium Bromide 50 MG/5 ML Syringe ONE (18:42)
[2024-11-14] MEDS ORDERED: Bupivacaine 0.25% 30 ML SDV ONE (18:42)
[2024-11-14] MEDS ORDERED: Lidocaine 1% 5 ML VIAL ONE (18:42)
[2024-11-14] MEDS ORDERED: Dexamethasone 4 MG/ML 5 ML MDV ONE (18:42)
[2024-11-14] MEDS ORDERED: Midazolam 1 MG/ML 2 ML SDV ONE (18:45)
[2024-11-14] MEDS ORDERED: Ketorolac 30 MG/ML SDV ONE (18:46)
[2024-11-14] MEDS ORDERED: Sugammadex Sodium 200 MG/2 ML VIAL IV ONE (18:46)
[2024-11-14] MEDS ORDERED: Ropivacaine 0.5% 5 MG/ML 30 ML SDV ONE (18:51)
[2024-11-14] MEDS ORDERED: Phenylephrine HCl In 0.9% NaCl 1 MG/10 ML Syringe ONE (19:46)
[2024-11-14] MEDS ORDERED: Ondansetron 4 MG/2 ML SDV IVPUSH PRN (21:11)
[2024-11-14] MEDS ORDERED: Acetaminophen/HYDROcodone 325-5 MG Tab PO PRN (21:11)
[2024-11-14] MEDS ORDERED: Acetaminophen 325 MG Tab PO PRN (21:11)
[2024-11-14] MEDS: Sodium Chloride 0.9% 1,000 ML IV SCH (22:11)
[2024-11-15] MEDS: Ketorolac 30 MG/ML SDV IVPUSH SCH (01:23)
== END 2024-11-15 11:00 | disposition home or self-care (01) ==
LOC: MW.ED 16:25 → MW.SDS 18:28 → MW.MS 18:28 → MW.SDS 11-15 11:00
PROVIDERS: ATTEND Surgery
DX: K35.33 Acute appendicitis with perforation, localized peritonitis, and gangrene, with abscess (principal); E66.9 Obesity, unspecified; Z88.5 Allergy status to narcotic agent; Z91.013 Allergy to seafood; Z91.030 Bee allergy status; R10.819 Abdominal tenderness, unspecified site; N20.0 Calculus of kidney
CPT/HCPCS: 00840; 36415; 64488; 74176; 74176-26; 80053; 81001; 81025; 85025; 96365; 96375; 99283; 99285-25; J0131; J0665; J1100; J1335; J1885; J2250; J2371; J2405; J2704; J2795; J3010; J3490; J7030

== ENCOUNTER 2024-11-22 17:15 | Emergency (ER) | payer BC, MEDICAID ==
[2024-11-22 18:27] LABS: BASOPHILS ABSOLUTE AUTO 0.03 K/uL (0.00-0.20); BASOPHILS PERCENT AUTO 0.3 % (0.0-1.0); EOSINOPHILS ABSOLUTE AUTO 0.03 K/uL (0.00-0.45); EOSINOPHILS PERCENT AUTO 0.3 % (0.0-6.0); HEMATOCRIT 41.4 % (37.0-47.0); HEMOGLOBIN 14.8 g/dL (12.0-16.0); IMMATURE GRAN ABSOLUTE AUTO 0.08 K/uL (0.00-0.05); IMMATURE GRAN PERCENT AUTO 0.7 % (0.0-0.4); LYMPHOCYTES ABSOLUTE AUTO 0.45 K/uL (1.00-4.80); MEAN CORPUSCULAR HEMOGLOBIN 29.4 pg (28.0-32.0); MEAN CORPUSCULAR HGB CONC 35.7 g/dL (32.0-36.0); MEAN CORPUSCULAR VOLUME 82.1 fL (83.0-99.0); MONOCYTES PERCENT AUTO 8.9 % (0.0-8.0); NEUTROPHILS PERCENT AUTO 85.8 % (41.0-71.0); PLATELET COUNT,PLT 272 K/uL (150-400); RED BLOOD CELL COUNT 5.04 M/uL (4.10-5.30); WHITE BLOOD CELL COUNT,WBC 11.19 K/uL (3.9-11.3)
[2024-11-22] MEDS: Lactated Ringers 1,000 ML IV STA (18:32)
[2024-11-22] MEDS: Ketorolac 30 MG/ML SDV IVPUSH STA (18:33)
[2024-11-22] MEDS: Ondansetron 4 MG/2 ML SDV IVPUSH STA (18:33)
[2024-11-22] MEDS: Acetaminophen 500 MG Tab PO STA (18:35)
[2024-11-22] MEDS: Oseltamivir 75 MG Cap PO STA (18:37)
[2024-11-22 18:40] LABS: APPEARANCE,URINE CLEAR; BILIRUBIN,URINE NEGATIVE (NEGATIVE); COLOR,URINE YELLOW; GLUCOSE,URINE NEGATIVE (NEGATIVE); KETONES,URINE NEGATIVE (NEGATIVE); LEUKOCYTE ESTERASE,URINE NEGATIVE (NEGATIVE); NITRITE,URINE NEGATIVE (NEGATIVE); OCCULT BLOOD,URINE NEGATIVE (NEGATIVE); PH,URINE 6.5 (5.0-8.0); PROTEIN,URINE NEGATIVE (NEGATIVE); UROBILINOGEN,URINE 0.2 EU/dL (<2.0)
[2024-11-22 18:53] LABS: A/G RATIO 1.1 (0.9-1.6); BILIRUBIN TOTAL 0.7 mg/dL (0.2-1.0); CALCIUM 9.1 mg/dL (8.5-10.1); CREATININE 0.7 mg/dL (0.6-1.0); EST CRCL DRUG DOSING (CG) 105.17 mL/min; POTASSIUM,K 3.7 mmol/L (3.5-5.1); PROTEIN TOTAL,TP 7.8 g/dL (6.4-8.2)
[2024-11-22 18:57] LABS: LACTIC ACID 1.2 mmol/L (0.4-2.0); PRO B-TYPE NATRIUR PEPT,BNPPRO 146 pg/mL (0-125)
== END 2024-11-22 20:02 | disposition home or self-care (01) ==
LOC: MW.ED 17:15
DX: J10.1 Influenza due to other identified influenza virus with other respiratory manifestations (principal); Z90.49 Acquired absence of other specified parts of digestive tract; Z90.710 Acquired absence of both cervix and uterus; Z79.899 Other long term (current) drug therapy; Z91.018 Allergy to other foods; Z88.5 Allergy status to narcotic agent; Z91.041 Radiographic dye allergy status; Z91.013 Allergy to seafood; Z91.030 Bee allergy status; Z75.8 Other problems related to medical facilities and other health care
CPT/HCPCS: 36415; 80053; 81003; 83605; 83690; 83880; 84484; 84703; 85025; 87040; 87428; 96361; 96374; 96375; 99284; A9270; J1885; J2405; J7120

== ENCOUNTER 2024-12-17 10:14 | Emergency (ER) | payer BC, MEDICAID ==
[2024-12-17 11:56] LABS: BASOPHILS ABSOLUTE AUTO 0.04 K/uL (0.00-0.20); BASOPHILS PERCENT AUTO 0.4 % (0.0-1.0); EOSINOPHILS ABSOLUTE AUTO 0.25 K/uL (0.00-0.45); EOSINOPHILS PERCENT AUTO 2.6 % (0.0-6.0); HEMATOCRIT 42.2 % (37.0-47.0); HEMOGLOBIN 14.9 g/dL (12.0-16.0); IMMATURE GRAN ABSOLUTE AUTO 0.06 K/uL (0.00-0.05); IMMATURE GRAN PERCENT AUTO 0.6 % (0.0-0.4); LYMPHOCYTES ABSOLUTE AUTO 1.53 K/uL (1.00-4.80); MEAN CORPUSCULAR HEMOGLOBIN 29.9 pg (28.0-32.0); MEAN CORPUSCULAR HGB CONC 35.3 g/dL (32.0-36.0); MEAN CORPUSCULAR VOLUME 84.7 fL (83.0-99.0); MONOCYTES ABSOLUTE AUTO 0.79 K/uL (0.00-0.80); MONOCYTES PERCENT AUTO 8.3 % (0.0-8.0); NEUTROPHILS ABSOLUTE AUTO 6.88 K/uL (1.80-7.70); NEUTROPHILS PERCENT AUTO 72.1 % (41.0-71.0); PLATELET COUNT,PLT 258 K/uL (150-400); RED BLOOD CELL COUNT 4.98 M/uL (4.10-5.30); WHITE BLOOD CELL COUNT,WBC 9.55 K/uL (3.9-11.3)
[2024-12-17] MEDS: Ketorolac 30 MG/ML SDV IVPUSH ONE (11:57)
[2024-12-17] MEDS: Sodium Chloride 0.9% 1,000 ML IV ONE (11:57)
[2024-12-17] MEDS: Ondansetron 4 MG/2 ML SDV IVPUSH ONE (11:57)
[2024-12-17 12:10] LABS: APPEARANCE,URINE CLEAR; BILIRUBIN,URINE NEGATIVE (NEGATIVE); COLOR,URINE YELLOW; GLUCOSE,URINE NEGATIVE (NEGATIVE); KETONES,URINE NEGATIVE (NEGATIVE); LEUKOCYTE ESTERASE,URINE NEGATIVE (NEGATIVE); NITRITE,URINE NEGATIVE (NEGATIVE); OCCULT BLOOD,URINE TRACE-INTACT (NEGATIVE); PROTEIN,URINE NEGATIVE (NEGATIVE); UROBILINOGEN,URINE 0.2 EU/dL (<2.0)
[2024-12-17 12:18] LABS: BACTERIA,URINE RARE (NEGATIVE); SQUAMOUS EPITHELIAL CELLS,UR FEW; WBC,URINE 0-2 (0-5/HPF)
[2024-12-17 12:19] LABS: MUCUS,URINE LIGHT (NONE-MOD)
[2024-12-17 12:34] LABS: A/G RATIO 0.9 (0.9-1.6); ALBUMIN 3.7 g/dL (3.4-5.0); BILIRUBIN TOTAL 0.4 mg/dL (0.2-1.0); CALCIUM 9.1 mg/dL (8.5-10.1); CREATININE 0.7 mg/dL (0.6-1.0); EST CRCL DRUG DOSING (CG) 105.17 mL/min; MAGNESIUM 1.9 mg/dL (1.8-2.4); POTASSIUM,K 4.4 mmol/L (3.5-5.1); PROTEIN TOTAL,TP 7.6 g/dL (6.4-8.2)
== END 2024-12-17 15:10 | disposition home or self-care (01) ==
LOC: MW.ED 10:14
DX: R10.32 Left lower quadrant pain (principal); F17.210 Nicotine dependence, cigarettes, uncomplicated; Z75.8 Other problems related to medical facilities and other health care; Z91.030 Bee allergy status; Z88.5 Allergy status to narcotic agent; Z91.013 Allergy to seafood; Z91.041 Radiographic dye allergy status; Z79.899 Other long term (current) drug therapy; Z90.710 Acquired absence of both cervix and uterus
CPT/HCPCS: 36415; 74176; 76857; 80053; 81001; 81025; 83690; 83735; 85025; 87428; 96361; 96374; 96375; 99284; J1885; J2405; J7030; 99283